=== PATIENT | female | born 1965 | race African-American/Black ===

== ENCOUNTER 2016-05-13 15:53 | Emergency (ER) | payer OTHER ==
[~2016-05-13 15:53] MED LIST: ALBU0.086 NEB; BACT800T5 PO; CLON-352 PO; DILA8TAB4 PO; GLUCTAB PO; LANTUS2P SC; PYRI200T4 PO; RITO80S PO; TRUVTAB2 PO
== END 2016-05-13 16:00 | disposition left against medical advice (07) ==
LOC: NEDAMB 15:53
DX: R10.9 Unspecified abdominal pain (principal); Z53.21 Procedure and treatment not carried out due to patient leaving prior to being seen by health care provider
CPT/HCPCS: 99281

== ENCOUNTER 2016-06-28 17:45 | Emergency (ER) | payer OTHER ==
[~2016-06-28] VITALS: Ht 175.3 cm; Wt 133.5 kg
[2016-06-28 17:47] VITALS: BP 183/84; PULSE 84; RESP 24; TEMP 98.7; O2SAT 99
[2016-06-28] MEDS ORDERED: methylPREDNISolone SOD SUCC 125 MG/2 ML VIAL IM STA (19:29)
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
== END 2016-06-28 20:18 | disposition home or self-care (01) ==
LOC: NETRI 17:45
DX: S16.1XXA Strain of muscle, fascia and tendon at neck level, initial encounter (principal); S39.012A Strain of muscle, fascia and tendon of lower back, initial encounter; V49.40XA Driver injured in collision with unspecified motor vehicles in traffic accident, initial encounter
CPT/HCPCS: 96372; 99282; J2930

== ENCOUNTER 2016-08-06 09:09 | Emergency (ER) | payer OTHER ==
[~2016-08-06] VITALS: Ht 175.3 cm; Wt 139.0 kg
[2016-08-06 09:10] VITALS: BP 180/77; PULSE 78; RESP 20; TEMP 99.1; O2SAT 98
--- NOTE | 2016-08-06 09:18 | PD ---
HPI . right eye drainage and pain Chief Complaint: Eye Problems/Injury Time Seen by Provider: 09:18 Travel History International Travel<30 days: No Contact w/Intl Traveler<30days: No Traveled to known affect area: No History of Present Illness HPI 50-year-old female with history of hypertension, diabetes, COPD, asthma, anxiety and HIV here with complaints of right eye pain for about 5 days. Patient says initially about 1 week prior to Tuesday she had right eye swelling. She says that subsided and then this Tuesday she started to experience some right eye pain and discharge. She says that for the past several days she's been having intermittent swelling of the right eye and eyelid. She admits to purulent drainage and having crust formation over her eye in the morning. She tells me that she has to pick it off. She admits to pain in her eye, but denies any foreign body sensation or trauma to the area. She does have a floor assembler, but has not seen them since July 2015. She denies any fever or chills. She has no abnormal skin lesions or pain elsewhere. PFSH Past Medical History Asthma: Yes Anxiety: Yes Cardiac Catheterization: No Cardiovascular Problems: Yes (HTN) High Cholesterol: No Congestive Heart Failure: No Diabetes: Yes Hypertension: Yes Immune Disorder: Yes (HIV +) Respiratory: Yes (COPD) Integumentary: Yes (S/P MRSA AFTER C SEC IN JAN 01) Myocardial Infarction: No Menopausal: No : 11 Para: 10 : 1 Past Surgical History Section: Yes (X2) Coronary Artery Bypass Graft: No Gynecologic Surgery: Yes (HX OF MRSA FOLLOWING C SECTION 12/26/06) Social History Alcohol Use: No Tobacco Use: Yes (2-3 CIGS PER DAY) Substance Use: No Allergies-Medications (Allergen,Severity, Reaction): Coded Allergies: Morphine (Verified Allergy, Severe, 06/28/16) Percocet (Verified Allergy, Severe, N/V-HIVES, 06/28/16) Reported Meds & Prescriptions Reported Meds & Active Scripts Active Erythromycin Opth Oint 5 Mg/Gm Oint 1 Applic RIGHT EYE BID 5 Days Proventil Ud 0.083% (2.5 Mg/3 Ml) (Albuterol Sulfate) 2.5 Mg/3 Ml Inha 2.5 Mg NEB Q4HR NEB Reported Dilaudid 8 mg (Hydromorphone HCl) 8 Mg Tab 8 Mg PO Q6H Lantus (Insulin Glargine) 100 Units/Ml Inj 20 Unit SC DAILY Glucophage XR 24 HR (Metformin HCl) 500 Mg Tab 500 Mg PO BIDPC Truvada (Emtricitabine/Tenofovir) Tab 1 Tab PO DAILY Norvir oral solution (Ritonavir) 80 Mg/Ml Tia 100 Mg PO DAILY Clonidine HCl ER (Clonidine HCl (Adhd)) 0.1 Mg Tab 0.3 Mg PO TID Review of Systems General / Constitutional: No: Fever Eyes: Positive: Drainage, Pain, No: Visual changes HENT: No: Headaches Cardiovascular: No: Chest Pain or Discomfort Respiratory: No: Shortness of Breath Gastrointestinal: No: Abdominal Pain Genitourinary: No: Dysuria Musculoskeletal: No: Pain Skin: No Rash Neurologic: No: Weakness Psychiatric: No: Depression Endocrine: No: Polydipsia Hematologic/Lymphatic: No: Easy Bruising Physical Exam Narrative GENERAL: AAO x 3, no acute distress, Well-nourished, well-developed patient. SKIN: Warm and dry. No visible rashes or bruising. HEAD: Normocephalic and atraumatic. EYES: No scleral icterus. EOM intact, PERRLA, Right eye: + injection, erythema present, but mild. no purulent drainage visualized. left eye normal ENT: No nasal drainage noted. Mucous membranes pink. Airway patent. NECK: Supple, trachea midline. No JVD. CARDIOVASCULAR: Regular rate and rhythm without murmurs, gallops, or rubs. RESPIRATORY: Breath sounds equal bilaterally. No accessory muscle use. No rhonchi or rales. GASTROINTESTINAL: Abdomen soft, non-tender, nondistended. EXTREMITIES: No cyanosis or edema. BACK: Nontender without obvious deformity. No CVA tenderness. PSYCH: AAO x 3, normal affect. Data Data Last Documented VS Vital Signs Date Time Temp Pulse Resp B/P Pulse Ox O2 Delivery O2 Flow Rate FiO2 08/06/16 09:10 99.1 78 20 180/77 98 Room Air MDM Medical Decision Making Medical Screen Exam Complete: Yes Emergency Medical Condition: Yes Medical Record Reviewed: Yes Differential Diagnosis conjunctivitis, less likely acute angle glaucoma, less likely retinal detachment Narrative Course 50-year-old female with history of hypertension, diabetes, COPD, asthma, anxiety and HIV here with complaints of right eye pain for about 5 days. Patient says initially about 1 week prior to Tuesday she had right eye swelling. She says that subsided and then this Tuesday she started to experience some right eye pain and discharge. She says that for the past several days she's been having intermittent swelling of the right eye and eyelid. She admits to purulent drainage and having crust formation over her eye in the morning. She tells me that she has to pick it off. She admits to pain in her eye, but denies any foreign body sensation or trauma to the area. She does have a floor assembler, but has not seen them since July 2015. She denies any fever or chills. She has no abnormal skin lesions or pain elsewhere. Patient seen and examined. She appears to have right eye conjunctivitis. She does admit to pain. Tonopen readings: right eye 21, 23, 24, left eye 21, 24, 25 I explained that her readings are slightly elevated and I recommend f/u with floor assembler today. I have provided her with antibiotic eye ointment. Patient verbalized understanding of instructions, questions were answered, and thanked me for their care. I advised them if their condition worsens, please return to the nearest emergency room for further care. Procedures Procedure Narrative Fluorescein eye staining procedure: right eye proparacaine drops instilled into the right eye Local anesthesia was accomplished. the eye was inspected for any type of obvious foreign body: none fluorescein stain was applied to look for corneal abrasion: none Diagnosis Primary Impression: Conjunctivitis Qualified Code: H10.31 - Acute conjunctivitis of right eye, unspecified acute conjunctivitis type Referrals: [employer] [facility] Patient Instructions: General Instructions Additional Instructions: Please call your eye doctor today and get in for an appointment. Please return to emergency department if your symptoms return or worsen. Follow up with your primary care provider. Take medications as prescribed. Med/Other Pt SpecificInfo: Prescription(s) given Scripts Erythromycin Opth Oint 5 Mg/Gm Oint1 Applic RIGHT EYE BID 5 Days Ref 0 Prov:Leonard Kulkarni MD 08/06/16 Disposition: 01 DISCHARGE HOME Condition: Stable Mary Silva August 06, 2016 09:18
[2016-08-06] MEDS ORDERED: ERYTOIN10 RIGHT EYE (09:28)
== END 2016-08-06 09:44 | disposition home or self-care (01) ==
LOC: NEPK 09:09
DX: H10.9 Unspecified conjunctivitis (principal); I10 Essential (primary) hypertension; E11.9 Type 2 diabetes mellitus without complications; J45.909 Unspecified asthma, uncomplicated; J44.9 Chronic obstructive pulmonary disease, unspecified; Z21 Asymptomatic human immunodeficiency virus [HIV] infection status; Z86.14 Personal history of Methicillin resistant Staphylococcus aureus infection; F17.210 Nicotine dependence, cigarettes, uncomplicated
CPT/HCPCS: 99283

== ENCOUNTER 2016-11-16 15:13 | Observation (INO) | payer OTHER ==
[~2016-11-16] VITALS: Ht 175.3 cm; Wt 134.0 kg
[~2016-11-16 15:13] MED LIST changes: -BACT800T5 PO; +ERYTOIN10 RIGHT EYE; -PYRI200T4 PO
[2016-11-16 15:14] VITALS: BP 179/88; PULSE 76; RESP 18; TEMP 99; O2SAT 98
--- NOTE | 2016-11-16 16:12 | PD ---
HPI Chief Complaint: Diabetic Time Seen by Provider: 16:12 Travel History International Travel<30 days: No Contact w/Intl Traveler<30days: No Traveled to known affect area: No History of Present Illness HPI 51-year-old female came to the emergency room with history of significant vaginal irritation for past 2-3 days that is progressively worsening, left- sided chest pain last night and sugar running high. Patient is a diabetic and her blood sugar in triage was 235. She says she supposed to be on metformin and insulin but her doctor did not continue her metformin prescriptions and hence currently she is only on insulin. Please see her blood sugar has been more than 200 and up to 350. Currently she is chest pain-free. Last night the pain was on the left side of her chest radiating down the left arm. Her main concern right now is her vaginal irritation. [facility] Past Medical History Narrative Medical List of her past medical, surgical, social and family history is reviewed from the nursing note. Asthma: Yes Anxiety: Yes Cardiac Catheterization: No Cardiovascular Problems: Yes High Cholesterol: No Congestive Heart Failure: No Diabetes: Yes Hypertension: Yes Immune Disorder: Yes (HIV +) Respiratory: Yes Integumentary: Yes (S/P MRSA AFTER C SEC IN JAN 01) Myocardial Infarction: No Menopausal: No : 11 Para: 10 : 1 Past Surgical History Section: Yes (X2) Coronary Artery Bypass Graft: No Gynecologic Surgery: Yes (HX OF MRSA FOLLOWING C SECTION 12/26/06) Social History Alcohol Use: No Tobacco Use: Yes (2-3 CIGS PER DAY) Substance Use: No Allergies-Medications (Allergen,Severity, Reaction): Coded Allergies: acetaminophen (Unverified Allergy, Severe, N/V-HIVES, 11/16/16) morphine (Unverified Allergy, Severe, 11/16/16) oxycodone (Unverified Allergy, Severe, N/V-HIVES, 11/16/16) Comments List of her allergies reviewed from the nursing note. Reported Meds & Prescriptions Reported Meds & Active Scripts Active Reported Albuterol Neb (Albuterol Sulfate) 2.5 Mg/0.5 Ml Neb 2.5 Mg NEB Q4HR NEB PRN Note: The Albuterol Sulfate Inhalation Solution is concentrated and must be diluted. Read complete instructions carefully before using. Truvada (Emtricitabine-Tenofovir Disoproxil Fumarate) 100-150 Mg Tab 1 Tab PO DAILY Lantus Inj (Insulin Glargine) 1,000 Unit/10 Ml Vial 29 Units SQ HS Metformin (Metformin HCl) 500 Mg Tab 500 Mg PO BIDPC With meals Norvir (Ritonavir) 100 Mg Cap 100 Mg PO DAILY Clonidine (Clonidine HCl) 0.3 Mg Tab 0.3 Mg PO TID Narrative Medication List of her home medications reviewed from the nursing note. Review of Systems Except as stated in HPI: all other systems reviewed are Neg Physical Exam Narrative GENERAL: Awake, alert, morbidly obese, moderate distress SKIN: Focused skin assessment warm/dry. HEAD: Atraumatic. Normocephalic. EYES: Pupils equal and round. No scleral icterus. No injection or drainage. ENT: No nasal bleeding or discharge. Mucous membranes pink and moist. NECK: Trachea midline. No JVD. CARDIOVASCULAR: Regular rate and rhythm. No murmur appreciated. RESPIRATORY: No accessory muscle use. Clear to auscultation. Breath sounds equal bilaterally. GASTROINTESTINAL: Abdomen soft, non-tender, nondistended. Hepatic and splenic margins not palpable. MUSCULOSKELETAL: No obvious deformities. No clubbing. No cyanosis. No edema. NEUROLOGICAL: Awake and alert. No obvious cranial nerve deficits. Motor grossly within normal limits. Normal speech. PSYCHIATRIC: Appropriate mood and affect; insight and judgment normal. Data Data Last Documented VS Vital Signs Date Time Temp Pulse Resp B/P (MAP) Pulse Ox O2 Delivery O2 Flow Rate FiO2 11/16/16 16:32 75 19 168/104 (125) 98 Room Air 11/16/16 15:14 99.0 Orders Orders Electrocardiogram (11/16/16 15:21) Complete Blood Count With Diff (11/16/16 15:21) Basic Metabolic Panel (Bmp) (11/16/16 15:21) Ckmb (Isoenzyme) Profile (11/16/16 15:21) Troponin I (11/16/16 15:21) Sodium Chlor 0.9% 1000 Ml Inj (Ns 1000 M (11/16/16 16:30) Clonidine 0.1 Mg Patch.7d (Catapres-Tts (11/16/16 16:30) Gc And Chlamydia Pcr (11/16/16 18:06) Wet Prep Profile (11/16/16 18:06) Urinalysis - C+S If Indicated (11/16/16 18:10) Fluconazole (Diflucan) (11/16/16 18:30) Admit Order (Ed Use Only) (11/16/16 18:32) Labs Laboratory Tests Test 11/16/16 16:50 11/16/16 18:06 11/16/16 18:10 White Blood Count 11.1 TH/MM3 Red Blood Count 5.37 MIL/MM3 Hemoglobin 11.3 GM/DL Hematocrit 37.0 % Mean Corpuscular Volume 68.8 FL Mean Corpuscular Hemoglobin 20.9 PG Mean Corpuscular Hemoglobin Concent 30.4 % Red Cell Distribution Width 19.7 % Platelet Count 372 TH/MM3 Mean Platelet Volume 9.1 FL Neutrophils (%) (Auto) 61.7 % Lymphocytes (%) (Auto) 29.6 % Monocytes (%) (Auto) 7.2 % Eosinophils (%) (Auto) 0.9 % Basophils (%) (Auto) 0.6 % Neutrophils # (Auto) 6.8 TH/MM3 Lymphocytes # (Auto) 3.3 TH/MM3 Monocytes # (Auto) 0.8 TH/MM3 Eosinophils # (Auto) 0.1 TH/MM3 Basophils # (Auto) 0.1 TH/MM3 CBC Comment DIFF FINAL Differential Comment Blood Urea Nitrogen 9 MG/DL Creatinine 1.02 MG/DL Random Glucose 287 MG/DL Calcium Level 8.9 MG/DL Sodium Level 140 MEQ/L Potassium Level 3.9 MEQ/L Chloride Level 101 MEQ/L Carbon Dioxide Level 31.2 MEQ/L Anion Gap 8 MEQ/L Estimat Glomerular Filtration Rate 69 ML/MIN Total Creatine Kinase 85 U/L Troponin I LESS THAN 0.02 NG/ML Urine Color YELLOW Urine Turbidity HAZY Urine pH 6.5 Urine Specific [place] 1.048 Urine Protein 30 mg/dL Urine Glucose (UA) 1000 mg/dL Urine Ketones TRACE mg/dL Urine Occult Blood NEG Urine Nitrite NEG Urine Bilirubin NEG Urine Urobilinogen 2.0 MG/DL Urine Leukocyte Esterase SMALL Urine WBC 2 /hpf Urine Squamous Epithelial Cells 1 /hpf Urine Bacteria MANY /hpf Urine Mucus MOD /lpf Microscopic Urinalysis Comment CULTURE INDICATED Chlamydia trachomatis DNA (PCR) NOT DETECTED Neisseria gonorrhoeae DNA (PCR) NOT DETECTED Clue Cells (Wet Prep) NONE SEEN Vaginal Trichomonas (Wet Prep) NONE SEEN Vaginal Yeast (Wet Prep) NONE SEEN MDM Medical Decision Making Medical Screen Exam Complete: Yes Emergency Medical Condition: Yes Medical Record Reviewed: Yes Interpretation(s) Twelve-lead EKG was reviewed by me. Normal sinus rhythm, normal axis, nonspecific ST-T wave changes. Heart rate of 67 bpm Differential Diagnosis Hyperglycemia, DKA, ACS, non-STEMI, aniket vaginitis Narrative Course 6:16 PM awaiting for blood test results to come back. Based on the pelvic exam I'll order Diflucan. Patient was given 1 L of IV fluid bolus. 6:33 PM blood test results of back and patient is hyperglycemic. Rest of the blood test results are acceptable. I would like to admit this patient to the chest pain center because of the episode she had last night. She has risk factors in the form of her obesity, uncontrolled diabetes. The mfts will decide on the stress test. Procedures EKG Prior to Arrival: No Diagnosis Primary Impression: Chest pain Qualified Codes: R07.9 - Chest pain, unspecified Additional Impressions: Candidal vaginitis Morbid obesity Admitting Information Admitting Physician Requests: Observation Leonard Kulkarni MD Nov 16, 2016 16:12
[2016-11-16] MEDS ORDERED: cloNIDine HCL 0.1 MG/24 HR PATCH T-DERMAL ONE (16:30)
[2016-11-16] MEDS ORDERED: SODIUM CHLOR 0.9% 1000 ML INJ 1,000 ML IV ONE (16:30)
[2016-11-16] MEDS ORDERED: EMTR1TAB5 PO (16:31)
[2016-11-16] MEDS ORDERED: RITO100 PO (16:31)
[2016-11-16] MEDS ORDERED: ALBU.5I NEB (16:31)
[2016-11-16] MEDS ORDERED: LANTUS2P SQ (16:31)
[2016-11-16] MEDS ORDERED: CLON0.3T PO (16:31)
[2016-11-16] MEDS ORDERED: METF500T PO (16:31)
[2016-11-16 16:32] VITALS: BP 168/104; PULSE 75; RESP 19; O2SAT 98
[2016-11-16 18:07] LABS: AUTOMATED NEUTROPHIL # 6.8 TH/MM3 (1.8-7.7); BASOPHIL # 0.1 TH/MM3 (0-0.2); BASOPHIL % 0.6 % (0.0-2.0); EOSINOPHIL # 0.1 TH/MM3 (0-0.4); EOSINOPHIL % 0.9 % (0.0-4.0); HEMO FLAGS DIFF FINAL; LYMPH % 29.6 % (9.0-44.0); LYMPHOCYTE # 3.3 TH/MM3 (1.0-4.8); MEAN CELL VOLUME 68.8 FL (80.0-100.0); MEAN CORPUSCULAR HEMOGLOBIN 20.9 PG (27.0-34.0); MEAN CORPUSCULAR HGB CONC 30.4 % (32.0-36.0); MONO % 7.2 % (0.0-8.0); NEUT % 61.7 % (16.0-70.0); PLATELET COUNT 372 TH/MM3 (150-450); RED BLOOD COUNT 5.37 MIL/MM3 (4.00-5.30); RED CELL DISTRIBUTION WIDTH 19.7 % (11.6-17.2); WHITE BLOOD COUNT 11.1 TH/MM3 (4.0-11.0)
[2016-11-16 18:30] LABS: ANION GAP 8 MEQ/L (5-15); BICARBONATE 31.2 MEQ/L (21.0-32.0); BLOOD UREA NITROGEN 9 MG/DL (7-18); CHLORIDE 101 MEQ/L (98-107); CREATINE KINASE 85 U/L (26-192); GLOMERULAR FILTRATION RATE 69 ML/MIN (>89); POTASSIUM 3.9 MEQ/L (3.5-5.1); SODIUM (NA) 140 MEQ/L (136-145)
[2016-11-16] MEDS ORDERED: FLUCONAZOLE 100 MG TAB PO ONE (18:30)
[2016-11-16 19:04] LABS: BACTERIA, URINE MANY /hpf; BLOOD, URINE NEG (NEG); COMMENT (UR) CULTURE INDICATED; CULTURE IF INDICATED CULTURE INDICATED; GLUCOSE,URINE 1000 mg/dL (NEG); KETONE, URINE TRACE mg/dL (NEG); MUCUS URINE MOD /lpf (OCC); NITRITE,URINE NEG (NEG); PH, URINE 6.5 (5.0-8.5); SQUAMOUS EPITHELIAL CELL URINE 1 /hpf (0-5); URINE COLOR YELLOW (YELLW/STRAW)
[2016-11-16 20:06] VITALS: BP 232/98; PULSE 80; RESP 17; TEMP 98.7; O2SAT 98
[2016-11-16] MEDS ORDERED: cloNIDine HCL 0.3 MG TAB PO ONE (20:15)
[2016-11-16 22:05] VITALS: BP 229/96; PULSE 60; RESP 18; O2SAT 98
[2016-11-16] MEDS ORDERED: hydrALAZINE HCL 20 MG/ML VIAL IV PUSH ONE (22:15)
[2016-11-16 22:59] LABS: CHLAMYDIA PCR NOT DETECTED (NOT DETECT); NEISSERIA PCR NOT DETECTED (NOT DETECT)
[2016-11-16] MEDS ORDERED: SODIUM CHLORIDE 0.9% FLUSH 10 ML FLUSH IV FLUSH PRN (23:45)
[2016-11-16] MEDS ORDERED: NITROGLYCERIN 0.4 MG SL 25 TABS/BTL SL PRN (23:45)
[2016-11-16] MEDS ORDERED: ONDANSETRON HCL 4 MG/2 ML VIAL IV PRN (23:45)
[2016-11-17] VITALS (9 sets, daily range): BP systolic 163–183; BP diastolic 70–84; PULSE 60–78; RESP 17–20; TEMP 98.2–98.7; O2SAT 96–98
[2016-11-17 00:23] LABS: CREATINE KINASE 70 U/L (26-192)
[2016-11-17] MEDS ORDERED: RITONAVIR 100 MG TAB PO SCH ×2 (00:30→09:00)
[2016-11-17 04:35] LABS: CREATINE KINASE 77 U/L (26-192)
--- NOTE | 2016-11-17 08:14 | HHI.HP ---
HPI Primary Care Physician Josefina Riley MD Chief Complaint Chest pain History of Present Illness 51-year-old female with history of diabetes, hypertension, HIV positive, and asthma presents to emergency room for evaluation of chest pain. Onset Tuesday evening while watching TV. Location substernal. Characterized as pressure. Pain came on quickly. No radiation of pain. Duration waxed and waned since Tuesday evening total duration 10 minutes. Associated symptoms of nausea. Denied vomiting, shortness breath, diaphoresis. No known precipitating or relieving factors. Reports she recently came emergency room for multiple complaints including blurred vision, fatigue, vaginal irritation for 2 days, and elevated blood sugar. Reported chest pain to ER physician therefore was placed in chest pain center. Review of Systems General: Fatigue last few days. No weakness, fever, chills, recent illness, or change in appetite. HEENT: Reports intermittent blurred vision. No current blurred vision. No [place], no nasal congestion or drainage, no dysphasia CV: As stated above. Denies any current CP and pressure. No palpitations, intermittent leg pain, or dizziness. RESP: No SOB, cough, wheeze, or recent URI. History of asthma. GI: No nausea, vomiting, bowel changes, diarrhea, constipation, or pain. : No dysuria, urgency, frequency, hematuria. ENCAPSULATOR: Vaginal itching and irritation EXT: No lower leg edema, no parathesias MS: No discomfort or change in ROM NEURO: No change in memory, dizziness, difficulty with balance, LOC, motor/ sensory deficits PSYCH: No anxiety, depression, suicidal ideation Past Family Social History Allergies: Coded Allergies: acetaminophen (Unverified Allergy, Severe, N/V-HIVES, 11/16/16) morphine (Unverified Allergy, Severe, 11/16/16) oxycodone (Unverified Allergy, Severe, N/V-HIVES, 11/16/16) Past Medical History Diabetes, hypertension, morbidly obese, asthma, anxiety, HIV positive Past Surgical History 2 Reported Medications Active Reported Albuterol Neb (Albuterol Sulfate) 2.5 Mg/0.5 Ml Neb 2.5 Mg NEB Q4HR NEB PRN Note: The Albuterol Sulfate Inhalation Solution is concentrated and must be diluted. Read complete instructions carefully before using. Truvada (Emtricitabine-Tenofovir Disoproxil Fumarate) 100-150 Mg Tab 1 Tab PO DAILY Lantus Inj (Insulin Glargine) 1,000 Unit/10 Ml Vial 29 Units SQ HS Metformin (Metformin HCl) 500 Mg Tab 500 Mg PO BIDPC With meals Norvir (Ritonavir) 100 Mg Cap 100 Mg PO DAILY Clonidine (Clonidine HCl) 0.3 Mg Tab 0.3 Mg PO TID Active Ordered Medications Current Medications Medications (Trade) Dose Ordered Sig/Stephanie Route Start Time Stop Time Status Last Admin (NS Flush) 2 ml UNSCH PRN IV FLUSH 11/16/16 23:45 (NS Flush) 2 ml BID IV FLUSH 11/17/16 09:00 (Zofran Inj) 4 mg Q6H PRN IV 11/16/16 23:45 (Nitrostat Sl) 0.4 mg Q5M PRN SL 11/16/16 23:45 (Aspirin) 325 mg DAILY PO 11/17/16 09:00 (Norvir) 100 mg ONCE PO 11/17/16 00:30 11/17/16 01:16 Social History Known diabetes and hypertension. No known hyperlipidemia. Not taking statin therapy. Endorses 2-3 cigarettes daily. Denies any alcohol or illegal drug use. Endorse sedentary lifestyle. Past cardiac testing 10/17/2015 cardiac catheterization (Dr. Cardenas)-Impressions 1. Normal left ventricular function. 2. Normal coronary arteries. 3. Noncardiac chest pain. Physical Exam Vital Signs Vital Signs Date Time Temp Pulse Resp B/P (MAP) Pulse Ox O2 Delivery O2 Flow Rate FiO2 11/17/16 08:02 21 11/17/16 04:39 98.2 68 20 183/78 (113) 98 11/17/16 04:00 72 11/17/16 01:08 98.5 74 20 163/70 (101) 96 11/17/16 00:59 78 11/17/16 00:25 98 21 11/17/16 00:10 60 17 164/80 (108) 98 11/16/16 22:05 60 18 229/96 (140) 98 Room Air 11/16/16 20:06 98.7 80 17 232/98 (142) 98 Room Air 11/16/16 16:32 75 19 168/104 (125) 98 Room Air 11/16/16 15:14 99.0 76 18 179/88 (118) 98 Room Air Physical Exam GENERAL: Alert WN, WD, NAD, pleasant, morbidly obese female HEAD: NC, AT NECK: Supple, no masses, trachea midline CV: RRR, without murmur, rub, gallop, no JVD, S1-S2 no S3-S4. RESP: Clear lungs throughout bilateral, no crackles, wheeze, rhonchi, symmetrical chest rise, nonlabored, able to speak in full sentences ABD: Soft, NT, ND, no masses, positive bowel tones, obese MS: Normal tone 4 extremities, nontender, no obvious deformities, full range of motion NEURO: CN II through CN XII grossly intact, motor strength 5/5 PSYCH: A+O 3, pleasant affect, appropriate speech, appropriate mood and affect , insight and judgment SKIN: Normal turgor, normal texture Laboratory Laboratory Tests Test 11/16/16 16:50 11/16/16 18:06 11/16/16 18:10 11/16/16 23:45 White Blood Count 11.1 Red Blood Count 5.37 Hemoglobin 11.3 Hematocrit 37.0 Mean Corpuscular Volume 68.8 Mean Corpuscular Hemoglobin 20.9 Mean Corpuscular Hemoglobin Concent 30.4 Red Cell Distribution Width 19.7 Platelet Count 372 Mean Platelet Volume 9.1 Neutrophils (%) (Auto) 61.7 Lymphocytes (%) (Auto) 29.6 Monocytes (%) (Auto) 7.2 Eosinophils (%) (Auto) 0.9 Basophils (%) (Auto) 0.6 Neutrophils # (Auto) 6.8 Lymphocytes # (Auto) 3.3 Monocytes # (Auto) 0.8 Eosinophils # (Auto) 0.1 Basophils # (Auto) 0.1 CBC Comment DIFF FINAL Differential Comment Blood Urea Nitrogen 9 Creatinine 1.02 Random Glucose 287 Calcium Level 8.9 Sodium Level 140 Potassium Level 3.9 Chloride Level 101 Carbon Dioxide Level 31.2 Anion Gap 8 Estimat Glomerular Filtration Rate 69 Total Creatine Kinase 85 70 Troponin I LESS THAN 0.02 LESS THAN 0.02 Urine Color YELLOW Urine Turbidity HAZY Urine pH 6.5 Urine Specific [place] 1.048 Urine Protein 30 Urine Glucose (UA) 1000 Urine Ketones TRACE Urine Occult Blood NEG Urine Nitrite NEG Urine Bilirubin NEG Urine Urobilinogen 2.0 Urine Leukocyte Esterase SMALL Urine WBC 2 Urine Squamous Epithelial Cells 1 Urine Bacteria MANY Urine Mucus MOD Microscopic Urinalysis Comment CULTURE INDICATED Chlamydia trachomatis DNA (PCR) NOT DETECTED Neisseria gonorrhoeae DNA (PCR) NOT DETECTED Clue Cells (Wet Prep) NONE SEEN Vaginal Trichomonas (Wet Prep) NONE SEEN Vaginal Yeast (Wet Prep) NONE SEEN Test 11/17/16 03:30 Total Creatine Kinase 77 Troponin I LESS THAN 0.02 Date/Time Source Procedure Growth Status 11/16/16 18:06 Urine Clean Catch Urine Culture Pending Received Result Diagram: 11/16/16164911/16/161649 Course EKG Normal sinus rhythm, no ST or T-segment changes Caprini VTE Risk Assessment Caprini VTE Risk Assessment: No/Low Risk (score <= 1) Caprini Risk Assessment Model Point Value = 1 Point Value = 2 Point Value = 3 Point Value = 5 Age 41-60 Minor surgery BMI > 25 kg/m2 Swollen legs Varicose veins or History of unexplained or recurrent spontaneous Oral contraceptives or hormone replacement Sepsis (< 1 month) Serious lung disease, including pneumonia (< 1 month) Abnormal pulmonary function Acute myocardial infarction Congestive heart failure (< 1 month) History of inflammatory bowel disease Medical patient at bed rest Age 61-74 Arthroscopic surgery Major open surgery (> 45 min) Laparoscopic surgery (> 45 min) Malignancy Confined to bed (> 72 hours) Immobilizing plaster cast Central venous access Age >= 75 History of VTE Family history of VTE Factor V Leiden Prothrombin [id number] Lupus anticoagulant Anticardiolipin antibodies Elevated serum homocysteine Heparin-induced thrombocytopenia Other congenital or acquired thrombophilia Stroke (< 1 month) Elective arthroplasty Hip, pelvis, or leg fracture Acute spinal cord injury (< 1 month) Prophylaxis Regimen Total Risk Factor Score Risk Level Prophylaxis Regimen 0-1 Low Early ambulation 2 Moderate Order ONE of the following: *Sequential Compression Device (SCD) *Heparin 5000 units SQ BID 3-4 Higher Order ONE of the following medications: *Heparin 5000 units SQ TID *Enoxaparin/Lovenox 40 mg SQ daily (WT < 150 kg, CrCl > 30 mL/min) *Enoxaparin/Lovenox 30 mg SQ daily (WT < 150 kg, CrCl > 10-29 mL/min) *Enoxaparin/Lovenox 30 mg SQ BID (WT < 150 kg, CrCl > 30 mL/min) AND/OR *Sequential Compression Device (SCD) 5 or more Highest Order ONE of the following medications: *Heparin 5000 units SQ TID (Preferred with Epidurals) *Enoxaparin/Lovenox 40 mg SQ daily (WT < 150 kg, CrCl > 30 mL/min) *Enoxaparin/Lovenox 30 mg SQ daily (WT < 150 kg, CrCl > 10-29 mL/min) *Enoxaparin/Lovenox 30 mg SQ BID (WT < 150 kg, CrCl > 30 mL/min) AND *Sequential Compression Device (SCD) Assessment and Plan Assessment and Plan #1 Atypical chest pain-admitted to chest pain center. Ruled out with 3 sets of EKGs, cardiac enzymes, monitor overnight. Seen and evaluated by Dr. Janet Cardenas. No further cardiac testing as patient had normal cardiac catheterization September 2015. Encouraged to follow-up with PCP and keep appointment scheduled for later this afternoon regarding her other complaints. Patient agreeable to plan of care. #2 Diabetes-continue metformin, follow-up with PCP, instructed her to notify PCP of intermittent blurred vision and increasing fatigue #3 Hypertension-continue clonidine, encouraged her to speak with PCP regarding other blood pressure options, encouraged low sodium diet #4 Adri vaginitis-pelvic exam completed by BAILEE FERNANDEZ and gave her Dayanna Davies Nov 17, 2016 08:14
--- NOTE | 2016-11-17 08:16 | HHI.DCPOC ---
Discharge Care Plan Diagnosis: (1) Atypical chest pain (2) DM (diabetes mellitus) (3) HTN (hypertension) (4) Morbid obesity Goals to Promote Your Health * To prevent worsening of your condition and complications * To maintain your health at the optimal level Directions to Meet Your Goals Take your medications as prescribed Follow your dietary instruction Follow activity as directed Keep your appointments as scheduled Take your immunizations and boosters as scheduled If your symptoms worsen call your PCP, if no PCP go to Urgent Care Center or Emergency Room Smoking is Dangerous to Your Health. Avoid second hand smoke Call the 24-hour hour crisis hotline for domestic abuse at Dayanna Liao Nov 17, 2016 08:16
[2016-11-17] MEDS ORDERED: cloNIDine HCL 0.3 MG TAB PO SCH (09:00)
[2016-11-17] MEDS ORDERED: metFORMIN HCL 500 MG TAB PO SCH (09:00)
[2016-11-17] MEDS ORDERED: ASPIRIN 325 MG TAB PO SCH (09:00)
[2016-11-17] MEDS ORDERED: SODIUM CHLORIDE 0.9% FLUSH 10 ML FLUSH IV FLUSH SCH (09:00)
[2016-11-17] MEDS ORDERED: TRUVADA PO SCH (09:00)
--- NOTE | 2016-11-17 17:48 | EKG ---
Date Performed: 11/17/2016 Time Performed: 02:30:47 PTAGE: 51 years EKG: Sinus rhythm NORMAL ECG Since PREVIOUS TRACING , no significant change noted PREVIOUS TRACIN11/16/2016 23.42 DOCTOR: Janet Cardenas Interpretating Date/Time 11/17/2016 17:46:51
--- NOTE | 2016-11-17 17:49 | EKG ---
Date Performed: 11/16/2016 Time Performed: 23:42:26 PTAGE: 51 years EKG: Sinus rhythm NORMAL ECG Since PREVIOUS TRACING , no significant change noted PREVIOUS TRACIN11/16/2016 16.13 DOCTOR: Janet Cardenas Interpretating Date/Time 11/17/2016 17:47:50
--- NOTE | 2016-11-17 19:54 | EKG ---
Date Performed: 11/16/2016 Time Performed: 16:13:32 PTAGE: 51 years EKG: Sinus rhythm NORMAL ECG PREVIOUS TRACING : 10/17/2015 13.04 Compared to prior tracing no significant change DOCTOR: Eddie Chang Interpretating Date/Time 11/17/2016 19:52:51
== END 2016-11-17 09:41 | disposition home or self-care (01) ==
LOC: NEPE 15:13 → NEDA 18:33 → NEDH 23:18 → NEPHCDU 11-17 02:38
PROVIDERS: ADMIT Internal Medicine Interventional Cardiology; ATTEND Internal Medicine Interventional Cardiology
DX: R07.89 Other chest pain (principal); I11.0 Hypertensive heart disease with heart failure; E11.65 Type 2 diabetes mellitus with hyperglycemia; E66.01 Morbid (severe) obesity due to excess calories; N39.0 Urinary tract infection, site not specified; B96.89 Other specified bacterial agents as the cause of diseases classified elsewhere; F17.210 Nicotine dependence, cigarettes, uncomplicated; Z79.4 Long term (current) use of insulin
CPT/HCPCS: 80048; 81001; 82550; 84484; 85025; 87086; 87210; 87491; 87591; 93005; 96361; 96374; 99285; G0378; J0360; J7030

== ENCOUNTER → 2016-12-24 | Outpatient (CLI) | payer OTHER ==
[~2016-12-24] MED LIST changes: +ALBU.5I NEB; -ALBU0.086 NEB; +BENZ100 PO; -CLON-352 PO; +CLON0.3T PO; -DILA8TAB4 PO; +EMTR1TAB5 PO; -ERYTOIN10 RIGHT EYE; -GLUCTAB PO; -LANTUS2P SC; +LANTUS2P SQ; +METF500T PO; +RITO100 PO; -RITO80S PO; -TRUVTAB2 PO
[2016-12-24 14:16] LABS: BASOPHIL # 0.1 TH/MM3 (0-0.2); BASOPHIL % 0.7 % (0.0-2.0); EOSINOPHIL # 0.2 TH/MM3 (0-0.4); EOSINOPHIL % 2.2 % (0.0-4.0); HEMATOCRIT 34.5 % (35.0-46.0); HEMO FLAGS DIFF FINAL; LYMPH % 37.1 % (9.0-44.0); LYMPHOCYTE # 2.8 TH/MM3 (1.0-4.8); MEAN CELL VOLUME 70.5 FL (80.0-100.0); MEAN CORPUSCULAR HEMOGLOBIN 21.6 PG (27.0-34.0); MEAN CORPUSCULAR HGB CONC 30.6 % (32.0-36.0); MONO % 7.7 % (0.0-8.0); NEUT % 52.3 % (16.0-70.0); PLATELET COUNT 450 TH/MM3 (150-450); RED BLOOD COUNT 4.88 MIL/MM3 (4.00-5.30); WHITE BLOOD COUNT 7.6 TH/MM3 (4.0-11.0)
[2016-12-24 14:26] LABS: BACTERIA, URINE MANY /hpf; BLOOD, URINE LARGE (NEG); GLUCOSE,URINE NEG (NEG); KETONE, URINE NEG (NEG); MUCUS URINE FEW /lpf (OCC); NITRITE,URINE POS (NEG); PH, URINE 7.5 (5.0-8.5); SQUAMOUS EPITHELIAL CELL URINE 4 /hpf (0-5); URINE COLOR YELLOW (YELLW/STRAW)
[2016-12-24 14:27] LABS: COMMENT (UR) CULTURE INDICATED; CULTURE IF INDICATED CULTURE INDICATED
[2016-12-24 14:40] LABS: ALT (GPT) 22 U/L (10-53); ANION GAP 7 MEQ/L (5-15); AST (GOT) 21 U/L (15-37); BICARBONATE 30.4 MEQ/L (21.0-32.0); BLOOD UREA NITROGEN 10 MG/DL (7-18); CHLORIDE 102 MEQ/L (98-107); GLOMERULAR FILTRATION RATE 79 ML/MIN (>89); GLUCOSE,FASTING 156 MG/DL (74-99); POTASSIUM 3.5 MEQ/L (3.5-5.1); SODIUM (NA) 139 MEQ/L (136-145)
[2016-12-24 14:43] LABS: ALKALINE PHOSPHATASE 74 U/L (45-117); HDL CHOLESTEROL 55.2 MG/DL (40.0-60.0); TOTAL BILIRUBIN ADULT 1.6 MG/DL (0.2-1.0)
[2016-12-24 17:24] LABS: HEMOGLOBIN A1a 1.6 %; HEMOGLOBIN A1b 2.9 %; HEMOGLOBIN Ao 76.9 %; HEMOGLOBIN LA1C 2.4 %; HEMOGLOBIN P3 4.3 %
[2016-12-29 13:49] LABS: HIV RNA COPIES LESS THAN 20.0 (<20); HIV RNA LOG COPIES LESS THAN 1.30 (<1.30)
== END ==
LOC: CLAB 13:30
PROVIDERS: ATTEND General Practice
DX: E87.8 Other disorders of electrolyte and fluid balance, not elsewhere classified (principal); D64.9 Anemia, unspecified; K75.9 Inflammatory liver disease, unspecified; A53.9 Syphilis, unspecified; N39.0 Urinary tract infection, site not specified; E55.9 Vitamin D deficiency, unspecified; E11.9 Type 2 diabetes mellitus without complications; B20 Human immunodeficiency virus [HIV] disease
CPT/HCPCS: 36415; 80053; 80061; 80074; 81001; 82306; 83036; 85025; 86592; 87077; 87086; 87186; 87536

== ENCOUNTER 2017-01-07 12:39 | Emergency (ER) | payer OTHER ==
[~2017-01-07] VITALS: Ht 175.3 cm; Wt 127.0 kg
[~2017-01-07 12:39] MED LIST changes: -BENZ100 PO
[2017-01-07 12:45] VITALS: BP 214/98; PULSE 94; RESP 15; TEMP 99.3; O2SAT 96
[2017-01-07] MEDS ORDERED: BENZ100 PO (14:04)
--- NOTE | 2017-01-07 14:06 | PD ---
HPI Chief Complaint: Cold / Flu Symptoms Time Seen by Provider: 13:25 Travel History International Travel<30 days: No Contact w/Intl Traveler<30days: No Traveled to known affect area: No History of Present Illness HPI 51-year-old female here requesting cough medication. Patient reports that three -day history of nasal congestion, sore throat, ear pain, cough. She was evaluated by her primary doctor and started on a Z-Kedar. Patient reports symptoms have persisted. She denies worsening of symptoms. She denies fever, chills, chest pain, shortness of breath, nausea vomiting or diarrhea. Patient has a history of HIV. She is compliant with her medications and report her last blood work this week her viral load was undetectable. FOR[facility]LY [facility], [facility] Past Medical History Asthma: Yes Anxiety: Yes Heart Rhythm Problems: No Cardiac Catheterization: Yes Cardiovascular Problems: Yes High Cholesterol: No Congestive Heart Failure: No Diabetes: Yes Patient Takes Glucophage: No Diminished Hearing: No Hypertension: Yes Immune Disorder: Yes (HIV +) Respiratory: Yes Integumentary: Yes (S/P MRSA AFTER C SEC IN JAN 01) Myocardial Infarction: No Tetanus Vaccination: Unknown Influenza Vaccination: Yes ?: Not Menopausal: No : 11 Para: 10 : 1 Past Surgical History Section: Yes (X2) Coronary Artery Bypass Graft: No Gynecologic Surgery: Yes (HX OF MRSA FOLLOWING C SECTION 12/26/06) Family History Family Myocardial Infarction: Yes Social History Alcohol Use: No Tobacco Use: Yes (2-3 CIGS PER DAY) Substance Use: No Allergies-Medications (Allergen,Severity, Reaction): Coded Allergies: acetaminophen (Unverified Allergy, Severe, N/V-HIVES, 01/07/17) morphine (Unverified Allergy, Severe, 01/07/17) oxycodone (Unverified Allergy, Severe, N/V-HIVES, 01/07/17) Reported Meds & Prescriptions Reported Meds & Active Scripts Active Tessalon Perles (Benzonatate) 100 Mg Cap 100 Mg PO TID PRN 5 Days Reported Albuterol Neb (Albuterol Sulfate) 2.5 Mg/0.5 Ml Neb 2.5 Mg NEB Q4HR NEB PRN Note: The Albuterol Sulfate Inhalation Solution is concentrated and must be diluted. Read complete instructions carefully before using. Truvada (Emtricitabine-Tenofovir Disoproxil Fumarate) 100-150 Mg Tab 1 Tab PO DAILY Lantus Inj (Insulin Glargine) 1,000 Unit/10 Ml Vial 29 Units SQ HS Metformin (Metformin HCl) 500 Mg Tab 500 Mg PO BIDPC With meals Norvir (Ritonavir) 100 Mg Cap 100 Mg PO DAILY Clonidine (Clonidine HCl) 0.3 Mg Tab 0.3 Mg PO TID Review of Systems Except as stated in HPI: all other systems reviewed are Neg General / Constitutional: No: Fever Eyes: No: Visual changes HENT: No: Headaches Cardiovascular: No: Chest Pain or Discomfort Respiratory: Positive: Cough, No: Shortness of Breath Gastrointestinal: No: Abdominal Pain Genitourinary: No: Dysuria Physical Exam Narrative GENERAL: Alert, well-appearing female in no acute distress. Resting comfortable and stretcher. SKIN: Warm and dry. HEAD: Atraumatic. Normocephalic. EYES: Pupils equal and round. No scleral icterus. No injection or drainage. ENT: No nasal bleeding or discharge. Mucous membranes pink and moist. NECK: Trachea midline. No JVD. CARDIOVASCULAR: Regular rate and rhythm. RESPIRATORY: No accessory muscle use. Clear to auscultation. Breath sounds equal bilaterally. GASTROINTESTINAL: Abdomen soft, non-tender, nondistended. Hepatic and splenic margins not palpable. MUSCULOSKELETAL: Extremities without clubbing, cyanosis, or edema. No obvious deformities. NEUROLOGICAL: Awake and alert. No obvious cranial nerve deficits. Motor grossly within normal limits. Five out of 5 muscle strength in the arms and legs. Normal speech. PSYCHIATRIC: Appropriate mood and affect; insight and judgment normal. Data Data Last Documented VS Vital Signs Date Time Temp Pulse Resp B/P (MAP) Pulse Ox O2 Delivery O2 Flow Rate FiO2 01/07/17 12:45 99.3 94 15 214/98 (136) 96 Orders Orders Ed Discharge Order (01/07/17 14:06) MDM Medical Decision Making Medical Screen Exam Complete: Yes Emergency Medical Condition: Yes Differential Diagnosis Otitis, pneumonia, URI, pharyngitis Narrative Course 55-year-old female here requesting cough medication. Patient had symptoms consistent with viral URI. She was seen by her PCP on Tuesday and prescribed azithromycin. She reports she is feeling better but the cough persists. She denies fever or chills. Her physical exam is reassuring. She is well and nontoxic appearing. She is found to be hypertensive on triage vital signs. She reports she did not take her clonidine this morning. She denies headache, visual changes, chest pain. She reports she'll take her clonidine upon discharge. Diagnosis Primary Impression: URI (upper respiratory infection) Qualified Codes: J06.9 - Acute upper respiratory infection, unspecified Referrals: Primary Care Physician Additional Instructions: Take the cough medication as needed. Follow-up with her primary doctor. Return to emergency department if he developed new or worsening symptoms. Scripts Benzonatate (Tessalon Perles) 100 Mg Cap 100 MG PO TID Y for COUGH for 5 Days, CAP 0 Refills Prov: Anupama Lee 01/07/17 Disposition: 01 DISCHARGE HOME Condition: Stable Anupama Lee Jan 07, 2017 14:06
== END 2017-01-07 14:18 | disposition home or self-care (01) ==
LOC: NEPC 12:39
DX: J06.9 Acute upper respiratory infection, unspecified (principal); F17.210 Nicotine dependence, cigarettes, uncomplicated
CPT/HCPCS: 99283

== ENCOUNTER 2017-02-23 13:51 | Emergency (ER) | payer MEDICAID, OTHER ==
[~2017-02-23] VITALS: Ht 175.3 cm; Wt 137.7 kg
[~2017-02-23 13:51] MED LIST changes: +BENZ100 PO
[2017-02-23 13:53] VITALS: BP 195/92; PULSE 81; RESP 18; TEMP 99.5; O2SAT 100
[2017-02-23] MEDS ORDERED: INSULIN (15:56)
[2017-02-23] MEDS ORDERED: CHOLESTEROL MED (15:56)
[2017-02-23] MEDS ORDERED: [UNRECOGNIZED DRUG - CODE] PO (15:56)
[2017-02-23] MEDS ORDERED: AMOX875T PO (16:08)
--- NOTE | 2017-02-23 16:09 | PD ---
HPI . Bilateral ear pain Chief Complaint: ENT Complaint Time Seen by Provider: 15:33 Travel History International Travel<30 days: No Contact w/Intl Traveler<30days: No Traveled to known affect area: No History of Present Illness HPI 51-year-old female patient presents emergency for evaluation of bilateral ear pain. Patient denies any fever, chills, malaise, shortness breath, chest pain, nausea, vomiting, diarrhea, throat pain or lightheadedness. Patient states the pain has been persistent for 2-3 days. Patient has history of hypertension, HIV and diabetes. PFSH Past Medical History Asthma: Yes Anxiety: Yes Heart Rhythm Problems: No Cardiac Catheterization: Yes Cardiovascular Problems: Yes (HTN) High Cholesterol: No Congestive Heart Failure: No Diabetes: Yes Diminished Hearing: No Hypertension: Yes Immune Disorder: Yes (HIV +) Respiratory: Yes (COPD) Integumentary: Yes (S/P MRSA AFTER C SEC IN JAN 01) Myocardial Infarction: No Menopausal: No : 11 Para: 10 : 1 Past Surgical History Section: Yes (X2) Coronary Artery Bypass Graft: No Gynecologic Surgery: Yes (HX OF MRSA FOLLOWING C SECTION 12/26/06) Social History Alcohol Use: No Tobacco Use: Yes (2-3 CIGS PER DAY) Substance Use: No Allergies-Medications (Allergen,Severity, Reaction): Coded Allergies: acetaminophen (Unverified Allergy, Severe, N/V-HIVES, 01/07/17) morphine (Unverified Allergy, Severe, 01/07/17) oxycodone (Unverified Allergy, Severe, N/V-HIVES, 01/07/17) Reported Meds & Prescriptions Reported Meds & Active Scripts Active Tessalon Perles (Benzonatate) 100 Mg Cap 100 Mg PO TID PRN 5 Days Reported Albuterol Neb (Albuterol Sulfate) 2.5 Mg/0.5 Ml Neb 2.5 Mg NEB Q4HR NEB PRN Note: The Albuterol Sulfate Inhalation Solution is concentrated and must be diluted. Read complete instructions carefully before using. Truvada (Emtricitabine-Tenofovir Disoproxil Fumarate) 100-150 Mg Tab 1 Tab PO DAILY Lantus Inj (Insulin Glargine) 1,000 Unit/10 Ml Vial 29 Units SQ HS Metformin (Metformin HCl) 500 Mg Tab 500 Mg PO BIDPC With meals Norvir (Ritonavir) 100 Mg Cap 100 Mg PO DAILY Clonidine (Clonidine HCl) 0.3 Mg Tab 0.3 Mg PO TID Review of Systems Except as stated in HPI: all other systems reviewed are Neg HENT: Positive: Earache Physical Exam Narrative GENERAL: Well-nourished, well-developed 51-year-old female patient in no acute distress. Nontoxic appearing. SKIN: Focused skin assessment warm/dry. HEAD: Normocephalic. Atraumatic. EYES: No scleral icterus. No injection or drainage. EARS: Bilateral pinnae and external canals appear within normal limits. Bilateral tympanic membranes are severely erythematous and dull. THROAT: No pharyngeal injection, exudates, or tonsillar hypertrophy. Airway is patent. NECK: Supple, trachea midline. No JVD or lymphadenopathy. CARDIOVASCULAR: Regular rate and rhythm without murmurs, gallops, or rubs. RESPIRATORY: Breath sounds equal bilaterally. No accessory muscle use. GASTROINTESTINAL: Abdomen soft, non-tender, nondistended. MUSCULOSKELETAL: No cyanosis, or edema. Data Data Last Documented VS Vital Signs Date Time Temp Pulse Resp B/P (MAP) Pulse Ox O2 Delivery O2 Flow Rate FiO2 02/23/17 13:53 99.5 81 18 195/92 (126) 100 Room Air MDM Medical Decision Making Medical Screen Exam Complete: Yes Emergency Medical Condition: Yes Differential Diagnosis Differential diagnoses include but not limited to otitis media, otitis externa, ear infection, upper respiratory infection Narrative Course 51-year-old female presents emergency department for evaluation of the bilateral ear pain. Physical exam is consistent with otitis media. Patient will be discharged home with prescription for amoxicillin and instructions to return the emergency Department with any worsening condition but otherwise follow-up with primary care. Diagnosis Primary Impression: Otitis media Qualified Codes: H66.93 - Otitis media, unspecified, bilateral Referrals: Primary Care Physician Patient Instructions: Earache (GEN), General Instructions, Serous Otitis Media (ED) Additional Instructions: Please return to emergency department if your symptoms return or worsen. Follow up with your primary care provider. Take medications as prescribed. Med/Other Pt SpecificInfo: Prescription(s) given Scripts Amoxicillin (Amoxicillin) 875 Mg Tab 875 MG PO BID for Infection for 10 Days, #20 TAB 0 Refills Prov: Dede Shelby 02/23/17 Disposition: 01 DISCHARGE HOME Condition: Stable Dede Shelby Feb 23, 2017 16:09
== END 2017-02-23 16:24 | disposition home or self-care (01) ==
LOC: NEPK 13:51
DX: H66.93 Otitis media, unspecified, bilateral (principal); I10 Essential (primary) hypertension; E11.9 Type 2 diabetes mellitus without complications; F41.9 Anxiety disorder, unspecified; J44.9 Chronic obstructive pulmonary disease, unspecified; F17.210 Nicotine dependence, cigarettes, uncomplicated; Z21 Asymptomatic human immunodeficiency virus [HIV] infection status; Z79.51 Long term (current) use of inhaled steroids; Z88.6 Allergy status to analgesic agent
CPT/HCPCS: 99283

== ENCOUNTER 2017-03-19 21:16 | Emergency (ER) | payer MEDICAID ==
[~2017-03-19] VITALS: Ht 175.3 cm; Wt 130.0 kg
[~2017-03-19 21:16] MED LIST changes: -ALBU.5I NEB; +AMOX875T PO; -BENZ100 PO; +CHOLESTEROL MED; +INSULIN; +[UNRECOGNIZED DRUG - CODE] PO
[2017-03-19 21:27] VITALS: BP 181/74; PULSE 90; RESP 20; TEMP 98.8; O2SAT 97
--- NOTE | 2017-03-19 21:44 | PD ---
HPI Chief Complaint: Diabetic Time Seen by Provider: 21:26 Travel History International Travel<30 days: No Contact w/Intl Traveler<30days: No Traveled to known affect area: No History of Present Illness HPI 51yo F with PMH of HTN and DM (metformin and lantus) presents to the ED with c/ o elevated blood glucose for a few days. Said she has been feeling unwell and generalized weakness for a few days as well as increased urinary frequency. Denies any fever, chest pain, sob, n/v, abdominal pain. PFSH Past Medical History Asthma: Yes Anxiety: Yes Heart Rhythm Problems: No Cardiac Catheterization: Yes Cardiovascular Problems: Yes (HTN) High Cholesterol: No Congestive Heart Failure: No Diabetes: Yes Patient Takes Glucophage: No Diminished Hearing: No Hypertension: Yes Immune Disorder: Yes (HIV +) Respiratory: Yes (COPD) Integumentary: Yes (S/P MRSA AFTER C SEC IN JAN 01) Myocardial Infarction: No Tetanus Vaccination: Unknown ?: Not Menopausal: No : 11 Para: 10 : 1 Past Surgical History Section: Yes (X2) Coronary Artery Bypass Graft: No Gynecologic Surgery: Yes (HX OF MRSA FOLLOWING C SECTION 12/26/06) Family History Family Myocardial Infarction: Yes Social History Alcohol Use: No Tobacco Use: Yes (2-3 CIGS PER DAY) Substance Use: No Allergies-Medications (Allergen,Severity, Reaction): Coded Allergies: acetaminophen (Unverified Allergy, Severe, N/V-HIVES, 03/19/17) morphine (Unverified Allergy, Severe, 03/19/17) oxycodone (Unverified Allergy, Severe, N/V-HIVES, 03/19/17) Reported Meds & Prescriptions Reported Meds & Active Scripts Active Reported Lantus Inj (Insulin Glargine) 1,000 Unit/10 Ml Vial 34 Units SQ HS Metformin (Metformin HCl) 500 Mg Tab 500 Mg PO DAILY With a meal Metformin (Metformin HCl) 1,000 Mg Tab 1,000 Mg PO DAILY With a meal [Insulin] [Cholesterol Med] Clonidine (Clonidine HCl) 0.3 Mg Tab 0.3 Mg PO TID Review of Systems Except as stated in HPI: all other systems reviewed are Neg Physical Exam Narrative GENERAL: 51yo F in mild distress. SKIN: Focused skin assessment warm/dry. HEAD: Atraumatic. Normocephalic. EYES: Pupils equal and round. No scleral icterus. No injection or drainage. ENT: No nasal bleeding or discharge. Mucous membranes pink and moist. NECK: Trachea midline. No JVD. CARDIOVASCULAR: Regular rate and rhythm. No murmur appreciated. RESPIRATORY: No accessory muscle use. Clear to auscultation. Breath sounds equal bilaterally. GASTROINTESTINAL: Abdomen soft, mild right flank ttp. No rebound tenderness or guarding. MUSCULOSKELETAL: No obvious deformities. No clubbing. No cyanosis. No edema. NEUROLOGICAL: Awake and alert. No obvious cranial nerve deficits. Motor grossly within normal limits. Normal speech. PSYCHIATRIC: Appropriate mood and affect; insight and judgment normal. Data Data Last Documented VS Vital Signs Date Time Temp Pulse Resp B/P (MAP) Pulse Ox O2 Delivery O2 Flow Rate FiO2 03/19/17 21:39 98 Room Air 03/19/17 21:27 98.8 90 20 181/74 (109) Orders Orders Electrocardiogram (03/19/17 ) Complete Blood Count With Diff (03/19/17 21:41) Comprehensive Metabolic Panel (03/19/17 21:41) Urinalysis - C+S If Indicated (03/19/17 21:41) Beta Hydroxybutyrate (Acetone) (03/19/17 21:41) Blood Gas Venous (Vbg) (03/19/17 21:44) Sodium Chlor 0.9% 1000 Ml Inj (Ns 1000 M (03/19/17 21:45) Insulin Human Regular Inj (Novolin R Inj (03/19/17 23:45) Blood Glucose (03/20/17 00:50) Urine Culture (03/19/17 23:55) Labs Laboratory Tests Test 03/19/17 21:50 03/19/17 22:00 03/19/17 23:55 Blood Gas Puncture Site FROM IV LOCK Blood Gas Patient Temperature 98.0 Venous Blood pH 7.39 Venous Blood Partial Pressure CO2 49 mmHg Venous Blood Partial Pressure O2 27 mmHg Venous Blood HCO3 29 mmol/L Venous Blood Oxygen Saturation 42 % Venous Blood Oxygen Content 6.3 Vol % Venous Blood Base Excess 4.7 mmol/L Oxygen Delivery Device ROOM AIR Blood Gas Inspired Oxygen 21 % White Blood Count 9.1 TH/MM3 Red Blood Count 4.69 MIL/MM3 Hemoglobin 10.6 GM/DL Hematocrit 33.9 % Mean Corpuscular Volume 72.3 FL Mean Corpuscular Hemoglobin 22.6 PG Mean Corpuscular Hemoglobin Concent 31.3 % Red Cell Distribution Width 17.5 % Platelet Count 328 TH/MM3 Mean Platelet Volume 8.9 FL Neutrophils (%) (Auto) 53.6 % Lymphocytes (%) (Auto) 35.1 % Monocytes (%) (Auto) 7.8 % Eosinophils (%) (Auto) 2.7 % Basophils (%) (Auto) 0.8 % Neutrophils # (Auto) 4.9 TH/MM3 Lymphocytes # (Auto) 3.2 TH/MM3 Monocytes # (Auto) 0.7 TH/MM3 Eosinophils # (Auto) 0.2 TH/MM3 Basophils # (Auto) 0.1 TH/MM3 CBC Comment DIFF FINAL Differential Comment Blood Urea Nitrogen 9 MG/DL Creatinine 1.17 MG/DL Random Glucose 420 MG/DL Total Protein 7.2 GM/DL Albumin 3.2 GM/DL Calcium Level 8.9 MG/DL Alkaline Phosphatase 78 U/L Aspartate Amino Transf (AST/SGOT) 17 U/L Alanine Aminotransferase (ALT/SGPT) 24 U/L Total Bilirubin 0.5 MG/DL Sodium Level 136 MEQ/L Potassium Level 3.6 MEQ/L Chloride Level 100 MEQ/L Carbon Dioxide Level 29.6 MEQ/L Anion Gap 6 MEQ/L Estimat Glomerular Filtration Rate 59 ML/MIN B-Hydroxybutyrate 0.07 MMOL/L Urine Color LIGHT-YELLOW Urine Turbidity CLEAR Urine pH 6.5 Urine Specific [place] 1.035 Urine Protein NEG mg/dL Urine Glucose (UA) 1000 mg/dL Urine Ketones NEG mg/dL Urine Occult Blood NEG Urine Nitrite NEG Urine Bilirubin NEG Urine Urobilinogen LESS THAN 2.0 MG/DL Urine Leukocyte Esterase LARGE Urine RBC 3 /hpf Urine WBC 7 /hpf Urine Squamous Epithelial Cells 4 /hpf Urine Bacteria MOD /hpf Microscopic Urinalysis Comment CULTURE INDICATED MDM Medical Decision Making Medical Screen Exam Complete: Yes Emergency Medical Condition: Yes Interpretation(s) EKG: NSR 88bpm. Normal axis. TWI V2. No ST segment elevation or depression. Differential Diagnosis Uncontrolled DM vs. UTI vs. DKA Narrative Course 51yo F with complaint of elevated blood glucose. Labs reviewed, no leukocytosis. H/H low at 10.6/33.9 but this is her baseline. Glucose elevated at 420. CO2 29.6. Normal anion gap. Creatinine mildly elevated at 1.17. Pt given NS IVF and regular insulin 8 units. Repeat glucose is 332. Pt reevaluated at bedside and feels better. UA showed large leukocyte. WBC 7. Pt is symptomatic. Will treat for UTI. Given first dose of macrobid here. Return precautions given. Diagnosis Primary Impression: UTI (urinary tract infection) Qualified Codes: N39.0 - Urinary tract infection, site not specified Additional Impression: DM (diabetes mellitus) Patient Instructions: General Instructions Departure Forms: Tests/Procedures Additional Instructions: Please follow up with your primary care physician in 3-7 days. Return to the ED if symptoms worsen. Med/Other Pt SpecificInfo: Prescription(s) given Scripts Nitrofurantoin Monohydrate Macrocrystals (Macrobid) 100 Mg Cap 100 MG PO BID for Infection for 5 Days, #10 CAP 0 Refills Prov: Candice Wise DO 03/20/17 Disposition: 01 DISCHARGE HOME Condition: Stable Candice Wise DO Mar 19, 2017 21:44
[2017-03-19] MEDS ORDERED: SODIUM CHLOR 0.9% 1000 ML INJ 1,000 ML IV ONE (21:45)
[2017-03-19] MEDS ORDERED: METF1000 PO (22:09)
[2017-03-19] MEDS ORDERED: METF500T PO (22:09)
[2017-03-19] MEDS ORDERED: LANTUS2P SQ (22:09)
[2017-03-19 23:24] LABS: AUTOMATED NEUTROPHIL # 4.9 TH/MM3 (1.8-7.7); BASOPHIL # 0.1 TH/MM3 (0-0.2); BASOPHIL % 0.8 % (0.0-2.0); EOSINOPHIL # 0.2 TH/MM3 (0-0.4); EOSINOPHIL % 2.7 % (0.0-4.0); HEMATOCRIT 33.9 % (35.0-46.0); HEMOGLOBIN 10.6 GM/DL (11.6-15.3); LYMPH % 35.1 % (9.0-44.0); LYMPHOCYTE # 3.2 TH/MM3 (1.0-4.8); MEAN CELL VOLUME 72.3 FL (80.0-100.0); MEAN CORPUSCULAR HEMOGLOBIN 22.6 PG (27.0-34.0); MEAN CORPUSCULAR HGB CONC 31.3 % (32.0-36.0); MEAN PLATELET VOLUME 8.9 FL (7.0-11.0); MONO % 7.8 % (0.0-8.0); MONOCYTE # 0.7 TH/MM3 (0-0.9); NEUT % 53.6 % (16.0-70.0); PLATELET COUNT 328 TH/MM3 (150-450); RED BLOOD COUNT 4.69 MIL/MM3 (4.00-5.30); RED CELL DISTRIBUTION WIDTH 17.5 % (11.6-17.2); WHITE BLOOD COUNT 9.1 TH/MM3 (4.0-11.0)
[2017-03-19 23:26] LABS: ALBUMIN 3.2 GM/DL (3.4-5.0); ALKALINE PHOSPHATASE 78 U/L (45-117); ALT (GPT) 24 U/L (10-53); AST (GOT) 17 U/L (15-37); BICARBONATE 29.6 MEQ/L (21.0-32.0); BLOOD UREA NITROGEN 9 MG/DL (7-18); CALCIUM 8.9 MG/DL (8.5-10.1); CHLORIDE 100 MEQ/L (98-107); CREATININE 1.17 MG/DL (0.50-1.00); GLOMERULAR FILTRATION RATE 59 ML/MIN (>89); SODIUM (NA) 136 MEQ/L (136-145); TOTAL BILIRUBIN ADULT 0.5 MG/DL (0.2-1.0); TOTAL PROTEIN 7.2 GM/DL (6.4-8.2)
[2017-03-19 23:28] LABS: GLUCOSE,RANDOM 420 MG/DL (74-106)
[2017-03-19] MEDS ORDERED: INSULIN HUMAN REGULAR 1,000 UNITS/10 ML VIAL SQ ONE (23:45)
[2017-03-20 01:43] LABS: BACTERIA, URINE MOD /hpf; BILIRUBIN, URINE NEG (NEG); BLOOD, URINE NEG (NEG); GLUCOSE,URINE 1000 mg/dL (NEG); KETONE, URINE NEG (NEG); NITRITE,URINE NEG (NEG); PH, URINE 6.5 (5.0-8.5); SQUAMOUS EPITHELIAL CELL URINE 4 /hpf (0-5); URINE COLOR LIGHT-YELLOW (YELLW/STRAW); URINE LEUKOCYTE ESTERASE LARGE (NEG)
[2017-03-20] MEDS ORDERED: NITROFURANTOIN MONOHYD MACROCR 100 MG CAP PO ONE (02:15)
[2017-03-20] MEDS ORDERED: MACR100C2 PO (02:15)
[2017-03-20 02:57] VITALS: BP 167/72
--- NOTE | 2017-03-20 21:41 | EKG ---
Date Performed: 03/19/2017 Time Performed: 21:52:13 PTAGE: 51 years EKG: Sinus rhythm NORMAL ECG PREVIOUS TRACING : 11/17/2016 02.30 Compared to prior tracing no significant change DOCTOR: Eddie Chang Interpretating Date/Time 03/20/2017 21:40:47
== END 2017-03-20 03:01 | disposition home or self-care (01) ==
LOC: NEPC 21:16
DX: N39.0 Urinary tract infection, site not specified (principal); B96.20 Unspecified Escherichia coli [E. coli] as the cause of diseases classified elsewhere; E11.65 Type 2 diabetes mellitus with hyperglycemia; I10 Essential (primary) hypertension; F41.9 Anxiety disorder, unspecified; J44.9 Chronic obstructive pulmonary disease, unspecified; F17.210 Nicotine dependence, cigarettes, uncomplicated; Z21 Asymptomatic human immunodeficiency virus [HIV] infection status; Z79.4 Long term (current) use of insulin
CPT/HCPCS: 80053; 81001; 82010; 82805; 85025; 87077; 87086; 87186; 93005; 96360; 96361; 96372; 99284; J1815; J7030

== ENCOUNTER 2017-04-07 12:41 | Emergency (ER) | payer MEDICAID ==
[~2017-04-07] VITALS: Ht 175.3 cm; Wt 131.8 kg
[~2017-04-07 12:41] MED LIST changes: -AMOX875T PO; -EMTR1TAB5 PO; +MACR100C2 PO; +METF1000 PO; -RITO100 PO; -[UNRECOGNIZED DRUG - CODE] PO
[2017-04-07 12:42] VITALS: BP 162/76; PULSE 89; RESP 20; TEMP 97.9; O2SAT 96
[2017-04-07] MEDS ORDERED: BENZ100 PO (13:42)
[2017-04-07] MEDS ORDERED: IBUP1TAB7 PO (13:42)
--- NOTE | 2017-04-07 13:43 | PD ---
HPI Chief Complaint: Cold / Flu Symptoms Time Seen by Provider: 13:32 Travel History International Travel<30 days: No Contact w/Intl Traveler<30days: No Traveled to known affect area: No History of Present Illness HPI 51-year-old female here with nasal congestion, sore throat, cough 3 days. Subjective fever. Symptom severity is moderate. No aggravating or alleviating factors. Her son has similar symptoms and was diagnosed with a URI. PFSH Past Medical History Asthma: Yes Anxiety: Yes Heart Rhythm Problems: No Cardiac Catheterization: Yes Cardiovascular Problems: Yes (HTN) High Cholesterol: No Congestive Heart Failure: No COPD: Yes Diabetes: Yes Patient Takes Glucophage: Yes Diminished Hearing: No Hypertension: Yes (not on meds x 2 months) Immune Disorder: Yes (HIV +) Respiratory: Yes Integumentary: Yes (S/P MRSA AFTER C SEC IN JAN 01) Myocardial Infarction: No ?: Not Menopausal: No : 11 Para: 10 : 1 Past Surgical History Section: Yes (X2) Coronary Artery Bypass Graft: No Gynecologic Surgery: Yes (HX OF MRSA FOLLOWING C SECTION 12/26/06) Family History Family Myocardial Infarction: Yes Social History Alcohol Use: No Tobacco Use: Yes Substance Use: No Allergies-Medications (Allergen,Severity, Reaction): Coded Allergies: acetaminophen (Unverified Allergy, Severe, N/V-HIVES, 04/07/17) morphine (Unverified Allergy, Severe, 04/07/17) oxycodone (Unverified Allergy, Severe, N/V-HIVES, 04/07/17) Reported Meds & Prescriptions Reported Meds & Active Scripts Active Ibuprofen 800 Mg Tab 800 Mg PO Q6HR PRN Tessalon Perles (Benzonatate) 100 Mg Cap 200 Mg PO TID PRN Reported Lantus Inj (Insulin Glargine) 1,000 Unit/10 Ml Vial 34 Units SQ HS Metformin (Metformin HCl) 1,000 Mg Tab 1,000 Mg PO DAILY With a meal [Cholesterol Med] Clonidine (Clonidine HCl) 0.3 Mg Tab 0.3 Mg PO TID Review of Systems Except as stated in HPI: all other systems reviewed are Neg General / Constitutional: Positive: Fever Eyes: No: Visual changes HENT: Positive: Sore Throat, Congestion Cardiovascular: No: Chest Pain or Discomfort Respiratory: Positive: Cough Gastrointestinal: No: Abdominal Pain Genitourinary: No: Dysuria Musculoskeletal: No: Pain Physical Exam Narrative GENERAL: Alert female well-appearing. SKIN: Warm and dry. No rash. HEAD: Normocephalic. EYES: No injection or drainage. NOSE: Clear nasal discharge. THROAT: Mild pharyngeal erythema without tonsillar hypertrophy or exudate. Uvula is midline. Airway is patent. NECK: Supple, trachea midline. No JVD or lymphadenopathy. CARDIOVASCULAR: Regular rate and rhythm RESPIRATORY: Breath sounds equal bilaterally. No accessory muscle use. Data Data Last Documented VS Vital Signs Date Time Temp Pulse Resp B/P (MAP) Pulse Ox O2 Delivery O2 Flow Rate FiO2 04/07/17 12:42 97.9 89 20 162/76 (104) 96 Room Air MDM Medical Decision Making Medical Screen Exam Complete: Yes Emergency Medical Condition: Yes Differential Diagnosis URI, bronchitis, influenza Narrative Course 51-year-old female here with mild URI-like symptoms. She is nontoxic appearing. Her vital signs are stable. She will be treated with Tessalon Perles and ibuprofen. Diagnosis Primary Impression: URI (upper respiratory infection) Qualified Codes: J06.9 - Acute upper respiratory infection, unspecified; B97.89 - Other viral agents as the cause of diseases classified elsewhere Referrals: Primary Care Physician Additional Instructions: Rest and stay well hydrated. Ibuprofen as needed for fever and pain. Tessalon Perles for cough Scripts Ibuprofen (Ibuprofen) 800 Mg Tab 800 MG PO Q6HR Y for PAIN, #40 TAB 0 Refills Prov: Anupama Lee 04/07/17 Benzonatate (Tessalon Perles) 100 Mg Cap 200 MG PO TID Y for COUGH, #12 CAP 0 Refills Prov: Anupama Lee 04/07/17 Disposition: 01 DISCHARGE HOME Condition: Stable Anupama Lee Apr 07, 2017 13:43
== END 2017-04-07 13:57 | disposition home or self-care (01) ==
LOC: NEPK 12:41
DX: J06.9 Acute upper respiratory infection, unspecified (principal); E11.9 Type 2 diabetes mellitus without complications; I10 Essential (primary) hypertension; J44.9 Chronic obstructive pulmonary disease, unspecified; F41.9 Anxiety disorder, unspecified; Z72.0 Tobacco use
CPT/HCPCS: 99283

== ENCOUNTER 2017-04-12 18:19 | Emergency (ER) | payer MEDICAID ==
[~2017-04-12 18:19] MED LIST changes: +BENZ100 PO; +IBUP1TAB7 PO
[2017-04-12 18:21] VITALS: BP 183/91; PULSE 77; RESP 18; TEMP 98.6; O2SAT 98
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
[2017-04-12 20:08] LABS: BACTERIA, URINE MANY /hpf; BILIRUBIN, URINE NEG (NEG); BLOOD, URINE NEG (NEG); GLUCOSE,URINE 1000 mg/dL (NEG); KETONE, URINE TRACE mg/dL (NEG); MUCUS URINE FEW /lpf (OCC); NITRITE,URINE NEG (NEG); SQUAMOUS EPITHELIAL CELL URINE 14 /hpf (0-5); URINE COLOR YELLOW (YELLW/STRAW); URINE LEUKOCYTE ESTERASE MOD (NEG)
== END 2017-04-12 20:08 | disposition left against medical advice (07) ==
LOC: NEPK 18:19
DX: M54.9 Dorsalgia, unspecified (principal); G89.29 Other chronic pain; I10 Essential (primary) hypertension; E11.9 Type 2 diabetes mellitus without complications; Z72.0 Tobacco use; Z79.4 Long term (current) use of insulin
CPT/HCPCS: 81001; 87077; 87086; 87186; 99281

== ENCOUNTER 2017-05-19 11:30 | Emergency (ER) | payer MEDICAID ==
[~2017-05-19] VITALS: Ht 175.3 cm; Wt 100.0 kg
[~2017-05-19 11:30] MED LIST changes: -INSULIN; -MACR100C2 PO; -METF500T PO
[2017-05-19 11:32] VITALS: BP 151/66; PULSE 82; RESP 16; TEMP 99; O2SAT 100
[2017-05-19 12:50] LABS: AUTOMATED NEUTROPHIL # 8.3 TH/MM3 (1.8-7.7); BASOPHIL # 0.1 TH/MM3 (0-0.2); BASOPHIL % 1.1 % (0.0-2.0); EOSINOPHIL # 0.1 TH/MM3 (0-0.4); HEMATOCRIT 37.3 % (35.0-46.0); HEMOGLOBIN 11.7 GM/DL (11.6-15.3); LYMPH % 20.7 % (9.0-44.0); LYMPHOCYTE # 2.5 TH/MM3 (1.0-4.8); MEAN CELL VOLUME 72.1 FL (80.0-100.0); MEAN CORPUSCULAR HEMOGLOBIN 22.5 PG (27.0-34.0); MEAN CORPUSCULAR HGB CONC 31.3 % (32.0-36.0); MEAN PLATELET VOLUME 8.5 FL (7.0-11.0); MONOCYTE # 0.8 TH/MM3 (0-0.9); NEUT % 70.2 % (16.0-70.0); PLATELET COUNT 386 TH/MM3 (150-450); RED BLOOD COUNT 5.17 MIL/MM3 (4.00-5.30); RED CELL DISTRIBUTION WIDTH 17.6 % (11.6-17.2); WHITE BLOOD COUNT 11.9 TH/MM3 (4.0-11.0)
--- NOTE | 2017-05-19 12:52 | PD ---
Physical Exam Date Seen by Provider: May 19, 2017 Narrative This patient presents with vaginal irritation and swelling. She is HIV positive and is a diabetic. The most likely etiology for her symptoms is a yeast infection. Data Data Last Documented VS Vital Signs Date Time Temp Pulse Resp B/P (MAP) Pulse Ox O2 Delivery O2 Flow Rate FiO2 05/19/17 11:32 99.0 82 16 151/66 (94) 100 Room Air Orders Orders Complete Blood Count With Diff (05/19/17 12:00) Basic Metabolic Panel (Bmp) (05/19/17 12:00) Urinalysis - C+S If Indicated (05/19/17 12:00) Ed Urine Pregnancytest Poc (05/19/17 12:00) Labs Laboratory Tests Test 05/19/17 12:35 MDM Supervised Visit with DOLORES: Yes Narrative Course I, Dr. Fagan, have reviewed the advance practice practitioner's documentation and am in agreement, met with the patient face to face, made the diagnosis, and the medical decision making was done by me. *My assessment and Findings: The patient is lying on the stretcher playing a game on her cell phone in no distress. Please see Lizbeth Wright NP's note for results of laboratory and radiographic evaluation, ED course, final diagnosis and disposition Kasey Fagan MD May 19, 2017 12:52
[2017-05-19] MEDS ORDERED: FLUCONAZOLE 100 MG TAB PO ONE (13:00)
[2017-05-19 13:11] LABS: BACTERIA, URINE MANY /hpf; BILIRUBIN, URINE NEG (NEG); BLOOD, URINE NEG (NEG); GLUCOSE,URINE 1000 mg/dL (NEG); KETONE, URINE NEG (NEG); NITRITE,URINE POS (NEG); SQUAMOUS EPITHELIAL CELL URINE 1 /hpf (0-5); TRANSITIONAL EPI CELLS, URINE <1 /hpf; URINE COLOR YELLOW (YELLW/STRAW); URINE LEUKOCYTE ESTERASE MOD (NEG)
[2017-05-19 13:19] LABS: BICARBONATE 30.1 MEQ/L (21.0-32.0); CALCIUM 8.8 MG/DL (8.5-10.1); CREATININE 0.99 MG/DL (0.50-1.00)
[2017-05-19] MEDS ORDERED: DIFL150T PO (13:38)
--- NOTE | 2017-05-19 13:40 | PD ---
HPI Chief Complaint: Abnormal Results Time Seen by Provider: 12:14 Travel History International Travel<30 days: No Contact w/Intl Traveler<30days: No Traveled to known affect area: No History of Present Illness HPI 51-year-old female presents to the emergency department with complaint of her "vagina hurts" and it has been irritated for a while now with severe irritation for the past couple days. Reports nausea without vomiting. Denies fevers. Said she felt weak and dizzy yesterday, but not today. Reports diarrhea since yesterday at 1 PM. Denies abnormal vaginal discharge. Says that her external vagina is swollen and hurts. Denies dysuria. Denies abdominal pain. Has tried using a and D ointment with no relief of symptoms. Rates vagina pain/ irritation 01/04. Describes it as an irritating and itching sensation. Aggravated by having sex. No known relieving factors. Allergies to morphine sulfate. Primary care provider is Dr. Adams. History of hypertension, diabetes mellitus, asthma, HIV. Says her blood sugars are uncontrolled. She does take insulin. Has no other medical complaints. No other modifying factors or associated signs and symptoms. PFSH Past Medical History Asthma: Yes Anxiety: Yes Heart Rhythm Problems: No Cardiac Catheterization: Yes Cardiovascular Problems: Yes (HTN) High Cholesterol: No Congestive Heart Failure: No COPD: Yes Diabetes: Yes Patient Takes Glucophage: Yes Diminished Hearing: No Heparin Induced Thrombocytopen: No Hypertension: Yes Immune Disorder: Yes (HIV +) Respiratory: Yes Integumentary: Yes (S/P MRSA AFTER C SEC IN JAN 01) Myocardial Infarction: No ?: Not Menopausal: No : 11 Para: 10 : 1 Past Surgical History Section: Yes (X2) Coronary Artery Bypass Graft: No Gynecologic Surgery: Yes (HX OF MRSA FOLLOWING C SECTION 12/26/06) Family History Family Myocardial Infarction: Yes Social History Alcohol Use: No Tobacco Use: Yes Substance Use: No Allergies-Medications (Allergen,Severity, Reaction): Coded Allergies: acetaminophen (Unverified Allergy, Severe, N/V-HIVES, 04/07/17) morphine (Unverified Allergy, Severe, 04/07/17) oxycodone (Unverified Allergy, Severe, N/V-HIVES, 04/07/17) Reported Meds & Prescriptions Reported Meds & Active Scripts Active Keflex (Cephalexin) 500 Mg Cap 500 Mg PO Q12H 7 Days Diflucan (Fluconazole) 150 Mg Tab 150 Mg PO ONCE TAKE ONE PILL IN ONE WEEK IF SYMPTOMS PERSIST; TAKE ANOTHER PILL IN 2 WEEKS IF SYMPTOMS PERSIST Reported Lantus Inj (Insulin Glargine) 1,000 Unit/10 Ml Vial 34 Units SQ HS Metformin (Metformin HCl) 1,000 Mg Tab 1,000 Mg PO DAILY With a meal Clonidine (Clonidine HCl) 0.3 Mg Tab 0.3 Mg PO TID Review of Systems Except as stated in HPI: all other systems reviewed are Neg Physical Exam Narrative GENERAL: Well-nourished, well-developed black female patient, in no acute distress; afebrile, nontoxic-appearing SKIN: Warm and dry. HEAD: Atraumatic. Normocephalic. EYES: Pupils equal and round. No scleral icterus. No injection or drainage. ENT: Mucous membranes pink and moist. NECK: Trachea midline. No lymphadenopathy. CARDIOVASCULAR: Regular rate and rhythm. RESPIRATORY: No accessory muscle use. GASTROINTESTINAL: Obese. Abdomen soft, non-tender, nondistended. Bilateral pelvic region nontender to palpation. Hepatic and splenic margins not palpable. No guarding, rigidity, rebound tenderness. PELVIC: Exam done in the presence of a nurse. Patient refuses speculum exam. External visualization of the vagina: Vaginal majora is swollen and there is a heavy amount of white coating consistent with vaginal yeast to the external vagina and to the entrance of the vagina. BACK: No CVA tenderness. MUSCULOSKELETAL: No obvious deformities. No clubbing. No cyanosis. No edema. NEUROLOGICAL: Awake and alert. No obvious cranial nerve deficits. Motor grossly within normal limits. Normal speech. PSYCHIATRIC: Appropriate mood and affect; insight and judgment normal. Data Data Last Documented VS Vital Signs Date Time Temp Pulse Resp B/P (MAP) Pulse Ox O2 Delivery O2 Flow Rate FiO2 05/19/17 14:46 05/19/17 11:32 99.0 82 16 100 Room Air Orders Orders Complete Blood Count With Diff (05/19/17 12:00) Basic Metabolic Panel (Bmp) (05/19/17 12:00) Urinalysis - C+S If Indicated (05/19/17 12:00) Ed Urine Pregnancytest Poc (05/19/17 12:00) Fluconazole (Diflucan) (05/19/17 13:00) Wet Prep Profile (05/19/17 12:55) Urine Culture (05/19/17 12:35) Ed Discharge Order (05/19/17 14:09) Labs Laboratory Tests Test 05/19/17 12:35 05/19/17 13:00 White Blood Count 11.9 TH/MM3 Red Blood Count 5.17 MIL/MM3 Hemoglobin 11.7 GM/DL Hematocrit 37.3 % Mean Corpuscular Volume 72.1 FL Mean Corpuscular Hemoglobin 22.5 PG Mean Corpuscular Hemoglobin Concent 31.3 % Red Cell Distribution Width 17.6 % Platelet Count 386 TH/MM3 Mean Platelet Volume 8.5 FL Neutrophils (%) (Auto) 70.2 % Lymphocytes (%) (Auto) 20.7 % Monocytes (%) (Auto) 7.0 % Eosinophils (%) (Auto) 1.0 % Basophils (%) (Auto) 1.1 % Neutrophils # (Auto) 8.3 TH/MM3 Lymphocytes # (Auto) 2.5 TH/MM3 Monocytes # (Auto) 0.8 TH/MM3 Eosinophils # (Auto) 0.1 TH/MM3 Basophils # (Auto) 0.1 TH/MM3 CBC Comment DIFF FINAL Differential Comment Urine Color YELLOW Urine Turbidity CLEAR Urine pH 7.0 Urine Specific [place] 1.033 Urine Protein NEG mg/dL Urine Glucose (UA) 1000 mg/dL Urine Ketones NEG mg/dL Urine Occult Blood NEG Urine Nitrite POS Urine Bilirubin NEG Urine Urobilinogen LESS THAN 2.0 MG/DL Urine Leukocyte Esterase MOD Urine RBC 3 /hpf Urine WBC 3 /hpf Urine Squamous Epithelial Cells 1 /hpf Urine Transitional Epithelial Cells <1 /hpf Urine Bacteria MANY /hpf Microscopic Urinalysis Comment CULTURE INDICATED Blood Urea Nitrogen 5 MG/DL Creatinine 0.99 MG/DL Random Glucose 408 MG/DL Calcium Level 8.8 MG/DL Sodium Level 135 MEQ/L Potassium Level 3.3 MEQ/L Chloride Level 97 MEQ/L Carbon Dioxide Level 30.1 MEQ/L Anion Gap 8 MEQ/L Estimat Glomerular Filtration Rate 72 ML/MIN Clue Cells (Wet Prep) NONE SEEN Vaginal Trichomonas (Wet Prep) NONE SEEN Vaginal Yeast (Wet Prep) NONE SEEN MDM Medical Decision Making Medical Screen Exam Complete: Yes Emergency Medical Condition: Yes Medical Record Reviewed: Yes Differential Diagnosis Vaginitis, bacterial vaginosis, Narrative Course 51-year-old female with history of HIV and diabetes mellitus, physical exam consistent with vaginitis. Patient's blood sugars are uncontrolled. She is insulin-dependent. I discussed the patient with my attending physician and she agrees with my plan of care. CBC, BMP, wet prep ordered. 1337: CBC unremarkable. Serum glucose 408; Potassium 3.3, otherwise BMP unremarkable. I discussed labs with Dr. Fagan and she agrees the patient can follow-up outpatient for blood sugar management. This was discussed with the patient and she agrees to follow-up. 1402: Wet prep negative for vaginal yeast, bacterial vaginosis or trichomonas. Urinalysis with signs of infection. Diflucan administered in the ER. Diflucan and Keflex prescribed for home. Instructed patient to follow-up with pharmacy consultant. Instructed patient to follow up with primary care provider. Patient verbalizes understanding and agreement with treatment plan. Patient is medically cleared and stable for discharge. Discussed reasons to return to the emergency department. Patient agrees with treatment plan. The patients vital signs are stable and the patient is stable for outpatient follow-up and treatment. Patient discharged home, stable and in no acute distress. Diagnosis Primary Impression: Vaginitis Qualified Codes: N76.0 - Acute vaginitis Additional Impressions: UTI (urinary tract infection) Qualified Codes: N39.0 - Urinary tract infection, site not specified High blood sugar Referrals: Telephone Cleaner Primary Care Physician Patient Instructions: Diabetic Hyperglycemia (ED), General Instructions, Urinary Tract Infection in Women (ED), Vaginitis (ED) Additional Instructions: Diflucan as prescribed; repeat dose in 1 week if symptoms persist; you did receive her first dose in the emergency department [id number] Monistat as directed and as needed for vaginal yeast infection Take antibiotics as prescribed and complete full course Drink plenty of fluids Maintain good personal hygiene Follow-up with pharmacy consultant Follow-up with primary care provider in regards to high blood sugars and getting her diabetes under control Return to the emergency department immediately for worsening of symptoms Med/Other Pt SpecificInfo: Prescription(s) given Scripts Cephalexin (Keflex) 500 Mg Cap 500 MG PO Q12H for Infection for 7 Days, #14 CAP 0 Refills Prov: Lizbeth Wright 05/19/17 Fluconazole (Diflucan) 150 Mg Tab 150 MG PO ONCE for Infection, #2 TAB 0 Refills TAKE ONE PILL IN ONE WEEK IF SYMPTOMS PERSIST; TAKE ANOTHER PILL IN 2 WEEKS IF SYMPTOMS PERSIST Prov: Lizbeth Wright 05/19/17 Disposition: 01 DISCHARGE HOME Condition: Stable Lizbeth Wright May 19, 2017 13:40
[2017-05-19] MEDS ORDERED: CEPH-460 PO (14:07)
== END 2017-05-19 15:03 | disposition home or self-care (01) ==
LOC: NEPD 13:15
DX: N76.0 Acute vaginitis (principal); N39.0 Urinary tract infection, site not specified; E11.65 Type 2 diabetes mellitus with hyperglycemia; I10 Essential (primary) hypertension; Z72.0 Tobacco use; Z79.4 Long term (current) use of insulin
CPT/HCPCS: 80048; 81001; 85025; 87077; 87086; 87186; 87210; 99284

== ENCOUNTER 2017-05-25 06:30 | Inpatient (IN) | payer MEDICAID ==
[~2017-05-25] VITALS: Ht 180.3 cm; Wt 129.1 kg
[2017-05-25] VITALS (10 sets, daily range): BP systolic 128–185; BP diastolic 70–85; PULSE 43–86; RESP 14–20; TEMP 97.7–98.9; O2SAT 96–100
[~2017-05-25 06:30] MED LIST changes: -BENZ100 PO; +CEPH-460 PO; -CHOLESTEROL MED; +DIFL150T PO; -IBUP1TAB7 PO
[2017-05-25] MEDS ORDERED: SODIUM CHLOR 0.9% 1000 ML INJ 1,000 ML IV ONE (07:08)
--- NOTE | 2017-05-25 07:11 | PD ---
HPI Chief Complaint: Headache Time Seen by Provider: 07:00 Travel History International Travel<30 days: No Contact w/Intl Traveler<30days: No Traveled to known affect area: No History of Present Illness HPI Patient is a 51-year-old HIV-positive female presents to the emergency department for evaluation of headache, patient states the headache is severe and woke her up from a sound sleep in the middle the night. States she has never had a headache like this before. She states the headache starts in front and wraps around her entire head like a vice. States it is not going down her neck. She states she has been taking her antiretrovirals, denies any fevers. States the headache is been present for the past few hours. PFSH Past Medical History Asthma: Yes Anxiety: Yes Heart Rhythm Problems: No Cardiac Catheterization: Yes Cardiovascular Problems: Yes (HTN) High Cholesterol: No Congestive Heart Failure: No COPD: Yes Diabetes: Yes Patient Takes Glucophage: Yes (05/24/20171999) Diminished Hearing: No Heparin Induced Thrombocytopen: No Hypertension: Yes Immune Disorder: Yes (HIV +) Respiratory: Yes Integumentary: Yes (S/P MRSA AFTER C SEC IN JAN 01) Myocardial Infarction: No Tetanus Vaccination: Unknown Influenza Vaccination: No ?: Not LMP: menapause Menopausal: No : 11 Para: 10 : 1 Past Surgical History Section: Yes (X2) Coronary Artery Bypass Graft: No Gynecologic Surgery: Yes (HX OF MRSA FOLLOWING C SECTION 12/26/06) Family History Family Myocardial Infarction: Yes Social History Alcohol Use: No Tobacco Use: Yes Substance Use: No Allergies-Medications (Allergen,Severity, Reaction): Coded Allergies: morphine (Unverified Allergy, Severe, 05/25/17) oxycodone (Unverified Allergy, Severe, N/V-HIVES, 05/25/17) Reported Meds & Prescriptions Reported Meds & Active Scripts Active Keflex (Cephalexin) 500 Mg Cap 500 Mg PO Q12H 7 Days Reported Lantus Inj (Insulin Glargine) 1,000 Unit/10 Ml Vial 34 Units SQ HS Metformin (Metformin HCl) 1,000 Mg Tab 1,000 Mg PO DAILY With a meal Clonidine (Clonidine HCl) 0.3 Mg Tab 0.3 Mg PO TID Review of Systems Except as stated in HPI: all other systems reviewed are Neg Physical Exam Narrative GENERAL: Well-developed morbidly obese female, appears fairly uncomfortable and crying.. SKIN: Focused skin assessment warm/dry. HEAD: Atraumatic. Normocephalic. EYES: Pupils equal and round reactive to light and accommodation probably 3 mm. No scleral icterus. No injection or drainage. ENT: No nasal bleeding or discharge. Mucous membranes pink and moist. NECK: Trachea midline. No JVD. CARDIOVASCULAR: Regular rate and rhythm. No murmur appreciated. RESPIRATORY: No accessory muscle use. Clear to auscultation. Breath sounds equal bilaterally. GASTROINTESTINAL: Abdomen soft, non-tender, nondistended. Hepatic and splenic margins not palpable. MUSCULOSKELETAL: No obvious deformities. No clubbing. No cyanosis. No edema. NEUROLOGICAL: Awake and alert. Cranial nerves II through XII grossly intact and nonfocal, 5 out of 5 strength in all 4 extremities, cerebellar testing negative. PSYCHIATRIC: Appropriate mood and affect; insight and judgment normal. Data Data Last Documented VS Vital Signs Date Time Temp Pulse Resp B/P (MAP) Pulse Ox O2 Delivery O2 Flow Rate FiO2 05/25/17 12:00 97.7 86 16 133/82 (99) 98 Room Air Orders Orders Complete Blood Count With Diff (05/25/17 07:08) Comprehensive Metabolic Panel (05/25/17 07:08) [place] Sedimentation Rate (05/25/17 07:08) C-Reactive Protein (Crp) (05/25/17 07:08) Prothrombin Time / Inr (Pt) (05/25/17 07:08) Act Partial Throm Time (Ptt) (05/25/17 07:08) Csf Cell Count + Differential (05/25/17 07:08) Glucose, Csf (05/25/17 07:08) Total Protein, Csf (05/25/17 07:08) Csf Cryptococcus Antigen (05/25/17 07:08) Blood Culture (05/25/17 07:08) Ct Brain W/O Iv Contrast(Rout) (05/25/17 07:08) Ecg Monitoring (05/25/17 07:08) Iv Access Insert/Monitor (05/25/17 07:08) Oximetry (05/25/17 07:08) Sodium Chloride 0.9% Flush (Ns Flush) (05/25/17 07:15) Ketorolac Inj (Toradol Inj) (05/25/17 07:15) Diphenhydramine Inj (Benadryl Inj) (05/25/17 07:15) Metoclopramide Inj (Reglan Inj) (05/25/17 07:15) Sodium Chlor 0.9% 1000 Ml Inj (Ns 1000 M (05/25/17 07:08) Lumbar Puncture (05/25/17 ) Vital Signs (Adult) .On admission (05/25/17 07:08) Notify Radiology (05/25/17 07:08) Vital Signs (Adult) .As directed (05/25/17 10:35) Activity Bed Rest (05/25/17 10:35) Notify Radiology (05/25/17 10:35) ^ Encourage Fluids (05/25/17 10:35) Anticoagulant Alert (05/25/17 10:35) Csf Culture And Gram Stain (05/25/17 10:51) Hsv Dna Pcr Csf (05/25/17 12:12) Ceftriaxone Inj (Rocephin Inj) (05/25/17 12:15) Vancomycin Inj (Vancomycin Inj) (05/25/17 12:15) Acyclovir Inj (Zovirax Inj) (05/25/17 12:15) Admit Order (Ed Use Only) (05/25/17 ) Isolation 08,20 (05/25/17 12:52) Labs Laboratory Tests Test 05/25/17 07:10 05/25/17 10:00 White Blood Count 9.2 TH/MM3 Red Blood Count 4.85 MIL/MM3 Hemoglobin 11.0 GM/DL Hematocrit 34.9 % Mean Corpuscular Volume 71.9 FL Mean Corpuscular Hemoglobin 22.7 PG Mean Corpuscular Hemoglobin Concent 31.6 % Red Cell Distribution Width 18.3 % Platelet Count 364 TH/MM3 Mean Platelet Volume 8.6 FL Neutrophils (%) (Auto) 57.6 % Lymphocytes (%) (Auto) 30.3 % Monocytes (%) (Auto) 9.3 % Eosinophils (%) (Auto) 1.9 % Basophils (%) (Auto) 0.9 % Neutrophils # (Auto) 5.3 TH/MM3 Lymphocytes # (Auto) 2.8 TH/MM3 Monocytes # (Auto) 0.9 TH/MM3 Eosinophils # (Auto) 0.2 TH/MM3 Basophils # (Auto) 0.1 TH/MM3 CBC Comment DIFF FINAL Differential Comment Erythrocyte Sedimentation Rate 40 mm/hr Prothrombin Time 9.9 SEC Prothromb Time International Ratio 1.0 RATIO Activated Partial Thromboplast Time 22.6 SEC Blood Urea Nitrogen 9 MG/DL Creatinine 0.87 MG/DL Random Glucose 323 MG/DL Total Protein 7.0 GM/DL Albumin 2.9 GM/DL Calcium Level 8.4 MG/DL Alkaline Phosphatase 75 U/L Aspartate Amino Transf (AST/SGOT) 21 U/L Alanine Aminotransferase (ALT/SGPT) 17 U/L Total Bilirubin 1.0 MG/DL Sodium Level 137 MEQ/L Potassium Level 3.9 MEQ/L Chloride Level 102 MEQ/L Carbon Dioxide Level 29.4 MEQ/L Anion Gap 6 MEQ/L Estimat Glomerular Filtration Rate 83 ML/MIN C-Reactive Protein 1.38 MG/DL CSF Volume (Tube 1) 3.0 ML CSF Supernatant Color (tube 1) CLEAR CSF Gross Blood (Tube 1) TRACE CSF Volume (Tube 2) 1.0 ML CSF Supernatant Color (tube 2) CLEAR CSF Gross Blood (Tube 2) 3+ CSF Volume (Tube 3) 4.0 ML CSF Supernatant Color (tube 3) CLEAR CSF Gross Blood (Tube 3) 1+ CSF WBC (Tube 3) 5 /MM3 CSF RBC (Tube 3) 105 /MM3 CSF Neutrophils 5 % CSF Lymphocytes 85 % CSF Monocytes 9 % CSF Basophils 1 % CSF Differential Comment CSF Glucose 158 MG/DL CSF Total Protein 42.9 MG/DL MDM Medical Decision Making Medical Screen Exam Complete: Yes Emergency Medical Condition: Yes Differential Diagnosis Headache, subarachnoid hemorrhage, infectious headache, meningitis, encephalitis , Narrative Course Patient roomed in the emergency department, her last CD4 count here was in November 2015 it was 221. She is unsure as to a more recent CD4 count. Patient was given Benadryl Reglan, still having significant headache after medication, I recommended given her history and that she never had headache before and LP, she is agreeable after discussion with benefits competitions and alternatives. Her LP was performed by interventional radiology he did have some blood mixed white blood cells, her systemic blood sugar was 330 but the glucose and her CSF was only 150. She does not have any meningeal signs but with her history of HIV I think that we need to follow her cultures until negative, she was given vancomycin and Rocephin and acyclovir. Discussed with the residents for admission Diagnosis Primary Impression: Intractable headache Admitting Information Admitting Physician Requests: Observation Condition: Stable Kevin Dixon MD May 25, 2017 07:11
[2017-05-25] MEDS ORDERED: METOCLOPRAMIDE HCL 10 MG/2 ML VIAL IVP ONE (07:15)
[2017-05-25] MEDS ORDERED: KETOROLAC TROMETHAMINE 30 MG/ML (IVP) VIAL IVP ONE (07:15)
[2017-05-25] MEDS ORDERED: diphenhydrAMINE HCL 50 MG/ML VIAL IVP ONE (07:15)
[2017-05-25] MEDS: SODIUM CHLORIDE 0.9% FLUSH 10 ML FLUSH IVF PRN ×2 (07:23→12:27)
[2017-05-25 07:48] LABS: AUTOMATED NEUTROPHIL # 5.3 TH/MM3 (1.8-7.7); BASOPHIL # 0.1 TH/MM3 (0-0.2); BASOPHIL % 0.9 % (0.0-2.0); EOSINOPHIL # 0.2 TH/MM3 (0-0.4); EOSINOPHIL % 1.9 % (0.0-4.0); HEMATOCRIT 34.9 % (35.0-46.0); LYMPH % 30.3 % (9.0-44.0); LYMPHOCYTE # 2.8 TH/MM3 (1.0-4.8); MEAN CELL VOLUME 71.9 FL (80.0-100.0); MEAN CORPUSCULAR HEMOGLOBIN 22.7 PG (27.0-34.0); MEAN CORPUSCULAR HGB CONC 31.6 % (32.0-36.0); MEAN PLATELET VOLUME 8.6 FL (7.0-11.0); MONO % 9.3 % (0.0-8.0); MONOCYTE # 0.9 TH/MM3 (0-0.9); NEUT % 57.6 % (16.0-70.0); PLATELET COUNT 364 TH/MM3 (150-450); RED BLOOD COUNT 4.85 MIL/MM3 (4.00-5.30); RED CELL DISTRIBUTION WIDTH 18.3 % (11.6-17.2); WHITE BLOOD COUNT 9.2 TH/MM3 (4.0-11.0)
[2017-05-25 07:57] LABS: PROTHROMBIN TIME - PATIENT 9.9 SEC (9.8-11.6)
[2017-05-25 08:10] LABS: ALKALINE PHOSPHATASE 75 U/L (45-117)
--- NOTE | 2017-05-25 08:11 | RADRPT ---
EXAM DATE/TIME: 05/25/2017 07:54 [facility] COMPARISON: CT BRAIN W/O CONTRAST, June 19, 2009, 17:15. INDICATIONS : Cephalgia. RADIATION DOSE: 39.90 CTDIvol (mGy) MEDICAL HISTORY : Chronic obstructive pulmonary disease. Hypertension. SURGICAL HISTORY : None. ENCOUNTER: Initial ACUITY: 1 day PAIN SCALE: 8/10 LOCATION: Bilateral cranial TECHNIQUE: Multiple contiguous axial images were obtained of the head. Using automated exposure control and adj ustment of the mA and/or kV according to patient size, radiation dose was kept as low as reasonably a chievable to obtain optimal diagnostic quality images. DICOM format image data is available electro nically for review and comparison. FINDINGS: CEREBRUM: The ventricles are normal for age. No evidence of midline shift, mass lesion, hemorrhage or acute in farction. No extra-axial fluid collections are seen. POSTERIOR FOSSA: The cerebellum and brainstem are intact. The 4th ventricle is midline. The cerebellopontine angle i s unremarkable. EXTRACRANIAL: The visualized portion of the orbits is intact. SKULL: The calvaria is intact. No evidence of skull fracture. CONCLUSION: Negative noncontrast CT Kashif Mon MD on May 25, 2017 at 8:10 Board Certified Radiologist. This report was verified electronically.
[2017-05-25 08:17] LABS: ALBUMIN 2.9 GM/DL (3.4-5.0); ALT (GPT) 17 U/L (10-53); AST (GOT) 21 U/L (15-37); BICARBONATE 29.4 MEQ/L (21.0-32.0); BLOOD UREA NITROGEN 9 MG/DL (7-18); C-REACTIVE PROTEIN 1.38 MG/DL (0.00-0.30); CALCIUM 8.4 MG/DL (8.5-10.1); CHLORIDE 102 MEQ/L (98-107); CREATININE 0.87 MG/DL (0.50-1.00); GLOMERULAR FILTRATION RATE 83 ML/MIN (>89); GLUCOSE,RANDOM 323 MG/DL (74-106); SODIUM (NA) 137 MEQ/L (136-145)
--- NOTE | 2017-05-25 10:37 | PD.RAD ---
Post Procedure Progress Note Pre Procedure Diagnosis: (1) Cephalalgia Post Procedure Diagnosis: (1) Cephalalgia Procedure Date: May 25, 2017 Supervising Radiologist: Roberto Yao Proceduralist/Assist: Art Castillo, RT(R), Alissa Johnson RT(R) Anesthesia: Local Plan of Activity Patient to Unit: Nursing Unit Patient Condition: Good See PACS Report for procedural detail/treatment Spinal Procedure Lumbar Puncture L3-L4 Fluid Removal (CCs): 8 Fluid Description: Roberto Pizarro MD May 25, 2017 10:37
[2017-05-25 11:06] LABS: TOTAL PROTEIN,CSF 42.9 MG/DL (15.0-45.0)
--- NOTE | 2017-05-25 11:11 | RADRPT ---
EXAM DATE/TIME: 05/25/2017 09:44 [facility] COMPARISON: No previous studies available for comparison. INDICATIONS : Patient presents with headache in need of lumbar puncture for evaluation. MEDICAL HISTORY : Asthma Anxiety HTN COPD Diabetes HIV SURGICAL HISTORY : ENCOUNTER: Initial ACUITY: 1 day PAIN SCORE: 10/10 LOCATION: Head LUMBAR PUNCTURE TIME: 1000 hours FLUORO TIME: 1.1 minutes IMAGE SERIES: 2 ACCESS LEVEL: L3-4 FLUID: 8 cc of clear CSF was collected and sent to the laboratory for analysis. PROCEDURE : 1. Fluoroscopic guided lumbar puncture. The risks, benefits and alternatives to the procedure were explained and verbal and written consent w as obtained. The site was prepped in sterile fashion. Full sterile technique was used, including ca p, mask, sterile gloves and gown and a large sterile sheet. Hand hygiene and 2% chlorhexidine and/or betadine/alcohol prep was utilized per protocol for cutaneous antisepsis. The skin and subcutaneous tissues were infiltrated with local anesthetic solution. With fluoroscopic guidance the lumbar thecal sac was punctured at the level above. The fluid describ ed above was removed without difficulty. The patient tolerated the procedure well and there were no complications. CONCLUSION: Uncomplicated fluoroscopically guided lumbar puncture. Roberto Yao MD on May 25, 2017 at 11:10 Board Certified Radiologist. This report was verified electronically.
[2017-05-25 11:41] LABS: SUPERNATE COLOR TUBE #1 CLEAR (CLEAR)
[2017-05-25 11:42] LABS: RBC TUBE #3 105 /MM3; WBC TUBE #3 5 /MM3 (0-10)
[2017-05-25 11:43] LABS: CSF BASOPHILS 1 %; CSF LYMPHOCYTES 85 %; CSF MONOCYTES 9 %; CSF NEUTROPHILS 5 %
[2017-05-25] MEDS ORDERED: ACYCLOVIR INJ 500 MG in SODIUM CHLORIDE 0.9% INJ 100 ML IV ONE (12:15)
[2017-05-25] MEDS ORDERED: cefTRIAXone INJ 2,000 MG in SODIUM CHLORIDE 0.9% INJ 100 ML IV ONE (12:15)
[2017-05-25] MEDS ORDERED: VANCOMYCIN INJ 1,000 MG in SODIUM CHLOR 0.9% 250 ML INJ 250 ML IV ONE (12:15)
--- NOTE | 2017-05-25 13:04 | HHI.HP ---
[facility] Service Family Medicine Primary Care Physician Josefina Riley MD Admission Diagnosis Intractible Headahce Diagnoses: Chief Complaint: headache International Travel<30 Days: No Contact w/Intl Traveler<30days: No Known Affected Area: No History of Present Illness 51-year-old female with history of HIV, diabetes, hypertension presents with worst headache of her life. She states the headache started around 2 AM in the morning. It woke her from sleep. Came on suddenly. She states it "feels like mashing brains in with a hammer." Endorses some nausea. No vomiting. States the pain is all over her head. Both sides. States she usually doesn't get headaches normally. Describes the pain as throbbing. 01/04. Has gotten worse since this morning. Denies any trauma to the head. Was given some pain medication the ED, denies alcohol. Denies any pain in rales. She states it hurts when she opens her eyes. Endorses photophobia. Endorses some neck stiffness. Denies any fever or chills. Was recently diagnosed with a UTI and yeast infection last week in ED. Some dizziness as well. No recent travel. No outdoor exposures. Has a history of HIV, which she has been taking her medications. Review of Systems ROS Limitations: Clinical Condition Constitutional: COMPLAINS OF: Weight loss (>20lbs in last 6 months), DENIES: Fever, Weight gain, Chills, Dizziness, Night Sweats Eyes: DENIES: Eye pain Ears, nose, mouth, throat: DENIES: Throat pain, Running Nose Respiratory: COMPLAINS OF: Cough, DENIES: Shortness of breath Cardiovascular: DENIES: Chest pain, Syncope, Lower Extremity Edema Gastrointestinal: DENIES: Abdominal pain, Constipation, Diarrhea, Nausea, Vomiting Genitourinary: DENIES: Urinary frequency, Dysuria Musculoskeletal: DENIES: Joint pain, Muscle aches Integumentary: DENIES: Abnormal pigmentation, Rash Hematologic/lymphatic: DENIES: Bruising, Lymphadenopathy Neurologic: COMPLAINS OF: Headache, DENIES: Localized weakness, Paresthesias, Seizures, Poor Balance Psychiatric: DENIES: Confusion, Mood changes Past Family Social History Past Medical History HIV-1989; Dr. Hightower DM HTN COPD Past Surgical History C-sectionx2 Reported Medications Reported Meds & Active Scripts Active Keflex (Cephalexin) 500 Mg Cap 500 Mg PO Q12H 7 Days Reported Lantus Inj (Insulin Glargine) 1,000 Unit/10 Ml Vial 34 Units SQ HS Metformin (Metformin HCl) 1,000 Mg Tab 1,000 Mg PO DAILY With a meal Clonidine (Clonidine HCl) 0.3 Mg Tab 0.3 Mg PO TID Allergies: Coded Allergies: morphine (Unverified Allergy, Severe, 05/25/17) oxycodone (Unverified Allergy, Severe, N/V-HIVES, 05/25/17) Active Ordered Medications Active Medications Acyclovir Sodium 500 mg/Sodium Chloride 100 ml @ 100 mls/hr ONCE ONCE IV; Start 05/25/17 at 12:15; Stop 05/25/17 at 13:14 Ceftriaxone Sodium 2000 mg/ Sodium Chloride 100 ml @ 200 mls/hr ONCE ONCE IV Last administered on 05/25/17at 12:27; Admin Dose 200 MLS/HR; Start 05/25/17 at 12:15; Stop 05/25/17 at 12:44; Status DC Diphenhydramine HCl (Benadryl Inj) 50 mg ONCE ONCE IVP Last administered on at 07:23; Admin Dose 50 MG; Start 05/25/17 at 07:15; Stop 05/25/17 at 07:16 ; Status DC Ketorolac Tromethamine (Toradol Inj) 30 mg ONCE ONCE IVP Last administered on at 07:23; Admin Dose 30 MG; Start 05/25/17 at 07:15; Stop 05/25/17 at 07: 16; Status DC Metoclopramide HCl (Reglan Inj) 10 mg ONCE ONCE IVP Last administered on at 07:23; Admin Dose 10 MG; Start 05/25/17 at 07:15; Stop 05/25/17 at 07:16; Status DC Sodium Chloride 1,000 ml @ 1,000 mls/hr Q1H ONCE IV Last administered on at 07:23; Admin Dose 1,000 MLS/HR; Start 05/25/17 at 07:08; Stop 05/25/17 at 08:07; Status DC Sodium Chloride (NS Flush) 2 ml UNSCH PRN IVF Last administered on 05/25/17at 12 :27; Admin Dose 2 ML; Start 05/25/17 at 07:15 Vancomycin HCl 1000 mg/Sodium Chloride 250 ml @ 250 mls/hr ONCE ONCE IV; Start 05/25/17 at 12:15; Stop 05/25/17 at 13:14 Family History Mother-uterine cancer Father-DM Social History Lives with and son Disability from arthritis Tobacco-3-4 cigs/day; >30 years Alcohol-denies Illicit drug use-denies Physical Exam Vital Signs Vital Signs Date Time Temp Pulse Resp B/P (MAP) Pulse Ox O2 Delivery O2 Flow Rate FiO2 05/25/17 12:00 97.7 86 16 133/82 (99) 98 Room Air 05/25/17 10:30 97.8 69 17 134/76 (95) 98 Room Air 05/25/17 09:02 97.8 76 16 170/76 (107) 99 Room Air 05/25/17 08:23 16 05/25/17 07:17 66 17 97 Room Air 05/25/17 07:17 98.0 66 17 170/71 (104) 100 Room Air 05/25/17 07:17 98.0 66 17 165/75 (105) 100 Room Air 05/25/17 06:43 97.8 67 20 165/75 (105) 100 Room Air 05/25/17 06:33 66 20 100 Physical Exam GENERAL: This is a well-nourished, well-developed patient. Lying in bed. In distress, moaning due to head pain. SKIN: No rashes, ecchymoses or lesions. Cool and dry. HEAD: Atraumatic. Diffuse scalp tenderness to palpation EYES: Pupils equal round and reactive. Extraocular motions intact. No scleral icterus. Some eye drainage. No conjunctivae is. ENT: Throat without erythema, tonsillar hypertrophy or exudate. Uvula midline. Airway patent. NECK: Trachea midline. Supple, some tenderness to palpation, but good range of motion. CARDIOVASCULAR: Regular rate and rhythm without murmurs, gallops, or rubs. RESPIRATORY: Clear to auscultation. Breath sounds equal bilaterally. No wheezes , rales, or rhonchi. GASTROINTESTINAL: Abdomen soft, non-tender, nondistended. No hepato-splenomegaly , or palpable masses. No guarding. MUSCULOSKELETAL: Extremities without clubbing, cyanosis, or edema. No joint tenderness, effusion, or edema noted. No calf tenderness. NEUROLOGICAL: Awake and alert. Motor and sensory grossly within normal limits. Normal speech. Negative Kernig's and Brudzinski's sign Laboratory Laboratory Tests Test 05/25/17 07:10 05/25/17 10:00 White Blood Count 9.2 Red Blood Count 4.85 Hemoglobin 11.0 Hematocrit 34.9 Mean Corpuscular Volume 71.9 Mean Corpuscular Hemoglobin 22.7 Mean Corpuscular Hemoglobin Concent 31.6 Red Cell Distribution Width 18.3 Platelet Count 364 Mean Platelet Volume 8.6 Neutrophils (%) (Auto) 57.6 Lymphocytes (%) (Auto) 30.3 Monocytes (%) (Auto) 9.3 Eosinophils (%) (Auto) 1.9 Basophils (%) (Auto) 0.9 Neutrophils # (Auto) 5.3 Lymphocytes # (Auto) 2.8 Monocytes # (Auto) 0.9 Eosinophils # (Auto) 0.2 Basophils # (Auto) 0.1 CBC Comment DIFF FINAL Differential Comment Erythrocyte Sedimentation Rate 40 Prothrombin Time 9.9 Prothromb Time International Ratio 1.0 Activated Partial Thromboplast Time 22.6 Blood Urea Nitrogen 9 Creatinine 0.87 Random Glucose 323 Total Protein 7.0 Albumin 2.9 Calcium Level 8.4 Alkaline Phosphatase 75 Aspartate Amino Transf (AST/SGOT) 21 Alanine Aminotransferase (ALT/SGPT) 17 Total Bilirubin 1.0 Sodium Level 137 Potassium Level 3.9 Chloride Level 102 Carbon Dioxide Level 29.4 Anion Gap 6 Estimat Glomerular Filtration Rate 83 C-Reactive Protein 1.38 CSF Volume (Tube 1) 3.0 CSF Supernatant Color (tube 1) CLEAR CSF Gross Blood (Tube 1) TRACE CSF Volume (Tube 2) 1.0 CSF Supernatant Color (tube 2) CLEAR CSF Gross Blood (Tube 2) 3+ CSF Volume (Tube 3) 4.0 CSF Supernatant Color (tube 3) CLEAR CSF Gross Blood (Tube 3) 1+ CSF WBC (Tube 3) 5 CSF RBC (Tube 3) 105 CSF Neutrophils 5 CSF Lymphocytes 85 CSF Monocytes 9 CSF Basophils 1 CSF Differential Comment CSF Glucose 158 CSF Total Protein 42.9 Date/Time Source Procedure Growth Status 05/25/17 07:24 Blood Peripheral Aerobic Blood Culture Pending Received 05/25/17 07:24 Blood Peripheral Anaerobic Blood Culture Pending Received 05/25/17 10:00 Cerebral Spinal Fluid Lumbar Puncture Gram Stain - Final Resulted 05/25/17 10:00 Cerebral Spinal Fluid Lumbar Puncture CSF Culture Pending Resulted Result Diagram: 05/25/17 0710 05/25/17 0710 Imaging Last Impressions Head CT 05/25/17 0708 Signed Impressions: Service Date/Time: Thursday, May 25, 2017 07:54 - CONCLUSION: Negative noncontrast CT Kashif Mon MD Lumbar Puncture Fluoroscopy 05/25/17 0000 Signed Impressions: Service Date/Time: Thursday, May 25, 2017 09:44 - CONCLUSION: Uncomplicated fluoroscopically guided lumbar puncture. Roberto Yao MD [place] VTE Risk Assessment Caprini VTE Risk Assessment: No/Low Risk (score <= 1) Caprini Risk Assessment Model Point Value = 1 Point Value = 2 Point Value = 3 Point Value = 5 Age 41-60 Minor surgery BMI > 25 kg/m2 Swollen legs Varicose veins or History of unexplained or recurrent spontaneous Oral contraceptives or hormone replacement Sepsis (< 1 month) Serious lung disease, including pneumonia (< 1 month) Abnormal pulmonary function Acute myocardial infarction Congestive heart failure (< 1 month) History of inflammatory bowel disease Medical patient at bed rest Age 61-74 Arthroscopic surgery Major open surgery (> 45 min) Laparoscopic surgery (> 45 min) Malignancy Confined to bed (> 72 hours) Immobilizing plaster cast Central venous access Age >= 75 History of VTE Family history of VTE Factor V Leiden Prothrombin [id number] Lupus anticoagulant Anticardiolipin antibodies Elevated serum homocysteine Heparin-induced thrombocytopenia Other congenital or acquired thrombophilia Stroke (< 1 month) Elective arthroplasty Hip, pelvis, or leg fracture Acute spinal cord injury (< 1 month) Prophylaxis Regimen Total Risk Factor Score Risk Level Prophylaxis Regimen 0-1 Low Early ambulation 2 Moderate Order ONE of the following: *Sequential Compression Device (SCD) *Heparin 5000 units SQ BID 3-4 Higher Order ONE of the following medications: *Heparin 5000 units SQ TID *Enoxaparin/Lovenox 40 mg SQ daily (WT < 150 kg, CrCl > 30 mL/min) *Enoxaparin/Lovenox 30 mg SQ daily (WT < 150 kg, CrCl > 10-29 mL/min) *Enoxaparin/Lovenox 30 mg SQ BID (WT < 150 kg, CrCl > 30 mL/min) AND/OR *Sequential Compression Device (SCD) 5 or more Highest Order ONE of the following medications: *Heparin 5000 units SQ TID (Preferred with Epidurals) *Enoxaparin/Lovenox 40 mg SQ daily (WT < 150 kg, CrCl > 30 mL/min) *Enoxaparin/Lovenox 30 mg SQ daily (WT < 150 kg, CrCl > 10-29 mL/min) *Enoxaparin/Lovenox 30 mg SQ BID (WT < 150 kg, CrCl > 30 mL/min) AND *Sequential Compression Device (SCD) Assessment and Plan Assessment and Plan 51-year-old female with history of HIV, diabetes presents with headache. LP performed due to concern for possible meningitis. Head CT negative for bleeding. We'll admit for workup and treatment. Code Status Full Discussed Condition With Dr. Dixon Problem List: (1) Intractable headache ICD Codes: R51 - Headache Status: Acute Plan: Differential diagnosis includes: migraine vs tension [place] vs HTN vs malignancy vs meningitis Head CT: negative WBC 9.2, CRP 1.38, ESR 40. Afebrile Normal neuro exam. LP performed in ED shows: 5 WBC, 5% PMN, 85% lymphocytes, 9% monocytes; 158 glucose, 42.9 protein CSF Gram stain negative. Given Vancomycin, Rocephin, Acyclovir in ED -CSF cultures pending -Blood cultures pending -Consult ID, appreciate recs -Continue empiric antibiotics for possible meningitis, although suspect viral due to LP studies -Vancomycin, Ceftazidime, Ampicillin, Acyclovir -MRI w/ contract to rule out other etiology -Neuro checks -Toradol for pain, Dilaudid for breakthrough (2) HIV (human immunodeficiency virus infection) ICD Codes: B20 - Human immunodeficiency virus [HIV] disease Status: Chronic Plan: History of HIV. States she is compliant with her meds. Unknown last CD4 count -Continue home meds -Check CD4 count -ID consulted (3) DM (diabetes mellitus) ICD Codes: E11.9 - Type 2 diabetes mellitus without complications Status: Acute Plan: On home Lantus 34units HS and Metformin -Hold Metformin while inpatient -Will give 1/2 basal dose of Lantus -Low dose SSI w/ regular accuchecks (4) HTN (hypertension) ICD Codes: I10 - Essential (primary) hypertension Status: Acute Plan: 165/75 on admission. -Continue home clonidine -Monitor vitals (5) FEN Status: Acute Plan: Fluids: NS @ maintenance Electrolytes: wnl, continue to monitor Nutrition: regular diet DVT ppx: SCDs, early ambulation Physician Certification 2 Midnight Certification Type: Admission for Inpatient Services Order for Inpatient Services The services are ordered in accordance with Medicare regulations or non- Medicare payer requirements, as applicable. In the case of services not specified as inpatient-only, they are appropriately provided as inpatient services in accordance with the 2-midnight benchmark. Estimated LOS (days): 2 days is the estimated time the patient will need to remain in the hospital, assuming treatment plan goals are met and no additional complications. Post-Hospital Plan: Home Problem Qualifiers (1) Intractable headache: Qualified Codes: R51 - Headache (2) DM (diabetes mellitus): (3) HTN (hypertension): Qualified Codes: I10 - Essential (primary) hypertension Navid Mary MD May 25, 2017 13:04
[2017-05-25] MEDS ORDERED: NALOXONE HCL 0.4 MG/ML AMP IV PUSH PRN ×2 (13:30→15:00)
[2017-05-25] MEDS ORDERED: LACTULOSE SYRUP 20 GM/30 ML CUP PO PRN (13:30)
[2017-05-25] MEDS ORDERED: SODIUM CHLORIDE 0.9% FLUSH 10 ML FLUSH IV FLUSH PRN (13:30)
[2017-05-25] MEDS ORDERED: BISACODYL 10 MG SUPP RECTAL PRN (13:30)
[2017-05-25] MEDS ORDERED: SENNOSIDES 8.6 MG TAB PO PRN (13:30)
[2017-05-25] MEDS ORDERED: ACETAMINOPHEN 325 MG TAB PO PRN ×2 (13:30→15:00)
[2017-05-25] MEDS ORDERED: DEXTROSE 50% IN WATER 50 ML VIAL(D50) IV PUSH PRN (13:45)
[2017-05-25] MEDS ORDERED: GLUCAGON 1 MG/ML VIAL OTHER PRN (13:45)
[2017-05-25] MEDS: SODIUM CHLOR 0.9% 1000 ML INJ 1,000 ML IV SCH ×2 (13:45→21:09)
[2017-05-25] MEDS ORDERED: Vancomycin Consult Pharmacy 1 EA OTHER SCH (14:00)
[2017-05-25] MEDS ORDERED: KETOROLAC TROMETHAMINE 30 MG/ML (IVP) VIAL IV PUSH PRN (15:00)
[2017-05-25] MEDS ORDERED: HYDROmorphone HCL PF 2 MG/ML VIAL IV PUSH ONE (15:00)
[2017-05-25] MEDS ORDERED: RITO100 PO (15:58)
[2017-05-25] MEDS ORDERED: EMTR1TAB5 PO (15:58)
[2017-05-25] MEDS: INSULIN ASPART SUPPLEMENTAL SCALE SQ SCH ×2 (16:53→20:29)
[2017-05-25] MEDS: KETOROLAC TROMETHAMINE 30 MG/ML (IVP) VIAL IV PUSH PRN (20:03)
[2017-05-25] MEDS: ONDANSETRON HCL 4 MG/2 ML VIAL IVP PRN (20:03)
[2017-05-25] MEDS: AMPICILLIN INJ 2,000 MG in SODIUM CHLORIDE 0.9% INJ 100 ML IV SCH (20:08)
[2017-05-25] MEDS: ACYCLOVIR INJ 1,000 MG in SODIUM CHLORIDE 0.9% INJ 150 ML IV SCH (20:09)
[2017-05-25] MEDS: VANCOMYCIN INJ 1,750 MG in SODIUM CHLORID 0.9% 500 ML INJ 500 ML IV SCH (20:10)
[2017-05-25] MEDS: cefTAZidime INJ 2,000 MG in SODIUM CHLORIDE 0.9% INJ 100 ML IV SCH (20:10)
[2017-05-25] MEDS: SODIUM CHLORIDE 0.9% FLUSH 10 ML FLUSH IV FLUSH SCH (20:13)
[2017-05-25] MEDS: DOCUSATE SODIUM 50 MG/SENNA 8.6 MG TAB PO SCH (20:13)
[2017-05-25] MEDS: cloNIDine HCL 0.3 MG TAB PO SCH (20:23)
[2017-05-25] MEDS: INSULIN DETEMIR 100 UNITS/ML VIAL SQ SCH (20:31)
[2017-05-25] MEDS ORDERED: GADODIAMIDE PF 287 MG/ML 20 ML VIAL (for RAD MRI) IVCONTRAST ONE (21:08)
--- NOTE | 2017-05-25 22:17 | RADRPT ---
EXAM DATE/TIME: 05/25/2017 20:59 [facility] COMPARISON: No previous studies available for comparison. INDICATIONS : Headaches CONTRAST: 20 cc Omniscan (gadodiamide) IV MEDICAL HISTORY : Hypertension. Chronic obstructive pulmonary disease. HIV. Diabetes, Asthma SURGICAL HISTORY : section. ENCOUNTER: Initial ACUITY: 1 day PAIN SCORE: 0/10 LOCATION: Brain TECHNIQUE: Multiplanar, multisequence MRI of the brain was performed both prior to and following the administrat ion of paramagnetic contrast. FINDINGS: CEREBRUM: The ventricles are normal for age. No evidence of midline shift, mass lesion, hemorrhage or acute in farction. No extraaxial fluid collections are seen. There is evidence of a complex cystic mass withi n the sella measuring 2.1 x 1.4 x 1.6 cm which appears to result in some mass effect upon the optic c hiasm. There is a tiny enhancing nodule to the left of midline within the predominantly cystic lesion . WHITE MATTER: No significant signal abnormalities are seen in the white matter. POSTERIOR FOSSA: The cerebellum and brainstem are intact. The 4th ventricle is midline. The cerebellopontine angle is unremarkable. The cerebellar tonsils are normal in position. DIFFUSION IMAGING: No focal areas of restricted diffusion are seen. No evidence of acute infarction. EXTRACRANIAL: The visualized portions of the orbits and paranasal sinuses are unremarkable. POST-CONTRAST: No abnormal areas of parenchymal or dural enhancement. No evidence of blood-brain barrier breakdown. CONCLUSION: Complex cystic mass within the sella measuring 2.1 x 1.4 x 1.6 cm which appears to re sult in some mass effect upon the optic chiasm. There is a tiny enhancing nodule to the left of midli ne within the predominantly cystic lesion. Kevin Boss MD on May 25, 2017 at 22:10 Board Certified Radiologist. This report was verified electronically.
[2017-05-25] MEDS: HYDROmorphone HCL PF 2 MG/ML VIAL IV PUSH PRN (22:36)
[2017-05-26] VITALS: BP 153/79; PULSE 65; RESP 14; TEMP 98.6; O2SAT 100
[2017-05-26] MEDS ORDERED: VANCOMYCIN INJ 1,500 MG in SODIUM CHLORID 0.9% 500 ML INJ 500 ML IV SCH ×2
[2017-05-26] MEDS: KETOROLAC TROMETHAMINE 30 MG/ML (IVP) VIAL IV PUSH PRN ×3 (02:31→22:50)
[2017-05-26] MEDS: AMPICILLIN INJ 2,000 MG in SODIUM CHLORIDE 0.9% INJ 100 ML IV SCH ×5 (02:32→18:00)
[2017-05-26] MEDS: HYDROmorphone HCL PF 2 MG/ML VIAL IV PUSH PRN ×6 (03:30→23:49)
[2017-05-26] MEDS: cefTAZidime INJ 2,000 MG in SODIUM CHLORIDE 0.9% INJ 100 ML IV SCH ×2 (03:33→11:52)
[2017-05-26] MEDS: SODIUM CHLOR 0.9% 1000 ML INJ 1,000 ML IV SCH ×3 (03:35→18:36)
[2017-05-26] MEDS: ACYCLOVIR INJ 1,000 MG in SODIUM CHLORIDE 0.9% INJ 150 ML IV SCH ×3 (04:47→22:51)
[2017-05-26 07:09] LABS: AUTOMATED NEUTROPHIL # 9.7 TH/MM3 (1.8-7.7); BASOPHIL # 0.1 TH/MM3 (0-0.2); BASOPHIL % 0.5 % (0.0-2.0); HEMATOCRIT 35.4 % (35.0-46.0); HEMOGLOBIN 11.2 GM/DL (11.6-15.3); LYMPH % 12.2 % (9.0-44.0); LYMPHOCYTE # 1.4 TH/MM3 (1.0-4.8); MEAN CELL VOLUME 71.2 FL (80.0-100.0); MEAN CORPUSCULAR HEMOGLOBIN 22.4 PG (27.0-34.0); MEAN CORPUSCULAR HGB CONC 31.5 % (32.0-36.0); MONO % 4.5 % (0.0-8.0); MONOCYTE # 0.5 TH/MM3 (0-0.9); NEUT % 82.8 % (16.0-70.0); PLATELET COUNT 394 TH/MM3 (150-450); RED BLOOD COUNT 4.98 MIL/MM3 (4.00-5.30); RED CELL DISTRIBUTION WIDTH 17.9 % (11.6-17.2); WHITE BLOOD COUNT 11.7 TH/MM3 (4.0-11.0)
[2017-05-26 07:15] LABS: BICARBONATE 26.4 MEQ/L (21.0-32.0); CALCIUM 7.9 MG/DL (8.5-10.1); CREATININE 0.48 MG/DL (0.50-1.00)
[2017-05-26 08:00] VITALS: BP 212/88; PULSE 50; RESP 18; TEMP 96; O2SAT 98
[2017-05-26] MEDS: INSULIN ASPART SUPPLEMENTAL SCALE SQ SCH ×4 (08:00→23:16)
[2017-05-26] MEDS: EMTRICITABINE/TENOFOVIR 200 MG/300 MG TAB PO SCH (08:19)
[2017-05-26] MEDS: RITONAVIR 100 MG TAB PO SCH (08:19)
[2017-05-26] MEDS: DOCUSATE SODIUM 50 MG/SENNA 8.6 MG TAB PO SCH ×2 (08:19→21:00)
[2017-05-26] MEDS: cloNIDine HCL 0.3 MG TAB PO SCH ×3 (08:19→18:00)
[2017-05-26] MEDS: ONDANSETRON HCL 4 MG/2 ML VIAL IVP PRN (08:27)
[2017-05-26 08:39] VITALS: BP 222/68; PULSE 52; RESP 18; TEMP 96.2; O2SAT 99
[2017-05-26] MEDS: VANCOMYCIN INJ 1,750 MG in SODIUM CHLORID 0.9% 500 ML INJ 500 ML IV SCH (09:00)
[2017-05-26] MEDS: SODIUM CHLORIDE 0.9% FLUSH 10 ML FLUSH IV FLUSH SCH ×2 (09:00→22:54)
[2017-05-26 10:43] LABS: HEMOGLOBIN A1C 13.4 % (4.3-6.0)
[2017-05-26] MEDS ORDERED: ACETAMINOPHEN/HYDROcodone 325 MG/10 MG TAB PO PRN (11:15)
--- NOTE | 2017-05-26 11:18 | HHI.FPPN ---
Subjective Remarks Patient seen and examined at bedside. Patient's the complaining of headache states her pain medication currently helps her relax but not helping with the pain. Patient still rates the pain 10/10 and describes it as throbbing. Patient endorses nausea and vomiting due to the pain. Denies chest pain or shortness of breath. (Debra Wong MD, R1) Objective Vitals Vital Signs Date Time Temp Pulse Resp B/P (MAP) Pulse Ox O2 Delivery O2 Flow Rate FiO2 05/26/17 08:39 96.2 52 18 222/68 (119) 99 05/26/17 08:00 96.0 50 18 212/88 (129) 98 05/26/17 00:00 98.6 65 14 153/79 (103) 100 05/25/17 20:00 98.9 62 14 159/80 (106) 100 05/25/17 17:25 97.8 43 18 145/70 (95) 96 05/25/17 16:03 05/25/17 15:23 50 16 185/85 (118) 96 Room Air 05/25/17 13:00 97.9 65 16 128/83 (98) 98 Room Air 05/25/17 12:00 97.7 86 16 133/82 (99) 98 Room Air I/O 05/25/17 05/25/17 05/25/17 05/26/17 05/26/17 05/26/17 07:00 15:00 23:00 07:00 15:00 23:00 Intake Total 1350 ml 450 ml 967.5 ml Balance 1350 ml 450 ml 967.5 ml Intake Oral 0 ml 0 ml IV Total 1350 ml 450 ml 967.5 ml # Voids 1 4 # Bowel Movements 0 0 (Debra Wong MD, R1) Result Diagram: 05/26/17 0617 05/26/17 0617 Imaging Last Impressions Head CT 05/25/17 0708 Signed Impressions: Service Date/Time: Thursday, May 25, 2017 07:54 - CONCLUSION: Negative noncontrast CT Kashif Mon MD Lumbar Puncture Fluoroscopy 05/25/17 0000 Signed Impressions: Service Date/Time: Thursday, May 25, 2017 09:44 - CONCLUSION: Uncomplicated fluoroscopically guided lumbar puncture. 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 There is a tiny enhancing nodule to the left of midline within the predominantly cystic lesion. Kevin Boss MD Objective Remarks GENERAL: This is a well-nourished, well-developed patient. Lying in bed. In distress, moaning due to head pain. SKIN: No rashes, ecchymoses. Cool and dry. Skin lesion on back noted to be draining pus. HEAD: Atraumatic. Diffuse scalp tenderness to palpation EYES: Pupils equal round and reactive. Extraocular motions intact. mild scleral icterus and eye drainage noted. No conjunctivae injection. Right superior quadrantanopia visual field deficit noted on exam. ENT: Throat without erythema, tonsillar hypertrophy or exudate. Uvula midline. Airway patent. NECK: Trachea midline. Supple, some tenderness to palpation, but good range of motion. CARDIOVASCULAR: Regular rate and rhythm without murmurs, gallops, or rubs. RESPIRATORY: Clear to auscultation. Breath sounds equal bilaterally. No wheezes , rales, or rhonchi. GASTROINTESTINAL: Abdomen soft, non-tender, nondistended. No hepato-splenomegaly , or palpable masses. No guarding. MUSCULOSKELETAL: Extremities without clubbing, cyanosis, or edema. No joint tenderness, effusion, or edema noted. No calf tenderness. NEUROLOGICAL: Awake and alert. Motor and sensory grossly within normal limits. Normal speech. Negative Kernig's and Brudzinski's sign (Debra Wong MD, R1) A/P Assessment and Plan 51-year-old female with history of HIV, diabetes presents with headache. LP performed due to concern for possible meningitis. Head CT negative for bleeding. We'll admit for workup and treatment. (Debra Wong MD, R1) Attending Attestation THIS CASE WAS DISCUSSED WITH THE RESIDENT PHYSICIANS DR ALEX>DR OROZCO AND DR WONG.PATIENT WAS SEEN AND EXAMINED. I HAVE REVIEWED THE RECORD AND AGREE WITH THE ABOVE NOTE AND PLAN OF CARE WAS DISCUSSED. I HAVE AUTHORIZED THE ORDER FOR ADMISSION TO AN IN-PATIENT STATUS. (Hernan Rdz MD) Problem List: (1) Intractable headache ICD Codes: R51 - Headache Status: Acute Plan: Differential diagnosis includes: migraine vs tension [place] vs HTN vs malignancy vs meningitis On admission: Head CT: negative WBC 9.2, CRP 1.38, ESR 40. Afebrile Normal neuro exam. LP performed in ED shows: 5 WBC, 5% PMN, 85% lymphocytes, 9% monocytes; 158 glucose, 42.9 protein CSF Gram stain negative. Given Vancomycin, Rocephin, Acyclovir in ED -Patient remains afebrile, Elevated WBC (11.7) on today's CBC -CSF cultures no growth x 1 day -Blood cultures no growth x 1 day -Consult ID, appreciate recs -Continue empiric antibiotics for possible meningitis, although suspect viral due to LP studies -Vancomycin, Ceftazidime, Ampicillin, Acyclovir -MRI w/ contract: Cystic mass within the sella measuring 2.11.41.6 cm which appears to result in some mass effect on upon the optic chiasm. There is a tiny enhancing nodule within the left of the mid line within the dominant cystic lesion -f/u prolactin & TSH level -Neurosurgery consulted, appreciate recommendations -Neuro checks - Pain regimen updated: Hydrocodone/acetaminophen 10 mg for pain 1-5 Toradol for pain scale 6-10, Dilaudid for breakthrough (2) HIV (human immunodeficiency virus infection) ICD Codes: B20 - Human immunodeficiency virus [HIV] disease Status: Chronic Plan: History of HIV. States she is compliant with her meds. Unknown last CD4 count -Continue home meds -CD4 count pending -ID consulted (3) DM (diabetes mellitus) ICD Codes: E11.9 - Type 2 diabetes mellitus without complications Status: Acute Plan: On home Lantus 34units HS and Metformin -Hold Metformin while inpatient -Will give 1/2 basal dose of Lantus -Low dose SSI w/ regular accuchecks (4) HTN (hypertension) ICD Codes: I10 - Essential (primary) hypertension Status: Acute Plan: 165/75 on admission. -Continue home clonidine -Monitor vitals (5) Skin lesion of back ICD Codes: L98.9 - Disorder of the skin and subcutaneous tissue, unspecified Status: Chronic Plan: She stated that she has history of back lesions that drain pus. -Patient state these lesion occur intermittently since she received epidural injection for her last c/s -Back lesion observed to be draining green-yellowish push on exam -Wound culture obtained, f/u results (6) FEN Status: Acute Plan: Fluids: NS @ maintenance Electrolytes: wnl, continue to monitor Nutrition: regular diet DVT ppx: SCDs, early ambulation (Debra Wong MD, R1) Problem Qualifiers (1) Intractable headache: Qualified Codes: R51 - Headache (2) DM (diabetes mellitus): (3) HTN (hypertension): Qualified Codes: I10 - Essential (primary) hypertension Debra Wong MD, R1 May 26, 2017 11:18 Hernan Rdz MD May 27, 2017 14:09
[2017-05-26 12:00] VITALS: BP 204/86; PULSE 50; RESP 18; TEMP 96.5; O2SAT 96
[2017-05-26] MEDS: CIPROFLOXACIN 0.3% OPTH OINT 3.5 GM TUBO EACH EYE SCH ×2 (13:55→22:55)
[2017-05-26 16:00] VITALS: BP 210/82; PULSE 53; RESP 19; TEMP 96.2; O2SAT 97
--- NOTE | 2017-05-26 17:08 | MB ---
cc: Kaushik Keen MD, Rohit K MD DATE OF CONSULT: 05/26/2017 REASON FOR CONSULTATION: Suprasellar cyst. HISTORY OF PRESENT ILLNESS: This 51 year old obese, female was admitted yesterday morning with complaints of diffuse headaches which were severe initially. She denies any particular inciting events. She has had headaches in the past but not to this severity. She presented to the emergency room and since her admission work up has been undertaken including CT scan of the head, had a subsequent MRI scan of the brain as well as lumbar puncture with no evidence of any acute hemorrhage. Although on the MRI scan there is about a 2 centimeter sella, suprasellar cyst with nodular enhancement, could possibly be a remnant of pituitary which enhances. It approaches the optic chiasm. She states that with the pain medications her headaches have improved, although she has chronic pain syndrome with low back pain. Has been on narcotic pain medications for this at home also. PAST MEDICAL HISTORY: 1. Diabetes mellitus. 2. Hypertension. 3. HIV 4. COPD 5. . MEDICATIONS: 1. The medications at home include; Clonidine. 2. Metformin 3. Insulin 4. Dilaudid as needed 5. Keflex 500 mg q 12 hours x 7 days. 6. Norvir 100 mg daily. 7. Emtricitabine/Tenofovir disoproxil 1 tablet daily. ALLERGIES: MORPHINE OXYCODONE SOCIAL HISTORY: She is , is on chronic disability, smokes about four cigarettes per day. Denies alcohol, illicit drug use. FAMILY HISTORY: Positive for diabetes mellitus in the father. Uterine cancer in mother. REVIEW OF SYSTEMS: Pertinent positives includes complaints of headaches. Initially complained of some photophobia but this has resolved. Denies any neck pain, has chronic low back pain. Denies any numbness or paraesthesias in the upper or lower extremities. Denies any visual symptoms. No fevers or chills. No history of easy bleeding or bruising. Otherwise review of systems is negative. LABORATORY STUDIES: White blood cell count 11.7, hemoglobin 11.2, platelet count 394. PT 9.9, INR 1.0, PTT 22.6. Sodium 138, potassium 3.4, BUN 6, creatinine 0.48, glucose 209. CSF from lumbar puncture, no growth for 24 hours with initial RBC 105, white blood cells 5. Only one syringes was sent off. PHYSICAL EXAMINATION: VITAL SIGNS: Temperature 96.5, pulse is 50, respiratory rate 18, Blood pressure 204/86. Oxygen saturation is 96% on room air. GENERAL CONDITION: This is an obese, female sitting up in her bed with no acute distress. HEENT: Head normocephalic atraumatic. NECK: No guarding, no rigidity, trachea midline with good range of motion. CHEST: Good oxygen bilaterally. HEART: Brachycardiac, normal S1, S 2. ABDOMEN: Soft, nontender, she is obese, no hepatosplenomegaly. EXTREMITIES: No cyanosis or edema. SKIN: No ecchymosis, pustules or rashes noted. NEUROLOGIC: She is awake, alert, she is oriented times three. Pupils are equal and reactive, extraocular muscles are intact, no icterus, no sclera or any conjunctivitis noted. Her visual phan are full. No discreet visual deficits noted. Face is symmetric, tongue is midline. Motor strength in the upper and lower extremities is 5/5 normal sensation. Symmetrically reflexes, negative Babinski, speech is fluent. IMPRESSION: 1. 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 This appears to be more of a chronic finding and I am not convinced that this is the source of her headaches. 2. Unregulated hypertension. 3. Chronic pain syndrome. She is under pain management for back pain and relates to me that she has been taking Dilaudid at home. 4. Diabetes mellitus. PLAN: I recommend regulation of her hypertension as this may also be contributing to her headaches along with pain management. Regarding this sellar suprasellar cyst. At this point unless there is further growth noted recommend observation and conservative management. We did discuss the option of surgery and cyst drainage should this cyst enlarge over time but she seems to be reluctant to undergo any surgical procedure for this currently. I would also recommend pituitary, hormonal work up along with visual field testing as a baseline study and then repeat imaging and visual field testing in six to 12 months or sooner should she become more symptomatic. I also recommend endocrinology evaluation should she have any hormonal dysfunction and take appropriate treatment accordingly. At this point she will be seen on as needed basis. MD KATHI Multani/MECCA , 04:03 PM , 05:07 PM
--- NOTE | 2017-05-26 18:35 | HHI.PR ---
Addendum to Inpatient Note Additional Information seen around 1830 full note to follow Briefly 51 yo female with HIV dz (last CD4 > 1000 11/2015), on HAART , undetectable; poorly controlled DM (HbA1 C 13+), HTN preserntedd with severe WINSLOW, afebrile, no neuro deficits but has some intermittent vision blurriness MRI brain with cystic mass - eval'd by neurosx: conservative mngmnt, hirmonal w/ u LP with WBC on the upper limit, lymph pleocytosis, RBC elevated, HSV P Draining lesion x 10 yrs in T spine (following procedure: epidural injection) On exam Obese NEURO: WNL sinus tract T spine with odorless hawkins purulence, not tender no deformities rest of exam unremarkable except obesity A/P Borderline lymphocytic pleocytosis - CSF not cw abe menningitis HIV dz 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
--- NOTE | 2017-05-26 18:42 | PD.ID.CON ---
History of Present Illness Service ID Consult Requested By Dr Sinha Reason for Consult meningitis Primary Care Physician Josefina Riley MD Diagnoses: History of Present Illness 51 yo female with HIV dz (last CD4 > 1000 11/2015), on HAART , undetectable; poorly controlled DM (HbA1 C 13+), HTN preserntedd with severe WINSLOW, afebrile, no neuro deficits but has some intermittent vision blurriness MRI brain with cystic mass - eval'd by neurosx: conservative mngmnt, hirmonal w/ u LP with WBC on the upper limit, lymph pleocytosis, RBC elevated, HSV P Draining lesion x 10 yrs in T spine (following procedure: epidural injection) Pt remains afebrile throught the hospital course, denies any localised weakness , numbness Review of Systems Except as stated in HPI: all other systems reviewed are Neg Past Family Social History Allergies: Coded Allergies: morphine (Unverified Allergy, Severe, 05/25/17) oxycodone (Unverified Allergy, Severe, N/V-HIVES, 05/25/17) tenofovir (Verified Adverse Reaction, Severe, 05/31/17) kidney failure Past Medical History HIV-1989; Dr. Hightower DM HTN COPD Past Surgical History C-sectionx2 Active Ordered Medications Medications where reviewed in EMR Antibiotics Include: cefepime ampicillin acyclovir Family History Mother-uterine cancer Father-DM Social History Lives with and son Disability from arthritis Tobacco-3-4 cigs/day; >30 years Alcohol-denies Illicit drug use-denies Physical Exam Vital Signs Vital Signs Date Time Temp Pulse Resp B/P (MAP) Pulse Ox O2 Delivery O2 Flow Rate FiO2 05/26/17 16:00 96.2 53 19 210/82 (124) 97 05/26/17 12:00 96.5 50 18 204/86 (125) 96 05/26/17 08:39 99 21 05/26/17 08:39 96.2 52 18 222/68 (119) 99 05/26/17 08:00 96.0 50 18 212/88 (129) 98 05/26/17 00:00 98.6 65 14 153/79 (103) 100 05/25/17 20:00 98.9 62 14 159/80 (106) 100 Physical Exam CONSTITUTIONAL/GENERAL: This is an obese female patient, in no apparent distress. TUBES/LINES/DRAINS: SKIN: No jaundice, rashes, or lesions. Skin temperature appropriate. Not diaphoretic. HEAD: Atraumatic. Normocephalic. EYES: Pupils equal and round and reactive. Extraocular motions intact. No scleral icterus. No injection or drainage. Fundi not examined. ENT: Hearing grossly normal. Nose without bleeding or purulent drainage. Throat without visible erythema, exudates, masses, or lesions. No oral thrush NECK: Trachea midline. Supple, nontender. No palpable thyroid enlargement or nodularity. CARDIOVASCULAR: Regular rate and rhythm without murmurs, gallops, or rubs. No JVD. Peripheral pulses symmetric. RESPIRATORY/CHEST: Symmetric, unlabored respirations. Clear to auscultation. Breath sounds equal bilaterally. No wheezes, rales, or rhonchi. GASTROINTESTINAL: Abdomen soft, non-tender, nondistended. No hepato-splenomegaly , or palpable masses. No guarding. Bowel sounds present. GENITOURINARY: Without palpable bladder distension. MUSCULOSKELETAL: Extremities without clubbing, cyanosis, or edema. No joint tenderness or effusion noted. No calf tenderness. No mottling or clubbing. BACK: small opening over thoracic spine draining hawkins thick odorless pus, moderate amount LYMPHATICS: No palpable cervical or supraclavicular adenopathy. NEUROLOGICAL: Awake and alert. Motor and sensory grossly within normal limits. Follows commands. Clear speech . Moves all extremities. PSYCHIATRIC: No obvious anxiety/depression. no apparent hallucinations or other psychotic thought process. Laboratory Laboratory Tests Test 05/26/17 06:17 05/26/17 07:35 White Blood Count 11.7 Red Blood Count 4.98 Hemoglobin 11.2 Hematocrit 35.4 Mean Corpuscular Volume 71.2 Mean Corpuscular Hemoglobin 22.4 Mean Corpuscular Hemoglobin Concent 31.5 Red Cell Distribution Width 17.9 Platelet Count 394 Mean Platelet Volume 8.0 Neutrophils (%) (Auto) 82.8 Lymphocytes (%) (Auto) 12.2 Monocytes (%) (Auto) 4.5 Eosinophils (%) (Auto) 0.0 Basophils (%) (Auto) 0.5 Neutrophils # (Auto) 9.7 Lymphocytes # (Auto) 1.4 Monocytes # (Auto) 0.5 Eosinophils # (Auto) 0.0 Basophils # (Auto) 0.1 CBC Comment DIFF FINAL Differential Comment Blood Urea Nitrogen 6 Creatinine 0.48 Random Glucose 209 Calcium Level 7.9 Sodium Level 138 Potassium Level 3.4 Chloride Level 102 Carbon Dioxide Level 26.4 Anion Gap 10 Estimat Glomerular Filtration Rate 165 Hemoglobin A1c 13.4 Thyroid Stimulating Hormone 3rd Gen 0.607 Date/Time Source Procedure Growth Status 05/25/17 07:24 Blood Peripheral Aerobic Blood Culture - Preliminary NO GROWTH IN 1 DAY Resulted 05/25/17 07:24 Blood Peripheral Anaerobic Blood Culture - Preliminary NO GROWTH IN 1 DAY Resulted 05/25/17 10:00 Cerebral Spinal Fluid Lumbar Puncture Gram Stain - Final Resulted 05/25/17 10:00 Cerebral Spinal Fluid Lumbar Puncture CSF Culture - Preliminary NO GROWTH IN 24 HOURS. Resulted 05/26/17 09:40 Wound Back Fungal Smear - Final NO FUNGAL ELEMENTS SEEN. Resulted 05/26/17 09:40 Wound Back Fungal Culture Pending Resulted Result Diagram: 05/26/1761605/26/17 0617 Imaging Last Impressions Head CT 05/25/17 0708 Signed Impressions: Service Date/Time: Thursday, May 25, 2017 07:54 - CONCLUSION: Negative noncontrast CT Kashif Mon MD Lumbar Puncture Fluoroscopy 05/25/17 0000 Signed Impressions: Service Date/Time: Thursday, May 25, 2017 09:44 - CONCLUSION: Uncomplicated fluoroscopically guided lumbar puncture. 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 There is a tiny enhancing nodule to the left of midline within the predominantly cystic lesion. Kevin Boss MD Assessment and Plan Assessment and Plan A/P Borderline lymphocytic pleocytosis - CSF not cw abe menningitis; ? aseptic meningitis HIV dz Sinus tract sspect chronic infectio of T spine following injection brain mass- NS ff dc abx will dc acyclovit when HSV come negative MRI back Routine/AFB/fungal clx Discussed Condition With dw pt dgtr Older dghtr knws about pt's HIV dz, other family members unaware and pt does not want to disclose Jane Rocha MD May 26, 2017 18:42
[2017-05-26 21:44] VITALS: O2SAT 97
[2017-05-26] MEDS: INSULIN DETEMIR 100 UNITS/ML VIAL SQ SCH (23:14)
[2017-05-27] VITALS: BP 142/70; PULSE 68; RESP 20; TEMP 97.2; O2SAT 98
[2017-05-27] MEDS: SODIUM CHLOR 0.9% 1000 ML INJ 1,000 ML IV SCH ×4 (01:45→22:38)
[2017-05-27 05:03] LABS: AUTOMATED NEUTROPHIL # 5.4 TH/MM3 (1.8-7.7); BASOPHIL % 0.6 % (0.0-2.0); EOSINOPHIL # 0.1 TH/MM3 (0-0.4); EOSINOPHIL % 1.3 % (0.0-4.0); HEMATOCRIT 34.3 % (35.0-46.0); HEMOGLOBIN 10.8 GM/DL (11.6-15.3); LYMPH % 29.1 % (9.0-44.0); LYMPHOCYTE # 2.6 TH/MM3 (1.0-4.8); MEAN CORPUSCULAR HEMOGLOBIN 22.3 PG (27.0-34.0); MEAN CORPUSCULAR HGB CONC 31.5 % (32.0-36.0); MONOCYTE # 0.7 TH/MM3 (0-0.9); PLATELET COUNT 386 TH/MM3 (150-450); RED BLOOD COUNT 4.82 MIL/MM3 (4.00-5.30); RED CELL DISTRIBUTION WIDTH 17.5 % (11.6-17.2); WHITE BLOOD COUNT 8.8 TH/MM3 (4.0-11.0)
[2017-05-27 05:13] LABS: ALBUMIN 2.5 GM/DL (3.4-5.0); ALT (GPT) 24 U/L (10-53); AST (GOT) 23 U/L (15-37); BICARBONATE 30.9 MEQ/L (21.0-32.0); BLOOD UREA NITROGEN 6 MG/DL (7-18); CHLORIDE 101 MEQ/L (98-107); CREATININE 0.74 MG/DL (0.50-1.00); GLOMERULAR FILTRATION RATE 100 ML/MIN (>89); GLUCOSE,RANDOM 222 MG/DL (74-106); SODIUM (NA) 137 MEQ/L (136-145)
[2017-05-27 05:15] LABS: ALKALINE PHOSPHATASE 86 U/L (45-117); TOTAL BILIRUBIN ADULT 0.5 MG/DL (0.2-1.0)
[2017-05-27] MEDS: ACYCLOVIR INJ 1,000 MG in SODIUM CHLORIDE 0.9% INJ 150 ML IV SCH (05:22)
[2017-05-27] MEDS: CIPROFLOXACIN 0.3% OPTH OINT 3.5 GM TUBO EACH EYE SCH ×3 (05:26→22:56)
[2017-05-27 07:22] LABS: HSV 1,PCR Negative (Negative)
[2017-05-27] MEDS: INSULIN ASPART SUPPLEMENTAL SCALE SQ SCH ×4 (07:57→22:44)
[2017-05-27 08:00] VITALS: BP 154/69; PULSE 54; RESP 17; TEMP 97.1; O2SAT 96
[2017-05-27] MEDS: HYDROmorphone HCL PF 2 MG/ML VIAL IV PUSH PRN ×3 (08:00→23:55)
[2017-05-27 08:11] LABS: TOTAL PROTEIN 6.5 GM/DL (6.4-8.2)
[2017-05-27] MEDS: DOCUSATE SODIUM 50 MG/SENNA 8.6 MG TAB PO SCH ×2 (08:17→21:00)
[2017-05-27] MEDS: EMTRICITABINE/TENOFOVIR 200 MG/300 MG TAB PO SCH (08:17)
[2017-05-27] MEDS: RITONAVIR 100 MG TAB PO SCH (08:17)
[2017-05-27] MEDS: cloNIDine HCL 0.3 MG TAB PO SCH ×3 (08:17→17:53)
[2017-05-27] MEDS: SODIUM CHLORIDE 0.9% FLUSH 10 ML FLUSH IV FLUSH SCH ×2 (08:17→22:34)
[2017-05-27] MEDS ORDERED: PHARMACY ORDERED LAB ONE (08:45)
[2017-05-27 09:39] VITALS: O2SAT 96
--- NOTE | 2017-05-27 11:27 | HHI.FPPN ---
Subjective Remarks Patient seen and examined this morning. Patient reports her pain is improved today. Headache much improved. She did have some nausea and vomiting yesterday. Last bowel movement was yesterday. Some abdominal cramping. Was, denies any new chest pain, shortness of breath, leg pain. Overall, reports feeling better. Objective Vitals Vital Signs Date Time Temp Pulse Resp B/P (MAP) Pulse Ox O2 Delivery O2 Flow Rate FiO2 05/27/17 09:39 96 05/27/17 08:00 97.1 54 17 154/69 (97) 96 05/27/17 00:00 97.2 68 20 142/70 (94) 98 05/26/17 21:44 97 05/26/17 16:00 96.2 53 19 210/82 (124) 97 05/26/17 12:00 96.5 50 18 204/86 (125) 96 I/O 05/26/17 05/26/17 05/26/17 05/27/17 05/27/17 05/27/17 07:00 15:00 23:00 07:00 15:00 23:00 Intake Total 967.5 ml 240 ml 28648 ml Balance 967.5 ml 240 ml 09131 ml Intake Oral 0 ml 240 ml 600 ml IV Total 967.5 ml 23887 ml # Voids 4 3 1 # Bowel Movements 0 1 Result Diagram: 05/27/17 0420 05/27/17 0420 Imaging Last Impressions Head CT 05/25/17 0708 Signed Impressions: Service Date/Time: Thursday, May 25, 2017 07:54 - CONCLUSION: Negative noncontrast CT Kashif Mon MD Lumbar Puncture Fluoroscopy 05/25/17 0000 Signed Impressions: Service Date/Time: Thursday, May 25, 2017 09:44 - CONCLUSION: Uncomplicated fluoroscopically guided lumbar puncture. 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 There is a tiny enhancing nodule to the left of midline within the predominantly cystic lesion. Kevin Boss MD Objective Remarks GENERAL: This is a well-nourished, well-developed patient. Lying in bed. NAD SKIN: No rashes, ecchymoses. Cool and dry. Skin lesion on back noted to be draining pus. HEAD: Atraumatic. Improved scalp tenderness to palpation EYES: Pupils equal round and reactive. Extraocular motions intact. mild scleral icterus and eye drainage noted. No conjunctivae injection. Right superior quadrantanopia visual field deficit noted on exam. CARDIOVASCULAR: Regular rate and rhythm without murmurs, gallops, or rubs. RESPIRATORY: Clear to auscultation. Breath sounds equal bilaterally. No wheezes , rales, or rhonchi. GASTROINTESTINAL: Abdomen soft, non-tender, nondistended. No hepato-splenomegaly , or palpable masses. No guarding. MUSCULOSKELETAL: Extremities without clubbing, cyanosis, or edema. No joint tenderness, effusion, or edema noted. NEUROLOGICAL: Awake and alert. Motor and sensory grossly within normal limits. Normal speech. A/P Assessment and Plan 51-year-old female with history of HIV, diabetes presents with headache. LP performed due to concern for possible meningitis. Head CT negative for bleeding. We'll admit for workup and treatment. Discharge Planning Pending workup and clinical improvement Problem List: (1) Intractable headache ICD Codes: R51 - Headache Status: Acute Plan: Today: improving pain. Some pain with eye opening On admission: Head CT: negative WBC 9.2, CRP 1.38, ESR 40. Afebrile Normal neuro exam. LP performed in ED shows: 5 WBC, 5% PMN, 85% lymphocytes, 9% monocytes; 158 glucose, 42.9 protein CSF Gram stain negative. Given Vancomycin, Rocephin, Acyclovir in ED -CSF cultures no growth x 1 day -Blood cultures no growth x 1 day -Consult ID, appreciate recs -Stopped antibiotics -HSV negative -MRI w/ contract: Cystic mass within the sella measuring 2.11.41.6 cm which appears to result in some mass effect on upon the optic chiasm. There is a tiny enhancing nodule within the left of the mid line within the dominant cystic lesion -Neurosurgery consulted, appreciate recommendations -Conservative management with f/u testing in 6-12 months -Neuro checks -TSH borderline low, Prolactin borderline low - Pain regimen updated: Hydrocodone/acetaminophen 5 mg for pain 3-5; 10mg pain 6-10 Dilaudid for breakthrough (2) HIV (human immunodeficiency virus infection) ICD Codes: B20 - Human immunodeficiency virus [HIV] disease Status: Chronic Plan: History of HIV. States she is compliant with her meds. Unknown last CD4 count -Continue home meds -CD4 count pending -ID consulted (3) DM (diabetes mellitus) ICD Codes: E11.9 - Type 2 diabetes mellitus without complications Status: Acute Plan: On home Lantus 34units HS and Metformin. A1c 13.4. -Hold Metformin while inpatient -Continue Lantus -Low dose SSI w/ regular accuchecks (4) HTN (hypertension) ICD Codes: I10 - Essential (primary) hypertension Status: Acute Plan: Elevated during admission -Continue home clonidine -Add amlodipine -Monitor vitals (5) Skin lesion of back ICD Codes: L98.9 - Disorder of the skin and subcutaneous tissue, unspecified Status: Chronic Plan: She stated that she has history of back lesions that drain pus. Patient state these lesion occur intermittently since she received epidural injection for her last c/s Back lesion observed to be draining green-yellowish push on exam -Wound culture obtained, f/u results -MRI T-spine today (6) FEN Status: Acute Plan: Fluids: NS @ maintenance Electrolytes: wnl, continue to monitor Nutrition: regular diet DVT ppx: SCDs, early ambulation Problem Qualifiers (1) Intractable headache: Qualified Codes: R51 - Headache (2) DM (diabetes mellitus): (3) HTN (hypertension): Qualified Codes: I10 - Essential (primary) hypertension Navid Mary MD May 27, 2017 11:27
[2017-05-27 12:00] VITALS: BP 141/75; PULSE 63; RESP 17; TEMP 96.1; O2SAT 96
--- NOTE | 2017-05-27 13:03 | HHI.IDPN ---
Subjective Subjective Remarks c/o severe headache Did not have her MRI yday 04/29 refractory vomiting HSV negative no fever Antibiotics acyclovir - stopped Allergies: Coded Allergies: morphine (Unverified Allergy, Severe, 05/25/17) oxycodone (Unverified Allergy, Severe, N/V-HIVES, 05/25/17) Objective . Vital Signs Date Time Temp Pulse Resp B/P (MAP) Pulse Ox O2 Delivery O2 Flow Rate FiO2 05/27/17 09:39 96 05/27/17 08:00 97.1 54 17 154/69 (97) 96 05/27/17 00:00 97.2 68 20 142/70 (94) 98 05/26/17 21:44 97 05/26/17 16:00 96.2 53 19 210/82 (124) 97 . Laboratory Tests Test 05/26/17 06:17 05/27/17 04:20 White Blood Count 11.7 TH/MM3 8.8 TH/MM3 Red Blood Count 4.98 MIL/MM3 4.82 MIL/MM3 Hemoglobin 11.2 GM/DL 10.8 GM/DL Hematocrit 35.4 % 34.3 % Mean Corpuscular Volume 71.2 FL 71.0 FL Mean Corpuscular Hemoglobin 22.4 PG 22.3 PG Mean Corpuscular Hemoglobin Concent 31.5 % 31.5 % Red Cell Distribution Width 17.9 % 17.5 % Platelet Count 394 TH/MM3 386 TH/MM3 Mean Platelet Volume 8.0 FL 8.0 FL Neutrophils (%) (Auto) 82.8 % 61.0 % Lymphocytes (%) (Auto) 12.2 % 29.1 % Monocytes (%) (Auto) 4.5 % 8.0 % Eosinophils (%) (Auto) 0.0 % 1.3 % Basophils (%) (Auto) 0.5 % 0.6 % Neutrophils # (Auto) 9.7 TH/MM3 5.4 TH/MM3 Lymphocytes # (Auto) 1.4 TH/MM3 2.6 TH/MM3 Monocytes # (Auto) 0.5 TH/MM3 0.7 TH/MM3 Eosinophils # (Auto) 0.0 TH/MM3 0.1 TH/MM3 Basophils # (Auto) 0.1 TH/MM3 0.0 TH/MM3 CBC Comment DIFF FINAL DIFF FINAL Differential Comment Laboratory Tests Test 05/26/17 06:17 05/26/17 07:35 05/27/17 04:20 Blood Urea Nitrogen 6 MG/DL 6 MG/DL Creatinine 0.48 MG/DL 0.74 MG/DL Random Glucose 209 MG/DL 222 MG/DL Calcium Level 7.9 MG/DL 8.0 MG/DL Sodium Level 138 MEQ/L 137 MEQ/L Potassium Level 3.4 MEQ/L 3.2 MEQ/L Chloride Level 102 MEQ/L 101 MEQ/L Carbon Dioxide Level 26.4 MEQ/L 30.9 MEQ/L Anion Gap 10 MEQ/L 5 MEQ/L Estimat Glomerular Filtration Rate 165 ML/MIN 100 ML/MIN Hemoglobin A1c 13.4 % Thyroid Stimulating Hormone 3rd Gen 0.607 uIU/ML Prolactin 4.4 ng/mL Total Protein 6.5 GM/DL Albumin 2.5 GM/DL Alkaline Phosphatase 86 U/L Aspartate Amino Transf (AST/SGOT) 23 U/L Alanine Aminotransferase (ALT/SGPT) 24 U/L Total Bilirubin 0.5 MG/DL Microbiology Date/Time Source Procedure Growth Status 05/25/17 07:24 Blood Peripheral Aerobic Blood Culture - Preliminary NO GROWTH IN 2 DAYS Resulted 05/25/17 07:24 Blood Peripheral Anaerobic Blood Culture - Preliminary NO GROWTH IN 2 DAYS Resulted 05/25/17 07:10 Blood Peripheral Aerobic Blood Culture - Preliminary NO GROWTH IN 2 DAYS Resulted 05/25/17 07:10 Blood Peripheral Anaerobic Blood Culture - Preliminary NO GROWTH IN 2 DAYS Resulted 05/25/17 10:00 Cerebral Spinal Fluid Lumbar Puncture Gram Stain - Final Resulted 05/25/17 10:00 Cerebral Spinal Fluid Lumbar Puncture CSF Culture - Preliminary NO GROWTH IN 48 HOURS. Resulted 05/26/17 09:40 Wound Back Fungal Smear - Final NO FUNGAL ELEMENTS SEEN. Resulted 05/26/17 09:40 Wound Back Fungal Culture Pending Resulted 05/26/17 09:40 Wound Back Acid Fast Stain Pending Received 05/26/17 09:40 Wound Back Mycobacterial Culture Pending Received 05/26/17 09:40 Wound Back Gram Stain - Final Resulted 05/26/17 09:40 Wound Back Wound Culture Pending Resulted Imaging Last Impressions Head CT 05/25/17 0708 Signed Impressions: Service Date/Time: Thursday, May 25, 2017 07:54 - CONCLUSION: Negative noncontrast CT Kashif Mon MD Lumbar Puncture Fluoroscopy 05/25/17 0000 Signed Impressions: Service Date/Time: Thursday, May 25, 2017 09:44 - CONCLUSION: Uncomplicated fluoroscopically guided lumbar puncture. 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 There is a tiny enhancing nodule to the left of midline within the predominantly cystic lesion. Kevin Boss MD Physical Exam CONSTITUTIONAL/GENERAL: This is an obese female patient, in mild apparent distress. 2/ WINSLOW TUBES/LINES/DRAINS: SKIN: No jaundice, rashes, or lesions. Skin temperature appropriate. Not diaphoretic. HEAD: Atraumatic. Normocephalic. EYES: Pupils equal and round and reactive. Extraocular motions intact. No scleral icterus. No injection or drainage. Fundi not examined. ENT: Hearing grossly normal. Nose without bleeding or purulent drainage. Throat without visible erythema, exudates, masses, or lesions. No oral thrush NECK: Trachea midline. Supple, nontender. CARDIOVASCULAR: Regular rate and rhythm without murmurs, gallops, or rubs. No JVD. Peripheral pulses symmetric. RESPIRATORY/CHEST: Symmetric, unlabored respirations. Clear to auscultation. Breath sounds equal bilaterally. No wheezes, rales, or rhonchi. GASTROINTESTINAL: Abdomen soft, non-tender, nondistended. MUSCULOSKELETAL: Extremities without clubbing, cyanosis, or edema. NEUROLOGICAL: Awake and alert. Motor and sensory grossly within normal limits. Follows commands. Clear speech . Moves all extremities. PSYCHIATRIC: No obvious anxiety/depression. no apparent hallucinations or other psychotic thought process. Assessment & Plan Remarks A/P Borderline lymphocytic pleocytosis - CSF not cw abe meningitis HIV dz Sinus tract sspect chronic infection of T spine following injection brain mass- NS ff dc acyclovir MRI back fu Routine/AFB/fungal clx Older dghtr knws about pt's HIV dz, other family members unaware and pt does not want to disclose Jane Rocha MD May 27, 2017 13:03
[2017-05-27] MEDS ORDERED: GADODIAMIDE PF 287 MG/ML 20 ML VIAL (for RAD MRI) IVCONTRAST ONE (14:11)
--- NOTE | 2017-05-27 14:30 | RADRPT ---
EXAM DATE/TIME: 05/27/2017 13:56 [facility] COMPARISON: No previous studies available for comparison. INDICATIONS : Abscess. CONTRAST: 20 cc Omniscan (gadodiamide) IV MEDICAL HISTORY : HIV. Diabetes mellitus type 2. Chronic obstructive pulmonary disease. SURGICAL HISTORY : section. ENCOUNTER: Subsequent ACUITY: 3 day PAIN SCORE: 0/10 LOCATION: back. TECHNIQUE: Multiplanar multisequence MRI of the thoracic spine was performed. FINDINGS: VERTEBRA: Normal vertebral body height. Homogeneous marrow signal. ALIGNMENT: Normal. CORD: Normal position and configuration. POST CONTRAST: No abnormal areas of contrast enhancement seen. T1-T2: Normal. T2-T3: The thecal sac has a normal diameter. No evidence of disc bulge or protrusion. T3-T4: The thecal sac has a normal diameter. No evidence of disc bulge or protrusion. T4-T5: The thecal sac has a normal diameter. No evidence of disc bulge or protrusion. T5-T6: The thecal sac has a normal diameter. No evidence of disc bulge or protrusion. T6-T7: The thecal sac has a normal diameter. Mild central disc protrusion is present impingement intratheca l space slightly to the right of midline T7-T8: The thecal sac has a normal diameter. No evidence of disc bulge or protrusion. T8-T9: The thecal sac has a normal diameter. No evidence of disc bulge or protrusion. T9-T10: The thecal sac has a normal diameter. No evidence of disc bulge or protrusion. T10-T11: The thecal sac has a normal diameter. No evidence of disc bulge or protrusion. T11-T12: The thecal sac has a normal diameter. No evidence of disc bulge or protrusion. T12-L1: The thecal sac has a normal diameter. No evidence of disc bulge or protrusion. CONCLUSION: Central disc protrusion C6-C7 without significant spinal stenosis. No abnormal contrast enhancement. Fausto Ennis MD FACR on May 27, 2017 at 14:27 Board Certified Radiologist. This report was verified electronically.
[2017-05-27 16:00] VITALS: BP 149/76; PULSE 62; RESP 17; TEMP 96.2; O2SAT 95
[2017-05-27] MEDS: ACETAMINOPHEN/HYDROcodone 325 MG/10 MG TAB PO PRN ×2 (17:53→22:32)
[2017-05-27 19:53] LABS: CSF CRYPTOCOCCUS ANTIGEN NOT DETECTED (NEGATIVE)
[2017-05-27 20:00] VITALS: BP 117/58; PULSE 52; RESP 16; TEMP 97.6; O2SAT 100
[2017-05-27] MEDS: INSULIN DETEMIR 100 UNITS/ML VIAL SQ SCH (22:42)
[2017-05-28] VITALS (7 sets, daily range): BP systolic 127–150; BP diastolic 52–72; PULSE 45–59; RESP 16–17; TEMP 96.5–97.6; O2SAT 95–99
[2017-05-28] MEDS: SODIUM CHLOR 0.9% 1000 ML INJ 1,000 ML IV SCH ×4 (04:31→22:34)
[2017-05-28] MEDS: CIPROFLOXACIN 0.3% OPTH OINT 3.5 GM TUBO EACH EYE SCH ×3 (05:36→22:33)
[2017-05-28] MEDS: amLODIPine BESYLATE 5 MG TAB PO SCH (07:53)
[2017-05-28] MEDS: EMTRICITABINE/TENOFOVIR 200 MG/300 MG TAB PO SCH (07:53)
[2017-05-28] MEDS: RITONAVIR 100 MG TAB PO SCH (07:53)
[2017-05-28] MEDS: ACETAMINOPHEN/HYDROcodone 325 MG/10 MG TAB PO PRN ×4 (07:53→21:05)
[2017-05-28] MEDS: SODIUM CHLORIDE 0.9% FLUSH 10 ML FLUSH IV FLUSH SCH ×2 (07:54→22:36)
[2017-05-28] MEDS: cloNIDine HCL 0.3 MG TAB PO SCH ×3 (07:54→17:00)
[2017-05-28] MEDS: INSULIN ASPART SUPPLEMENTAL SCALE SQ SCH ×4 (07:54→21:00)
[2017-05-28] MEDS: DOCUSATE SODIUM 50 MG/SENNA 8.6 MG TAB PO SCH ×2 (07:54→22:36)
[2017-05-28 09:06] LABS: AUTOMATED NEUTROPHIL # 4.4 TH/MM3 (1.8-7.7); BASOPHIL % 0.5 % (0.0-2.0); EOSINOPHIL # 0.2 TH/MM3 (0-0.4); EOSINOPHIL % 2.8 % (0.0-4.0); HEMATOCRIT 34.2 % (35.0-46.0); HEMOGLOBIN 10.9 GM/DL (11.6-15.3); LYMPH % 28.9 % (9.0-44.0); LYMPHOCYTE # 2.3 TH/MM3 (1.0-4.8); MEAN CORPUSCULAR HEMOGLOBIN 22.7 PG (27.0-34.0); MEAN CORPUSCULAR HGB CONC 31.9 % (32.0-36.0); MEAN PLATELET VOLUME 7.9 FL (7.0-11.0); MONO % 11.7 % (0.0-8.0); MONOCYTE # 0.9 TH/MM3 (0-0.9); NEUT % 56.1 % (16.0-70.0); PLATELET COUNT 355 TH/MM3 (150-450); RED BLOOD COUNT 4.82 MIL/MM3 (4.00-5.30); RED CELL DISTRIBUTION WIDTH 17.9 % (11.6-17.2); WHITE BLOOD COUNT 7.9 TH/MM3 (4.0-11.0)
[2017-05-28 09:47] LABS: BICARBONATE 25.8 MEQ/L (21.0-32.0); CALCIUM 7.7 MG/DL (8.5-10.1); CREATININE 3.06 MG/DL (0.50-1.00)
[2017-05-28 10:21] LABS: CSF CRYPTOCOCCUS AG CONF ND (NOT DETECTD)
--- NOTE | 2017-05-28 12:29 | HHI.FPPN ---
Subjective Remarks Patient seen and examined at bedside this morning. No acute events overnight. Patient stated that her headache is still present however pain has improved currently 11/04. Patient also reports nausea and sore throat that started this morning. Denies any abdominal pain, fever, chills, vomiting. Objective Vitals Vital Signs Date Time Temp Pulse Resp B/P (MAP) Pulse Ox O2 Delivery O2 Flow Rate FiO2 05/28/17 10:10 95 05/28/17 08:00 96.5 50 17 131/52 (78) 95 05/28/17 00:00 97.4 55 16 127/61 (83) 99 05/27/17 20:00 97.6 52 16 117/58 (77) 100 05/27/17 20:00 97.6 52 16 117/58 (77) 100 05/27/17 16:00 96.2 62 17 149/76 (100) 95 I/O 05/27/17 05/27/17 05/27/17 05/28/17 05/28/17 05/28/17 07:00 15:00 23:00 07:00 15:00 23:00 Intake Total 64991 ml 3775 ml Balance 55195 ml 3775 ml Intake Oral 600 ml 1800 ml IV Total 69530 ml 1975 ml # Voids 1 2 1 # Bowel Movements 0 0 Result Diagram: 05/28/17 0753 05/28/17 0753 Objective Remarks GENERAL: This is a well-nourished, well-developed patient. Lying in bed. NAD SKIN: No rashes, ecchymoses. Cool and dry. Skin lesion on back noted to be draining pus. HEAD: Atraumatic. Improved scalp tenderness to palpation EYES: Pupils equal round and reactive. Extraocular motions intact. mild scleral icterus. eye drainage improved. No conjunctivae injection. Right superior quadrantanopia visual field deficit noted on exam. CARDIOVASCULAR: Regular rate and rhythm without murmurs, gallops, or rubs. RESPIRATORY: Clear to auscultation. Breath sounds equal bilaterally. No wheezes , rales, or rhonchi. GASTROINTESTINAL: Abdomen soft, non-tender, nondistended. No hepato-splenomegaly , or palpable masses. No guarding. MUSCULOSKELETAL: Extremities without clubbing, cyanosis, or edema. No joint tenderness, effusion, or edema noted. NEUROLOGICAL: Awake and alert. Motor and sensory grossly within normal limits. Normal speech. A/P Assessment and Plan 51-year-old female with history of HIV, diabetes presents with headache. LP performed due to concern for possible meningitis. Head CT negative for bleeding. Admitted for workup and treatment. Discharge Planning Pending workup and clinical improvement Problem List: (1) Intractable headache ICD Codes: R51 - Headache Status: Acute Plan: Today: improving pain. Some pain with eye opening On admission: Head CT: negative WBC 9.2, CRP 1.38, ESR 40. Afebrile Normal neuro exam. LP performed in ED shows: 5 WBC, 5% PMN, 85% lymphocytes, 9% monocytes; 158 glucose, 42.9 protein CSF Gram stain negative. 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 There is a tiny enhancing nodule within the left of the mid line within the dominant cystic lesion -Neurosurgery consulted, appreciate recommendations -Conservative management with f/u testing in 6-12 months -Neuro checks -TSH borderline low, Prolactin borderline low - Pain regimen updated: Hydrocodone/acetaminophen 5 mg for pain 3-5; 10mg pain 6-10 Dilaudid for breakthrough (2) HIV (human immunodeficiency virus infection) ICD Codes: B20 - Human immunodeficiency virus [HIV] disease Status: Chronic Plan: History of HIV. States she is compliant with her meds. Unknown last CD4 count -Continue home meds -Absolute CD4 count: 466 -ID consulted (3) DM (diabetes mellitus) ICD Codes: E11.9 - Type 2 diabetes mellitus without complications Status: Acute Plan: On home Lantus 34units HS and Metformin. A1c 13.4. -Hold Metformin while inpatient -Continue Lantus -Low dose SSI w/ regular accuchecks (4) HTN (hypertension) ICD Codes: I10 - Essential (primary) hypertension Status: Acute Plan: BP WNL -Continue home clonidine - amlodipine added -Monitor vitals (5) Skin lesion of back ICD Codes: L98.9 - Disorder of the skin and subcutaneous tissue, unspecified Status: Chronic Plan: She stated that she has history of back lesions that drain pus. Patient state these lesion occur intermittently since she received epidural injection for her last c/s Back lesion observed to be draining green-yellowish push on exam -Wound culture: Heavy growth of normal skin margi, no AFB or fungal elements seen. No leukocytosis on blood work. -MRI T-spine: Central disc protrusion C6-C7 without significant spinal stenosis. No abnormal contrast enhancement (6) Oral thrush ICD Codes: B37.0 - Candidal stomatitis Status: Acute Plan: Oral thrush noted on tongue, Pt with c/o sore throat pain -pt started on nystatin liq QID -continue to monitor (7) FEN Status: Acute Plan: Fluids: NS @ maintenance Electrolytes: wnl, continue to monitor Nutrition: regular diet DVT ppx: SCDs, early ambulation Problem Qualifiers (1) Intractable headache: Qualified Codes: R51 - Headache (2) DM (diabetes mellitus): (3) HTN (hypertension): Qualified Codes: I10 - Essential (primary) hypertension Debra Sihna MD, R1 May 28, 2017 12:29
[2017-05-28] MEDS: NYSTATIN SUSP 500,000 U/5 ML CUP SWISH-SWAL SCH ×3 (12:30→22:37)
[2017-05-28] MEDS: HYDROmorphone HCL PF 2 MG/ML VIAL IV PUSH PRN ×2 (13:45→22:31)
[2017-05-28] MEDS: INSULIN DETEMIR 100 UNITS/ML VIAL SQ SCH (21:00)
[2017-05-29] VITALS: BP 145/70; PULSE 52; RESP 16; TEMP 97.1; O2SAT 99
[2017-05-29] MEDS: CIPROFLOXACIN 0.3% OPTH OINT 3.5 GM TUBO EACH EYE SCH ×3 (04:23→21:06)
[2017-05-29] MEDS: SODIUM CHLOR 0.9% 1000 ML INJ 1,000 ML IV SCH ×3 (04:23→21:12)
[2017-05-29] MEDS: ACETAMINOPHEN/HYDROcodone 325 MG/10 MG TAB PO PRN ×3 (04:23→14:17)
[2017-05-29] MEDS: HYDROmorphone HCL PF 2 MG/ML VIAL IV PUSH PRN ×3 (05:53→21:05)
[2017-05-29 08:00] VITALS: BP 192/86; PULSE 50; RESP 17; TEMP 96.3; O2SAT 96
[2017-05-29] MEDS: INSULIN ASPART SUPPLEMENTAL SCALE SQ SCH ×4 (08:00→21:00)
[2017-05-29] MEDS: SODIUM CHLORIDE 0.9% FLUSH 10 ML FLUSH IV FLUSH SCH ×2 (09:00→21:05)
[2017-05-29] MEDS: EMTRICITABINE/TENOFOVIR 200 MG/300 MG TAB PO SCH (09:09)
[2017-05-29] MEDS: RITONAVIR 100 MG TAB PO SCH (09:09)
[2017-05-29] MEDS: cloNIDine HCL 0.3 MG TAB PO SCH ×3 (09:09→18:23)
[2017-05-29] MEDS: amLODIPine BESYLATE 5 MG TAB PO SCH (09:09)
[2017-05-29] MEDS: DOCUSATE SODIUM 50 MG/SENNA 8.6 MG TAB PO SCH ×2 (09:09→21:05)
[2017-05-29] MEDS: NYSTATIN SUSP 500,000 U/5 ML CUP SWISH-SWAL SCH ×4 (09:09→21:06)
[2017-05-29 12:00] VITALS: BP 168/72; PULSE 45; RESP 17; TEMP 96.6; O2SAT 99
--- NOTE | 2017-05-29 13:25 | HHI.FPPN ---
Subjective Remarks Pt seen and examined this morning. No acute events overnight. Patient reports her headache pain is improved, although still 10/10. Says the pain is mainly in the front part of her head now. Improved nausea and vomiting. Still some nausea. She is trying to eat breakfast this morning. Otherwise, denies any new complaints. Denies any fever/chills, chest pain, shortness of breath, leg pain. (Navid Mary MD) Objective Vitals Vital Signs Date Time Temp Pulse Resp B/P (MAP) Pulse Ox O2 Delivery O2 Flow Rate FiO2 05/29/17 12:00 96.6 45 17 168/72 (104) 99 05/29/17 08:00 96.3 50 17 192/86 (121) 96 05/29/17 00:00 97.1 52 16 145/70 (95) 99 05/28/17 20:00 97.0 59 16 148/72 (97) 98 05/28/17 16:30 50 05/28/17 16:00 97.6 45 17 149/64 (92) 95 I/O 05/28/17 05/28/17 05/28/17 05/29/17 05/29/17 05/29/17 07:00 15:00 23:00 07:00 15:00 23:00 Intake Total 3160 ml 1000 ml Balance 3160 ml 1000 ml Intake Oral 2160 ml 0 ml IV Total 1000 ml 1000 ml # Voids 1 3 2 # Bowel Movements 0 0 1 (Navid Mary MD) Result Diagram: 05/28/17 0753 05/28/17 0753 Objective Remarks GENERAL: This is a well-nourished, well-developed patient. Lying in bed. NAD SKIN: No rashes, ecchymoses. Cool and dry. Skin lesion on back noted to be draining pus. HEAD: Atraumatic. Improved scalp tenderness to palpation EYES: Pupils equal round and reactive. Extraocular motions intact. mild scleral icterus. eye drainage improved. No conjunctivae injection. Right superior quadrantanopia visual field deficit noted on exam yesterday CARDIOVASCULAR: Regular rate and rhythm without murmurs, gallops, or rubs. RESPIRATORY: Clear to auscultation. Breath sounds equal bilaterally. No wheezes , rales, or rhonchi. GASTROINTESTINAL: Abdomen soft, non-tender, nondistended. No hepato-splenomegaly , or palpable masses. No guarding. MUSCULOSKELETAL: Extremities without clubbing, cyanosis, or edema. No joint tenderness, effusion, or edema noted. NEUROLOGICAL: Awake and alert. Motor and sensory grossly within normal limits. Normal speech. (Navid Mary MD) A/P Assessment and Plan 51-year-old female with history of HIV, diabetes presents with headache. LP performed due to concern for possible meningitis. Head CT negative for bleeding. Admitted for workup and treatment. Discharge Planning Pending workup and clinical improvement (Navid Mary MD) Attending Attestation Pt. was seen and examined at approximately 1100 today; and discussed before and after with the medicine team. She was sound asleep and woke without difficulty. Describes her headache and frontal, radiating to both temporal regions. At the time of my evaluation, she was not having significant pain. I agree with the exam findings as noted above. Patient seen and examined. Case reviewed and discussed with the resident team. Agree with plan of care as discussed with me and documented in the resident note. (Marycarmen Parekh MD) Problem List: (1) Intractable headache ICD Codes: R51 - Headache Status: Acute Plan: Today: improving pain. Some pain with eye opening On admission: Head CT: negative WBC 9.2, CRP 1.38, ESR 40. Afebrile Normal neuro exam. LP performed in ED shows: 5 WBC, 5% PMN, 85% lymphocytes, 9% monocytes; 158 glucose, 42.9 protein CSF Gram stain negative. 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 There is a tiny enhancing nodule within the left of the mid line within the dominant cystic lesion -Neurosurgery consulted, appreciate recommendations -Conservative management with f/u testing in 6-12 months -Neuro checks -TSH borderline low, Prolactin borderline low - Pain regimen updated: Hydrocodone/acetaminophen 5 mg for pain 3-5; 10mg pain 6-10 Dilaudid for breakthrough (2) SADAF (acute kidney injury) ICD Codes: N17.9 - Acute kidney failure, unspecified Status: Acute Plan: Creatinine of 3.06 yesterday s/p MRI w/ contrast -Continue IVF -Avoid nephrotoxic agents -Trend kidney function (3) HIV (human immunodeficiency virus infection) ICD Codes: B20 - Human immunodeficiency virus [HIV] disease Status: Chronic Plan: History of HIV. States she is compliant with her meds. Unknown last CD4 count -Continue home meds -Absolute CD4 count: 466 -ID consulted (4) DM (diabetes mellitus) ICD Codes: E11.9 - Type 2 diabetes mellitus without complications Status: Acute Plan: On home Lantus 34units HS and Metformin. A1c 13.4. -Hold Metformin while inpatient -Continue Lantus -Low dose SSI w/ regular accuchecks (5) HTN (hypertension) ICD Codes: I10 - Essential (primary) hypertension Status: Acute Plan: BP WNL -Continue home clonidine - amlodipine added -Monitor vitals (6) Skin lesion of back ICD Codes: L98.9 - Disorder of the skin and subcutaneous tissue, unspecified Status: Chronic Plan: She stated that she has history of back lesions that drain pus. Patient state these lesion occur intermittently since she received epidural injection for her last c/s Back lesion observed to be draining green-yellowish push on exam -Wound culture: Heavy growth of normal skin margi, no AFB or fungal elements seen. No leukocytosis on blood work. -MRI T-spine: Central disc protrusion C6-C7 without significant spinal stenosis. No abnormal contrast enhancement (7) Oral thrush ICD Codes: B37.0 - Candidal stomatitis Status: Acute Plan: Oral thrush noted on tongue, Pt with c/o sore throat pain -pt started on nystatin liq QID -continue to monitor (8) FEN Status: Acute Plan: Fluids: IVF NS Electrolytes: wnl, continue to monitor Nutrition: regular diet DVT ppx: SCDs, early ambulation (Navid Mary MD) Problem Qualifiers (1) Intractable headache: Qualified Codes: R51 - Headache (2) DM (diabetes mellitus): (3) HTN (hypertension): Qualified Codes: I10 - Essential (primary) hypertension Navid Mary MD May 29, 2017 13:25 Marycarmen Parekh MD May 29, 2017 14:00
[2017-05-29] MEDS ORDERED: PROMETHAZINE INJ 25 MG/ML VIAL IM PRN (13:30)
[2017-05-29 14:08] LABS: HEMATOCRIT 31.9 % (35.0-46.0); HEMOGLOBIN 10.5 GM/DL (11.6-15.3); MEAN CELL VOLUME 71.7 FL (80.0-100.0); MEAN CORPUSCULAR HEMOGLOBIN 23.6 PG (27.0-34.0); MEAN CORPUSCULAR HGB CONC 32.9 % (32.0-36.0); MEAN PLATELET VOLUME 7.7 FL (7.0-11.0); PLATELET COUNT 366 TH/MM3 (150-450); RED BLOOD COUNT 4.46 MIL/MM3 (4.00-5.30); RED CELL DISTRIBUTION WIDTH 18.1 % (11.6-17.2)
[2017-05-29 14:24] LABS: CREATININE 4.59 MG/DL (0.50-1.00)
[2017-05-29 14:25] LABS: BICARBONATE 25.1 MEQ/L (21.0-32.0); CALCIUM 7.8 MG/DL (8.5-10.1)
[2017-05-29] MEDS ORDERED: CALCIUM CARBONATE 1.25 GM (CA 500 MG) TAB PO ONE (15:30)
[2017-05-29 16:00] VITALS: BP 170/75; PULSE 50; RESP 17; TEMP 95.8; O2SAT 97
[2017-05-29 20:00] VITALS: BP 140/62; PULSE 50; RESP 14; TEMP 97.9; O2SAT 100
[2017-05-29] MEDS: INSULIN DETEMIR 100 UNITS/ML VIAL SQ SCH (21:00)
[2017-05-29] MEDS: HEPARIN SODIUM - SQ 10,000 UNITS/ML VIAL SQ SCH (21:05)
[2017-05-30] MEDS: ACETAMINOPHEN/HYDROcodone 325 MG/10 MG TAB PO PRN ×3 (04:12→17:30)
[2017-05-30] MEDS: SODIUM CHLOR 0.9% 1000 ML INJ 1,000 ML IV SCH ×2 (04:15→07:56)
[2017-05-30] MEDS: CIPROFLOXACIN 0.3% OPTH OINT 3.5 GM TUBO EACH EYE SCH ×2 (04:15→14:00)
[2017-05-30] MEDS: SODIUM CHLORIDE 0.9% FLUSH 10 ML FLUSH IV FLUSH SCH ×2 (07:53→21:00)
[2017-05-30] MEDS: INSULIN ASPART SUPPLEMENTAL SCALE SQ SCH ×4 (07:55→21:00)
[2017-05-30] MEDS: cloNIDine HCL 0.3 MG TAB PO SCH ×3 (07:56→17:30)
[2017-05-30] MEDS: RITONAVIR 100 MG TAB PO SCH (07:56)
[2017-05-30] MEDS: EMTRICITABINE/TENOFOVIR 200 MG/300 MG TAB PO SCH (07:56)
[2017-05-30] MEDS: amLODIPine BESYLATE 5 MG TAB PO SCH (07:56)
[2017-05-30] MEDS: DOCUSATE SODIUM 50 MG/SENNA 8.6 MG TAB PO SCH ×2 (07:56→21:46)
[2017-05-30] MEDS: HEPARIN SODIUM - SQ 10,000 UNITS/ML VIAL SQ SCH ×2 (07:57→21:47)
[2017-05-30] MEDS: NYSTATIN SUSP 500,000 U/5 ML CUP SWISH-SWAL SCH ×5 (07:57→21:46)
[2017-05-30 08:00] VITALS: BP 170/77; PULSE 50; RESP 17; TEMP 97.4; O2SAT 97
--- NOTE | 2017-05-30 08:22 | PD.CONS ---
HPI Service Nephrology Consult Requested By Reason for Consult SADAF Primary Care Physician Josefina Riley MD History of Present Illness This patient was admitted on the with severe headache. Workup included LP, MRI. MRI revealed complex cyst in the sella. Patient has been seen by neurosurgery. No surgery is planned. Renal function was normal until 05/27/17. It worsened on the , worse again today. On IVF. She has received several doses of Toradol. Also was on IV Acyclovir. Urine output not recorded. Review of Systems Constitutional: COMPLAINS OF: Fatigue, DENIES: Fever Neurologic: COMPLAINS OF: Headache Past Family Social History Allergies: Coded Allergies: morphine (Unverified Allergy, Severe, 05/25/17) oxycodone (Unverified Allergy, Severe, N/V-HIVES, 05/25/17) Past Medical History HIVi DM HTN COPD Past Surgical History Reported Medications Active Keflex (Cephalexin) 500 Mg Cap 500 Mg PO Q12H 7 Days Reported Lantus Inj (Insulin Glargine) 1,000 Unit/10 Ml Vial 34 Units SQ HS Metformin (Metformin HCl) 1,000 Mg Tab 1,000 Mg PO DAILY With a meal Clonidine (Clonidine HCl) 0.3 Mg Tab 0.3 Mg PO TID Active Ordered Medications Current Medications Medications (Trade) Dose Ordered Sig/Stephanie Route Start Time Stop Time Status Last Admin Sodium Chloride 1,000 ml @ 155 mls/hr Q6H28M IV 05/25/17 14:00 05/30/17 07:56 (NS Flush) 2 ml UNSCH PRN IV FLUSH 05/25/17 13:30 (NS Flush) 2 ml BID IV FLUSH 05/25/17 21:00 05/29/17 21:05 (Zofran Inj) 4 mg Q6H PRN IVP 05/25/17 13:30 05/26/17 08:27 (Kindra-Colace) 1 tab BID PO 05/25/17 21:00 05/30/17 07:56 (Milk Of Magnesia Liq) 30 ml Q12H PRN PO 05/25/17 13:30 (Senokot) 17.2 mg Q12H PRN PO 05/25/17 13:30 (Dulcolax Supp) 10 mg DAILY PRN RECTAL 05/25/17 13:30 (Lactulose Liq) 30 ml DAILY PRN PO 05/25/17 13:30 (Catapres) 0.3 mg TID PO 05/25/17 18:00 05/30/17 07:56 (D50w (Vial) Inj) 50 ml UNSCH PRN IV PUSH 05/25/17 13:45 (Glucagon Inj) 1 mg UNSCH PRN OTHER 05/25/17 13:45 (NovoLOG SUPPLEMENTAL SCALE) 1 ACHS SLIDING SCALE SQ 05/25/17 17:00 05/28/17 21:00 (Levemir Inj) 15 units HS SQ 05/25/17 21:00 05/29/17 21:00 (Tylenol) 650 mg Q6H PRN PO 05/25/17 15:00 (Narcan Inj) 0.4 mg UNSCH PRN IV PUSH 05/25/17 15:00 (Norvir) 100 mg DAILY PO 05/26/17 09:00 05/30/17 07:56 (Truvada 200-300 Mg) 1 tab DAILY PO 05/26/17 09:00 05/30/17 07:56 (Dilaudid Pf Inj) 2 mg Q4H PRN IV PUSH 05/25/17 20:45 05/29/17 21:05 (Ciloxan 0.3% Opth Oint) 1 applic Q8HR EACH EYE 05/26/17 14:00 05/30/17 04:15 (Catapres) 0.1 mg Q6H PRN PO 05/26/17 22:00 (Willard 5-325 Mg) 1 tab Q4H PRN PO 05/27/17 14:30 (Willard 10-325 Mg) 1 tab Q4H PRN PO 05/27/17 14:30 05/30/17 04:12 (Norvasc) 5 mg DAILY PO 05/28/17 09:00 05/30/17 07:56 (Mycostatin Liq) 5 ml QID SWISH-SWAL 05/28/17 13:00 05/30/17 07:57 (Phenergan Inj) 25 mg Q6H PRN IM 05/29/17 13:30 05/29/17 14:17 (Heparin Inj) 5,000 units Q12HR SQ 05/29/17 21:00 05/30/17 07:57 Family History mother had uterine cancer Father had diabetes. Social History Smokes less than 1/2 ppd of Cigarettes. No ETOH or illicit drugs. Physical Exam Vital Signs Vital Signs Date Time Temp Pulse Resp B/P (MAP) Pulse Ox O2 Delivery O2 Flow Rate FiO2 05/29/17 20:00 97.9 50 14 140/62 (88) 100 05/29/17 16:00 95.8 50 17 170/75 (106) 97 05/29/17 12:00 96.6 45 17 168/72 (104) 99 Physical Exam GENERAL: obese, not in distress, comfortable, alert and oriented. SKIN: Warm and dry. HEAD: Normocephalic. EYES: No scleral icterus. No injection or drainage. NECK: Supple, trachea midline. No JVD or lymphadenopathy. CARDIOVASCULAR: Regular rate and rhythm without murmurs, gallops, or rubs. RESPIRATORY: Breath sounds equal bilaterally. No accessory muscle use. GASTROINTESTINAL: Abdomen soft, non-tender, nondistended. MUSCULOSKELETAL: No cyanosis, or edema. BACK: Nontender without obvious deformity. No CVA tenderness. Laboratory Laboratory Tests Test 05/29/17 13:43 White Blood Count 7.0 Red Blood Count 4.46 Hemoglobin 10.5 Hematocrit 31.9 Mean Corpuscular Volume 71.7 Mean Corpuscular Hemoglobin 23.6 Mean Corpuscular Hemoglobin Concent 32.9 Red Cell Distribution Width 18.1 Platelet Count 366 Mean Platelet Volume 7.7 Blood Urea Nitrogen 22 Creatinine 4.59 Random Glucose 142 Calcium Level 7.8 Sodium Level 139 Potassium Level 3.4 Chloride Level 107 Carbon Dioxide Level 25.1 Anion Gap 7 Estimat Glomerular Filtration Rate 12 Date/Time Source Procedure Growth Status 05/25/17 07:24 Blood Peripheral Aerobic Blood Culture - Preliminary NO GROWTH IN 4 DAYS Resulted 05/25/17 07:24 Blood Peripheral Anaerobic Blood Culture - Preliminary NO GROWTH IN 4 DAYS Resulted 05/25/17 10:00 Cerebral Spinal Fluid Lumbar Puncture Gram Stain - Final Complete 05/25/17 10:00 Cerebral Spinal Fluid Lumbar Puncture CSF Culture - Final NO GROWTH IN 72 HOURS Complete 05/26/17 09:40 Wound Back Fungal Smear - Final NO FUNGAL ELEMENTS SEEN. Resulted 05/26/17 09:40 Wound Back Fungal Culture Pending Resulted Result Diagram: 05/29/17 1343 05/29/17 1343 Assessment and Plan Problem List: (1) SADAF (acute kidney injury) ICD Codes: N17.9 - Acute kidney failure, unspecified Status: Acute Plan: Patient received IV Acyclovir also was on Toradol, both could be nephrotoxic. Obtain renal US and UA. Also obtain urine electrolytes. Patient is on Tenofovir which also can be potentially nephrotoxic (also causes proximal renal tubular dysfunction). Rule out obstruction. Taper off fluids. Avoid all nephrotoxins. Suspend anti retrovirals for the time being. May need dialysis. (2) Type 2 diabetes mellitus ICD Codes: E11.9 - Type 2 diabetes mellitus without complications Plan: Avoid Metformin. Insulin coverage. Watch for hypoglycemia due to renal failure. (3) HIV (human immunodeficiency virus infection) ICD Codes: B20 - Human immunodeficiency virus [HIV] disease Status: Chronic Plan: I have suspended anti retrovirals for the time being. (4) Intractable headache ICD Codes: R51 - Headache Status: Acute (5) HTN (hypertension) ICD Codes: I10 - Essential (primary) hypertension Status: Acute Plan: BP was high, now has improved. Continue Amlodipine. Assessment and Plan Thanks for the consult. Problem Qualifiers (1) Intractable headache: Qualified Codes: R51 - Headache (2) HTN (hypertension): Qualified Codes: I10 - Essential (primary) hypertension Jamir Stack MD May 30, 2017 08:22
--- NOTE | 2017-05-30 10:21 | RADRPT ---
EXAM DATE/TIME: 05/30/2017 09:17 [facility] COMPARISON: No previous studies available for comparison. INDICATIONS : Increased BUN and Creatinine. UTI. MEDICAL HISTORY : HIV. Diabetes mellitus type 2. Hypertension. COPD SURGICAL HISTORY : section. ENCOUNTER: Initial ACUITY: 2 days PAIN SCORE: 0/10 LOCATION: Bilateral flank MEASUREMENTS: RIGHT KIDNEY: 13.4 x 6.3 x 6.4 cm LEFT KIDNEY: 14.4 x 6.4 x 6.9 cm FINDINGS: RIGHT KIDNEY: No hydronephrosis. 1.6 cm lesion lower pole could be angiomyolipoma no hydronephrosis LEFT KIDNEY: Renal cortex is normal in thickness and echotexture. No hydronephrosis, stone, or mass. BLADDER: Within normal limits given the degree of distension. CONCLUSION: Normal-sized kidneys without hydronephrosis. Fausto Ennis MD FACR on May 30, 2017 at 10:17 Board Certified Radiologist. This report was verified electronically.
--- NOTE | 2017-05-30 11:36 | HHI.FPPN ---
Subjective Remarks Patient seen and examined by the team this morning. She reports pain and headaches have improved by still present. Vomiting has resolved, she is still nauseous at time. She is also complaining of thirst. She has not had a bowel movement in four days. No chest pain, cough or shortness of breath. Objective Vitals Vital Signs Date Time Temp Pulse Resp B/P (MAP) Pulse Ox O2 Delivery O2 Flow Rate FiO2 05/30/17 08:00 97.4 50 17 170/77 (108) 97 05/29/17 20:00 97.9 50 14 140/62 (88) 100 05/29/17 16:00 95.8 50 17 170/75 (106) 97 05/29/17 12:00 96.6 45 17 168/72 (104) 99 I/O 05/29/17 05/29/17 05/29/17 05/30/17 05/30/17 05/30/17 07:00 15:00 23:00 07:00 15:00 23:00 Intake Total 1000 ml 360 ml 240 ml Balance 1000 ml 360 ml 240 ml Intake Oral 0 ml 360 ml 240 ml IV Total 1000 ml # Voids 2 2 1 # Bowel Movements 1 0 0 Result Diagram: 05/29/17 1343 05/29/17 1343 Objective Remarks GENERAL: This is a well-nourished, well-developed obese patient. Lying in bed. NAD SKIN: No rashes, ecchymoses. Cool and dry. Skin lesion on back noted to be draining pus. HEAD: Atraumatic. Improved scalp tenderness to palpation EYES: Pupils equal round and reactive. Extraocular motions intact. mild scleral icterus. eye drainage improved. No conjunctivae injection. Right superior quadrantanopia visual field deficit noted on exam CARDIOVASCULAR: Regular rate and rhythm without murmurs, gallops, or rubs. RESPIRATORY: Clear to auscultation. Breath sounds equal bilaterally. No wheezes , rales, or rhonchi. GASTROINTESTINAL: Abdomen soft, non-tender, nondistended. No hepato-splenomegaly , or palpable masses. No guarding. MUSCULOSKELETAL: Extremities without clubbing, cyanosis, or edema. No joint tenderness, effusion, or edema noted. NEUROLOGICAL: Awake and alert. Motor and sensory grossly within normal limits. Normal speech. A/P Assessment and Plan 51-year-old female with history of HIV, diabetes presents with headache. LP performed due to concern for possible meningitis. Head CT negative for bleeding. Admitted for workup and treatment. Discharge Planning Pending workup and clinical improvement Attending Attestation Note written by Massiel Sánchez, MS4 Reviewed by Debra Sinha PGY1 Problem List: (1) Intractable headache ICD Codes: R51 - Headache Status: Acute Plan: Today: improving pain. Continues to have pain with eye opening. Worsening renal functioning. On admission: Head CT: negative WBC 9.2, CRP 1.38, ESR 40. Afebrile Normal neuro exam. LP performed in ED shows: 5 WBC, 5% PMN, 85% lymphocytes, 9% monocytes; 158 glucose, 42.9 protein CSF Gram stain negative. 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 There is a tiny enhancing nodule within the left of the mid line within the dominant cystic lesion -Neurosurgery consulted, appreciate recommendations -Conservative management with f/u testing in 6-12 months -Neuro checks -TSH borderline low, Prolactin borderline low - Pain regimen updated: Hydrocodone/acetaminophen 5 mg for pain 3-5; 10mg pain 6-10 Dilaudid for breakthrough (2) SADAF (acute kidney injury) ICD Codes: N17.9 - Acute kidney failure, unspecified Status: Acute Plan: Creatinine of 4.59 today -Nephrology consulted -recommends holding nephrotoxic agents including ritonavir and tenofovir -tapering IVF -Renal U/S 3/5- small cyst R kidney, otherwise normal, no hydronephrosis -may need dialysis (3) HIV (human immunodeficiency virus infection) ICD Codes: B20 - Human immunodeficiency virus [HIV] disease Status: Chronic Plan: History of HIV. States she is compliant with her meds. Unknown last CD4 count -Holding antiretrovirals until kidney function improves. -Absolute CD4 count: 466 -ID consulted (4) DM (diabetes mellitus) ICD Codes: E11.9 - Type 2 diabetes mellitus without complications Status: Acute Plan: On home Lantus 34units HS and Metformin. A1c 13.4. -Hold Metformin while inpatient -Continue Lantus -Low dose SSI w/ regular accuchecks (5) HTN (hypertension) ICD Codes: I10 - Essential (primary) hypertension Status: Acute Plan: BP WNL -Continue home clonidine - amlodipine added -Monitor vitals (6) Skin lesion of back ICD Codes: L98.9 - Disorder of the skin and subcutaneous tissue, unspecified Status: Chronic Plan: She stated that she has history of back lesions that drain pus. Patient state these lesion occur intermittently since she received epidural injection for her last c/s Back lesion observed to be draining green-yellowish push on exam -Wound culture: Heavy growth of normal skin margi, no AFB or fungal elements seen. No leukocytosis on blood work. -MRI T-spine: Central disc protrusion C6-C7 without significant spinal stenosis. No abnormal contrast enhancement (7) Oral thrush ICD Codes: B37.0 - Candidal stomatitis Status: Acute Plan: Oral thrush noted on tongue, Pt with c/o sore throat pain -pt started on nystatin liq QID -continue to monitor (8) FEN Status: Acute Plan: Fluids: IVF NS Electrolytes: wnl, continue to monitor Nutrition: diabetic diet DVT ppx: SCDs, early ambulation Problem Qualifiers (1) Intractable headache: Qualified Codes: R51 - Headache (2) DM (diabetes mellitus): (3) HTN (hypertension): Qualified Codes: I10 - Essential (primary) hypertension Debra Sinha MD, R1 May 30, 2017 11:36
[2017-05-30 11:43] LABS: HEMATOCRIT 33.7 % (35.0-46.0); HEMOGLOBIN 10.5 GM/DL (11.6-15.3); MEAN CELL VOLUME 71.7 FL (80.0-100.0); MEAN CORPUSCULAR HEMOGLOBIN 22.4 PG (27.0-34.0); MEAN CORPUSCULAR HGB CONC 31.2 % (32.0-36.0); MEAN PLATELET VOLUME 7.8 FL (7.0-11.0); PLATELET COUNT 330 TH/MM3 (150-450); RED BLOOD COUNT 4.69 MIL/MM3 (4.00-5.30); RED CELL DISTRIBUTION WIDTH 17.8 % (11.6-17.2); WHITE BLOOD COUNT 7.3 TH/MM3 (4.0-11.0)
[2017-05-30 12:00] VITALS: BP 156/70; PULSE 46; RESP 17; TEMP 97; O2SAT 97
[2017-05-30 12:06] LABS: BICARBONATE 20.9 MEQ/L (21.0-32.0); CALCIUM 7.9 MG/DL (8.5-10.1); CREATININE 4.38 MG/DL (0.50-1.00)
[2017-05-30] MEDS: HYDROmorphone HCL PF 2 MG/ML VIAL IV PUSH PRN ×2 (12:13→21:46)
[2017-05-30 12:32] LABS: BILIRUBIN, URINE NEG (NEG); BLOOD, URINE MOD (NEG); GLUCOSE,URINE NEG (NEG); KETONE, URINE NEG (NEG); NITRITE,URINE NEG (NEG); PH, URINE 5.5 (5.0-8.5); SQUAMOUS EPITHELIAL CELL URINE 2 /hpf (0-5); URINE COLOR LIGHT-YELLOW (YELLW/STRAW); URINE LEUKOCYTE ESTERASE NEG (NEG)
[2017-05-30] MEDS: cloNIDine HCL 0.1 MG TAB PO PRN (15:34)
[2017-05-30] MEDS: MAGNESIUM HYDROXIDE SUSP 30 ML CUP PO PRN (15:34)
[2017-05-30 16:00] VITALS: BP 191/91; PULSE 50; RESP 19; TEMP 95.9; O2SAT 100
[2017-05-30 16:30] VITALS: BP 166/77
[2017-05-30 20:00] VITALS: BP 144/72; PULSE 46; RESP 18; TEMP 96.5; O2SAT 98
[2017-05-30] MEDS: INSULIN DETEMIR 100 UNITS/ML VIAL SQ SCH (21:00)
[2017-05-31] VITALS (7 sets, daily range): BP systolic 131–198; BP diastolic 64–84; PULSE 45–49; RESP 18–19; TEMP 96.5–97.6; O2SAT 95–100
[2017-05-31] MEDS: MAGNESIUM HYDROXIDE SUSP 30 ML CUP PO PRN (05:31)
[2017-05-31] MEDS: cloNIDine HCL 0.1 MG TAB PO PRN (05:53)
[2017-05-31] MEDS: ACETAMINOPHEN/HYDROcodone 325 MG/10 MG TAB PO PRN ×2 (07:35→19:35)
[2017-05-31] MEDS: HEPARIN SODIUM - SQ 10,000 UNITS/ML VIAL SQ SCH ×2 (07:38→19:40)
[2017-05-31] MEDS: INSULIN ASPART SUPPLEMENTAL SCALE SQ SCH ×4 (07:45→21:00)
[2017-05-31] MEDS: SODIUM CHLORIDE 0.9% FLUSH 10 ML FLUSH IV FLUSH SCH ×2 (07:46→19:45)
[2017-05-31] MEDS: cloNIDine HCL 0.3 MG TAB PO SCH ×2 (07:46→12:06)
[2017-05-31] MEDS: amLODIPine BESYLATE 5 MG TAB PO SCH (07:46)
[2017-05-31] MEDS: DOCUSATE SODIUM 50 MG/SENNA 8.6 MG TAB PO SCH ×2 (07:46→19:48)
[2017-05-31] MEDS: NYSTATIN SUSP 500,000 U/5 ML CUP SWISH-SWAL SCH ×4 (07:47→19:48)
--- NOTE | 2017-05-31 08:38 | HHI.NPPN ---
Subjective Interval History patient was seen and examined. BP is high. Given total of 0.4 mg PO of Clonidine. She is bradycardic. Non oliguric. Creatinine slightly better yesterday on recheck. Labs are pending today. Renal US is unremarkable. Review of Systems General Constitutional: Fatigue Neuro Neuro: Headache Objective Data Data Vital Signs Date Time Temp Pulse Resp B/P (MAP) Pulse Ox O2 Delivery O2 Flow Rate FiO2 05/31/17 04:00 96.5 48 18 191/84 (119) 96 05/31/17 02:58 131/80 (97) 05/31/17 00:00 97.5 49 18 198/81 (120) 97 05/30/17 20:00 96.5 46 18 144/72 (96) 98 05/30/17 16:30 166/77 (106) 05/30/17 16:00 95.9 50 19 191/91 (124) 100 05/30/17 12:00 97.0 46 17 156/70 (98) 97 -: 05/30/17 1110 05/30/17 1110 Physical Exam General Appearance: Well Developed, No Acute Distress Neck Neck Exam: Neck Supple Pulmonary Resp Exam: Clear Bilaterally, Breath Sounds Equal Cardiology CV Exam: Regular, Normal Sinus Rhythm Gastrointestinal/Abdomen GI Exam: Soft, Non-Tender Musculoskeletal MS Exam: Joints Intact Extremeties Extremities Exam: No Edema Neurologic Neuro Exam: Alert, Moving All Extremities Assessment/Plan Problem List: (1) SADAF (acute kidney injury) ICD Codes: N17.9 - Acute kidney failure, unspecified Status: Acute Plan: Patient received IV Acyclovir also was on Toradol, both could be nephrotoxic. Renal US negative for hydronephrosis. Patient is on Tenofovir which also can be potentially nephrotoxic (also causes proximal renal tubular dysfunction). Taper off fluids. Avoid all nephrotoxins. Suspend anti retrovirals for the time being. No immediate need for dialysis: may not need it if creatinine is better. I had ordered CPK, but results not available. (2) Type 2 diabetes mellitus ICD Codes: E11.9 - Type 2 diabetes mellitus without complications Plan: Avoid Metformin. Insulin coverage. Watch for hypoglycemia due to renal failure. (3) HIV (human immunodeficiency virus infection) ICD Codes: B20 - Human immunodeficiency virus [HIV] disease Status: Chronic Plan: I have suspended anti retrovirals for the time being. (4) Intractable headache ICD Codes: R51 - Headache Status: Acute (5) HTN (hypertension) ICD Codes: I10 - Essential (primary) hypertension Status: Acute Plan: BP is high, along with bradycardia. Increase Amlodipine. Obtain EKG. Consider reducing the dose of Clonidine: it is a negatively chronotropic drug. I have added Hydralazine. Problem Qualifiers (1) Intractable headache: Qualified Codes: R51 - Headache (2) HTN (hypertension): Qualified Codes: I10 - Essential (primary) hypertension Jamir Stack MD May 31, 2017 08:38
[2017-05-31 08:57] LABS: ALBUMIN 2.7 GM/DL (3.4-5.0); BICARBONATE 26.4 MEQ/L (21.0-32.0); CALCIUM 8.5 MG/DL (8.5-10.1); CREATININE 3.72 MG/DL (0.50-1.00)
[2017-05-31 09:06] LABS: PHOSPHORUS 3.8 MG/DL (2.5-4.9)
--- NOTE | 2017-05-31 09:33 | HHI.FPPN ---
Subjective Remarks Patient seen and examined by team this morning. She is doing much better. Pain has subsided significantly and headache is minimal. No bowel movements yet despite laxatives. Will try to eat oatmeal this morning. No nausea or vomiting overnight. She is complaining of some dizziness when ambulating to bathroom and attributes this to her low heart rate. No chest pain or shortness of breath. (Debra Sinha MD, R1) Objective Vitals Vital Signs Date Time Temp Pulse Resp B/P (MAP) Pulse Ox O2 Delivery O2 Flow Rate FiO2 05/31/17 08:00 97.3 45 19 184/81 (115) 98 05/31/17 04:00 96.5 48 18 191/84 (119) 96 05/31/17 02:58 131/80 (97) 05/31/17 00:00 97.5 49 18 198/81 (120) 97 05/30/17 20:00 96.5 46 18 144/72 (96) 98 05/30/17 16:30 166/77 (106) 05/30/17 16:00 95.9 50 19 191/91 (124) 100 05/30/17 12:00 97.0 46 17 156/70 (98) 97 I/O 05/30/17 05/30/17 05/30/17 05/31/17 05/31/17 05/31/17 07:00 15:00 23:00 07:00 15:00 23:00 Intake Total 240 ml 1750 ml Output Total 1100 ml Balance 240 ml 650 ml Intake Oral 240 ml 750 ml IV Total 1000 ml Output Urine Total 1100 ml # Voids 1 1 # Bowel Movements 0 0 (Debra Sinha MD, R1) Result Diagram: 05/30/17 1110 05/31/17 0817 Objective Remarks GENERAL: This is a well-nourished, well-developed obese patient. Lying in bed. NAD SKIN: No rashes, ecchymoses. Cool and dry. Skin lesion on back noted to be draining pus. HEAD: Atraumatic. Normocephalic EYES: Pupils equal round and reactive. Extraocular motions intact. mild scleral icterus. eye drainage improved. No conjunctivae injection. Right superior quadrantanopia visual field deficit noted on exam CARDIOVASCULAR: Bradycardic, no murmurs, gallops, or rubs. RESPIRATORY: Clear to auscultation. Breath sounds equal bilaterally. No wheezes , rales, or rhonchi. GASTROINTESTINAL: Abdomen soft, non-tender, nondistended. No hepato-splenomegaly , or palpable masses. No guarding. Decreased bowel sounds MUSCULOSKELETAL: Extremities without clubbing, cyanosis, or edema. No joint tenderness, effusion, or edema noted. NEUROLOGICAL: Awake and alert. Motor and sensory grossly within normal limits. Normal speech. (Debra Sinha MD, R1) A/P Assessment and Plan 51-year-old female with history of HIV, diabetes presents with headache. LP performed due to concern for possible meningitis. Head CT negative for bleeding. Admitted for workup and treatment. Patient's pain is improving, now monitoring kidney function. Discharge Planning Pending workup and clinical improvement Attending Attestation Note written by Massiel Sánchez MS4 Reviewed by Debra Sinha, PGY1 (Debra Sinha MD, R1) Attending Attestation Patient seen and examined this afternoon after discussing her with the medicine team she does report that her headache is a little better and she is sitting up eating some fruit. She understands that we want to make certain that her creatinine is trending down before we send her home. Renal ultrasound was negative. I agree with the exam as noted above. Patient seen and examined. Case reviewed and discussed with the resident team. Agree with plan of care as discussed with me and documented in the resident note. (Marycarmen Parekh MD) Problem List: (1) Intractable headache ICD Codes: R51 - Headache Status: Acute Plan: Today: Headache and eye pain much improved. Monitoring renal functioning. On admission: Head CT: negative WBC 9.2, CRP 1.38, ESR 40. Afebrile Normal neuro exam. LP performed in ED shows: 5 WBC, 5% PMN, 85% lymphocytes, 9% monocytes; 158 glucose, 42.9 protein CSF Gram stain negative. 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 There is a tiny enhancing nodule within the left of the mid line within the dominant cystic lesion -Neurosurgery consulted, appreciate recommendations -Conservative management with f/u testing in 6-12 months -Neuro checks -TSH borderline low, Prolactin borderline low - Pain regimen updated: Hydrocodone/acetaminophen 5 mg for pain 3-5; 10mg pain 6-10 Dilaudid for breakthrough (2) SADAF (acute kidney injury) ICD Codes: N17.9 - Acute kidney failure, unspecified Status: Acute Plan: Creatinine of 3.72, improved from 4.38 yesterday -Nephrology consulted -recommends holding nephrotoxic agents including ritonavir and tenofovir - IVF discontinued -Renal U/S 3/5- small cyst R kidney, otherwise normal, no hydronephrosis -No emergent need for dialysis at the moment, Cr improving, will continue to monitor Cr -CPK 120 WNL (3) HIV (human immunodeficiency virus infection) ICD Codes: B20 - Human immunodeficiency virus [HIV] disease Status: Chronic Plan: History of HIV. States she is compliant with her meds. Unknown last CD4 count -Holding antiretrovirals until kidney function improves. -Absolute CD4 count: 466 -ID following (4) DM (diabetes mellitus) ICD Codes: E11.9 - Type 2 diabetes mellitus without complications Status: Acute Plan: On home Lantus 34units HS and Metformin. A1c 13.4. BG this am 127 -Hold Metformin while inpatient -levemir 15 units HS -Low dose SSI w/ regular accuchecks (5) HTN (hypertension) ICD Codes: I10 - Essential (primary) hypertension Status: Acute Plan: BP trending higher -Heart rate in 40s -EKG ordered -Increased amlodipine to 10 mg -Hydralazine added 25mg Q8hr -Nephrology recommends decreasing Clonidine as it is negatively inotropic (6) Skin lesion of back ICD Codes: L98.9 - Disorder of the skin and subcutaneous tissue, unspecified Status: Chronic Plan: She stated that she has history of back lesions that drain pus. Patient state these lesion occur intermittently since she received epidural injection for her last c/s Back lesion observed to be draining green-yellowish push on exam -Wound culture: Heavy growth of normal skin margi, no AFB or fungal elements seen. No leukocytosis on blood work. -MRI T-spine: Central disc protrusion C6-C7 without significant spinal stenosis. No abnormal contrast enhancement (7) Oral thrush ICD Codes: B37.0 - Candidal stomatitis Status: Acute Plan: Oral thrush noted on tongue, Pt with c/o sore throat pain -pt started on nystatin liq QID -continue to monitor (8) FEN Status: Acute Plan: Fluids: IVF NS on hold for now Electrolytes: Continue to monitor Nutrition: diabetic diet DVT ppx: SCDs, heparin SQ Q12h, early ambulation (Debra Sinha MD, R1) Problem Qualifiers (1) Intractable headache: Qualified Codes: R51 - Headache (2) DM (diabetes mellitus): (3) HTN (hypertension): Qualified Codes: I10 - Essential (primary) hypertension Debra Sinha MD, R1 May 31, 2017 09:33 Marycarmen Parekh MD May 31, 2017 15:18
[2017-05-31] MEDS: HYDROmorphone HCL PF 2 MG/ML VIAL IV PUSH PRN (12:07)
[2017-05-31] MEDS: hydrALAZINE HCL 25 MG TAB PO SCH ×2 (13:51→22:45)
[2017-05-31] MEDS: cloNIDine HCL 0.2 MG TAB PO SCH (17:25)
--- NOTE | 2017-05-31 17:30 | HHI.IDPN ---
Subjective Subjective Remarks SADAF noted. Creatinine peaked 2 days ago @ 4.59, her HAART including tenopfovir was stopped and creatinine slowly improving Antibiotics acyclovir - stopped Allergies: Coded Allergies: morphine (Unverified Allergy, Severe, 05/25/17) oxycodone (Unverified Allergy, Severe, N/V-HIVES, 05/25/17) Objective . Vital Signs Date Time Temp Pulse Resp B/P (MAP) Pulse Ox O2 Delivery O2 Flow Rate FiO2 05/31/17 16:00 97.0 47 19 164/64 (97) 100 05/31/17 12:00 97.6 45 19 158/68 (98) 99 05/31/17 08:00 97.3 45 19 184/81 (115) 98 05/31/17 04:00 96.5 48 18 191/84 (119) 96 05/31/17 02:58 131/80 (97) 05/31/17 00:00 97.5 49 18 198/81 (120) 97 05/30/17 20:00 96.5 46 18 144/72 (96) 98 05/31/17 05/31/17 06/01/17 15:00 23:00 07:00 Intake Total 120 ml Balance 120 ml Intake Oral 120 ml . Laboratory Tests Test 05/30/17 11:10 White Blood Count 7.3 TH/MM3 Red Blood Count 4.69 MIL/MM3 Hemoglobin 10.5 GM/DL Hematocrit 33.7 % Mean Corpuscular Volume 71.7 FL Mean Corpuscular Hemoglobin 22.4 PG Mean Corpuscular Hemoglobin Concent 31.2 % Red Cell Distribution Width 17.8 % Platelet Count 330 TH/MM3 Mean Platelet Volume 7.8 FL Laboratory Tests Test 05/30/17 11:10 05/31/17 08:17 Blood Urea Nitrogen 24 MG/DL 23 MG/DL Creatinine 4.38 MG/DL 3.72 MG/DL Random Glucose 101 MG/DL 119 MG/DL Calcium Level 7.9 MG/DL 8.5 MG/DL Sodium Level 142 MEQ/L 144 MEQ/L Potassium Level 3.5 MEQ/L 3.5 MEQ/L Chloride Level 110 MEQ/L 109 MEQ/L Carbon Dioxide Level 20.9 MEQ/L 26.4 MEQ/L Anion Gap 11 MEQ/L 9 MEQ/L Estimat Glomerular Filtration Rate 13 ML/MIN 16 ML/MIN Albumin 2.7 GM/DL Phosphorus Level 3.8 MG/DL Total Creatine Kinase 120 U/L Imaging Last Impressions Renal Ultrasound 05/30/17 0000 Signed Impressions: Service Date/Time: Tuesday, May 30, 2017 09:17 - CONCLUSION: Normal-sized kidneys without hydronephrosis. Fausto Ennis MD FACR Thoracic Spine MRI 05/27/17 0000 Signed Impressions: Service Date/Time: Saturday, May 27, 2017 13:56 - CONCLUSION: Central disc protrusion C6-C7 without significant spinal stenosis. No abnormal contrast enhancement. Fausto Ennis MD FACR Head CT 05/25/17 0708 Signed Impressions: Service Date/Time: Thursday, May 25, 2017 07:54 - CONCLUSION: Negative noncontrast CT Kashif Mon MD Lumbar Puncture Fluoroscopy 05/25/17 0000 Signed Impressions: Service Date/Time: Thursday, May 25, 2017 09:44 - CONCLUSION: Uncomplicated fluoroscopically guided lumbar puncture. 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 There is a tiny enhancing nodule to the left of midline within the predominantly cystic lesion. Kevin Boss MD Physical Exam CONSTITUTIONAL/GENERAL: This is an obese female patient, in mild apparent distress. 2/2 [place] TUBES/LINES/DRAINS: SKIN: No jaundice, rashes, or lesions. Skin temperature appropriate. Not diaphoretic. ENT: Hearing grossly normal. Nose without bleeding or purulent drainage. Throat without visible erythema, exudates, masses, or lesions. No oral thrush CARDIOVASCULAR: Regular rate and rhythm without murmurs, gallops, or rubs. No JVD. Peripheral pulses symmetric. RESPIRATORY/CHEST: Symmetric, unlabored respirations. Clear to auscultation. Breath sounds equal bilaterally. No wheezes, rales, or rhonchi. GASTROINTESTINAL: Abdomen soft, non-tender, nondistended. MUSCULOSKELETAL: Extremities without clubbing, cyanosis, or edema. NEUROLOGICAL: Awake and alert. Motor and sensory grossly within normal limits. Follows commands. Clear speech . Moves all extremities. PSYCHIATRIC: No obvious anxiety/depression. no apparent hallucinations or other psychotic thought process. Assessment & Plan Remarks A/P Borderline lymphocytic pleocytosis - CSF not cw abe meningitis HIV dz Sinus tract sspect chronic infection of T spine following injection: MRI negative for infection brain mass- NS ff ARF - new issue; suspect TENOFOVIR cont to hold HAART while in-pt she will need to follow with her HIV provider as o/p to start new HAART combo chk urine eos Older dghtr knws about pt's HIV dz, other family members unaware and pt does not want to disclose Jane Rocha MD May 31, 2017 17:30
[2017-05-31] MEDS: INSULIN DETEMIR 100 UNITS/ML VIAL SQ SCH (22:30)
[2017-06-01 04:00] VITALS: BP 175/70; PULSE 49; RESP 18; TEMP 98.5; O2SAT 97
[2017-06-01] MEDS: hydrALAZINE HCL 25 MG TAB PO SCH (05:36)
--- NOTE | 2017-06-01 07:05 | EKG ---
Date Performed: 05/31/2017 Time Performed: 10:42:55 PTAGE: 51 years EKG: SINUS BRADYCARDIA BORDERLINE ECG Compared to PREVIOUS TRACING , the sinus rate is slower. PREVIOUS TRACIN03/19/2017 21.52 DOCTOR: Too Trotter Interpretating Date/Time 06/01/2017 07:03:36
[2017-06-01 08:00] VITALS: BP 197/83; PULSE 50; RESP 17; TEMP 98; O2SAT 97
[2017-06-01] MEDS: INSULIN ASPART SUPPLEMENTAL SCALE SQ SCH ×4 (08:00→21:00)
--- NOTE | 2017-06-01 08:06 | HHI.NPPN ---
Subjective Interval History renal function has improved. BP control has improved. Review of Systems General Constitutional: Fatigue Neuro Neuro: Headache Objective Data Data Vital Signs Date Time Temp Pulse Resp B/P (MAP) Pulse Ox O2 Delivery O2 Flow Rate FiO2 06/01/17 04:00 98.5 49 18 175/70 (105) 97 05/31/17 22:47 18 05/31/17 19:17 97.0 45 18 187/79 (115) 95 05/31/17 16:00 97.0 47 19 164/64 (97) 100 05/31/17 12:00 97.6 45 19 158/68 (98) 99 -: 05/30/17 1110 05/31/17 0817 Physical Exam General Appearance: Well Developed, No Acute Distress Neck Neck Exam: Neck Supple Pulmonary Resp Exam: Clear Bilaterally, Breath Sounds Equal Cardiology CV Exam: Regular, Normal Sinus Rhythm Gastrointestinal/Abdomen GI Exam: Soft, Non-Tender Musculoskeletal MS Exam: Joints Intact Extremeties Extremities Exam: No Edema Neurologic Neuro Exam: Alert, Moving All Extremities Assessment/Plan Problem List: (1) SADAF (acute kidney injury) ICD Codes: N17.9 - Acute kidney failure, unspecified Status: Acute Plan: Patient received IV Acyclovir also was on Toradol, both could be nephrotoxic. Renal US negative for hydronephrosis. Patient is on Tenofovir which also can be potentially nephrotoxic (also causes proximal renal tubular dysfunction). Off of IVF. Avoid all nephrotoxins. Suspend anti retrovirals for the time being. No need for dialysis. Renal function has improved. (2) Type 2 diabetes mellitus ICD Codes: E11.9 - Type 2 diabetes mellitus without complications Plan: Avoid Metformin. Insulin coverage. Watch for hypoglycemia due to renal failure. (3) HIV (human immunodeficiency virus infection) ICD Codes: B20 - Human immunodeficiency virus [HIV] disease Status: Chronic Plan: I have suspended anti retrovirals for the time being. Can be restarted once renal function improves. (4) Intractable headache ICD Codes: R51 - Headache Status: Acute Plan: Improved. (5) HTN (hypertension) ICD Codes: I10 - Essential (primary) hypertension Status: Acute Plan: Remains somewhat bradycardic. EKG revealed sinus bradycardia. Consider tapering down Clonidine and increasing the dose of Hydralazine. Increased Amlodipine. Plan She can be discharged from renal standpoint. Recommend followup with her HIV doctor in 1 week. Problem Qualifiers (1) Intractable headache: Qualified Codes: R51 - Headache (2) HTN (hypertension): Qualified Codes: I10 - Essential (primary) hypertension Jamir Stack MD Jun 01, 2017 08:06
--- NOTE | 2017-06-01 08:24 | HHI.FPPN ---
Subjective Remarks Pt seen and examined this morning. No acute events overnight. Pt reports mild headache this morning, hasn't received pain meds yet. Blood pressure continues to be elevated overnight. Some general malaise, but overall doing well. Bowel movement yesterday. Denies any chest pain, SOB, leg pain. (Navid Mary MD) Objective Vitals Vital Signs Date Time Temp Pulse Resp B/P (MAP) Pulse Ox O2 Delivery O2 Flow Rate FiO2 06/01/17 04:00 98.5 49 18 175/70 (105) 97 05/31/17 22:47 18 05/31/17 19:17 97.0 45 18 187/79 (115) 95 05/31/17 16:00 97.0 47 19 164/64 (97) 100 05/31/17 12:00 97.6 45 19 158/68 (98) 99 I/O 05/31/17 05/31/17 05/31/17 06/01/17 06/01/17 06/01/17 07:00 15:00 23:00 07:00 15:00 23:00 Intake Total 120 ml 1000 ml Output Total 750 ml Balance 120 ml 250 ml Intake Oral 120 ml 1000 ml IV Total 0 ml Output Urine Total 750 ml (Navid Mary MD) Result Diagram: 05/30/17 1110 05/31/17 0817 Imaging Last Impressions Renal Ultrasound 05/30/17 0000 Signed Impressions: Service Date/Time: Tuesday, May 30, 2017 09:17 - CONCLUSION: Normal-sized kidneys without hydronephrosis. Fausto Ennis MD FACR Thoracic Spine MRI 05/27/17 0000 Signed Impressions: Service Date/Time: Saturday, May 27, 2017 13:56 - CONCLUSION: Central disc protrusion C6-C7 without significant spinal stenosis. No abnormal contrast enhancement. Fausto Ennis MD FACR Head CT 05/25/17 0708 Signed Impressions: Service Date/Time: Thursday, May 25, 2017 07:54 - CONCLUSION: Negative noncontrast CT Kashif Mon MD Lumbar Puncture Fluoroscopy 05/25/17 0000 Signed Impressions: Service Date/Time: Thursday, May 25, 2017 09:44 - CONCLUSION: Uncomplicated fluoroscopically guided lumbar puncture. 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 There is a tiny enhancing nodule to the left of midline within the predominantly cystic lesion. Kevin Boss MD Objective Remarks GENERAL: This is a well-nourished, well-developed obese patient. Lying in bed. NAD EYES: Pupils equal round and reactive. Extraocular motions intact. No conjunctivae injection. CARDIOVASCULAR: Bradycardic, no murmurs, gallops, or rubs. RESPIRATORY: Clear to auscultation. Breath sounds equal bilaterally. No wheezes , rales, or rhonchi. GASTROINTESTINAL: Abdomen soft, non-tender, nondistended. No hepato-splenomegaly , or palpable masses. No guarding. MUSCULOSKELETAL: Extremities without clubbing, cyanosis, or edema. NEUROLOGICAL: Awake and alert. Motor and sensory grossly within normal limits. Normal speech. (Navid Mary MD) A/P Assessment and Plan 51-year-old female with history of HIV, diabetes presents with headache. LP performed due to concern for possible meningitis. Head CT negative for bleeding. Admitted for workup and treatment. Patient's pain is improving, now monitoring kidney function. Discharge Planning Pending workup and clinical improvement (Navid Mary MD) Attending Attestation Feeling some better, but still with a mild headache. Kidney function gradually improving. Patient seen and examined. Case reviewed and discussed with the resident team. Agree with plan of care as discussed with me and documented in the resident note. (Marycarmen Parekh MD) Problem List: (1) Intractable headache ICD Codes: R51 - Headache Status: Acute Plan: Improved. Monitoring renal functioning. On admission: Head CT: negative WBC 9.2, CRP 1.38, ESR 40. Afebrile Normal neuro exam. LP performed in ED shows: 5 WBC, 5% PMN, 85% lymphocytes, 9% monocytes; 158 glucose, 42.9 protein CSF Gram stain negative. 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 There is a tiny enhancing nodule within the left of the mid line within the dominant cystic lesion -Neurosurgery consulted, appreciate recommendations -Conservative management with f/u testing in 6-12 months -Neuro checks -TSH borderline low, Prolactin borderline low - Pain regimen updated: Hydrocodone/acetaminophen 5 mg for pain 3-5; 10mg pain 6-10 Dilaudid for breakthrough (2) SADAF (acute kidney injury) ICD Codes: N17.9 - Acute kidney failure, unspecified Status: Acute Plan: Improving -Nephrology consulted -recommends holding nephrotoxic agents including ritonavir and tenofovir - IVF discontinued -Renal U/S 05/30- small cyst R kidney, otherwise normal, no hydronephrosis -No emergent need for dialysis at the moment, Cr improving, will continue to monitor Cr -CPK 120 WNL (3) HIV (human immunodeficiency virus infection) ICD Codes: B20 - Human immunodeficiency virus [HIV] disease Status: Chronic Plan: History of HIV. States she is compliant with her meds. -Holding antiretrovirals until kidney function improves. F/u with HIV Dr outpatient -Absolute CD4 count: 466 -ID following (4) DM (diabetes mellitus) ICD Codes: E11.9 - Type 2 diabetes mellitus without complications Status: Acute Plan: On home Lantus 34units HS and Metformin. A1c 13.4. -Hold Metformin while inpatient -levemir 15 units HS -Low dose SSI w/ regular accuchecks (5) HTN (hypertension) ICD Codes: I10 - Essential (primary) hypertension Status: Acute Plan: BP trending higher EKG 05/31: Sinus bradycardia -Amlodipine to 10 mg -Increase Hydralazine 50mg Q8hr -Nephrology recommends decreasing Clonidine as it is negatively inotropic (6) Skin lesion of back ICD Codes: L98.9 - Disorder of the skin and subcutaneous tissue, unspecified Status: Chronic Plan: She stated that she has history of back lesions that drain pus. Patient state these lesion occur intermittently since she received epidural injection for her last c/s Back lesion observed to be draining green-yellowish push on exam -Wound culture: Heavy growth of normal skin margi, no AFB or fungal elements seen. No leukocytosis on blood work. -MRI T-spine: Central disc protrusion C6-C7 without significant spinal stenosis. No abnormal contrast enhancement (7) Oral thrush ICD Codes: B37.0 - Candidal stomatitis Status: Acute Plan: Oral thrush noted on tongue, Pt with c/o sore throat pain -pt started on nystatin liq QID -continue to monitor (8) FEN Status: Acute Plan: Fluids: IVF NS on hold for now Electrolytes: Continue to monitor Nutrition: diabetic diet DVT ppx: SCDs, heparin SQ Q12h (Navid Mary MD) Problem Qualifiers (1) Intractable headache: Qualified Codes: R51 - Headache (2) DM (diabetes mellitus): (3) HTN (hypertension): Qualified Codes: I10 - Essential (primary) hypertension Navid Mary MD Jun 01, 2017 08:24 Marycarmen Parekh MD Jun 01, 2017 14:49
[2017-06-01] MEDS: NYSTATIN SUSP 500,000 U/5 ML CUP SWISH-SWAL SCH ×4 (09:00→21:00)
[2017-06-01 09:05] LABS: ALBUMIN 2.8 GM/DL (3.4-5.0); BICARBONATE 26.7 MEQ/L (21.0-32.0); CALCIUM 8.2 MG/DL (8.5-10.1); CREATININE 2.65 MG/DL (0.50-1.00); PHOSPHORUS 2.6 MG/DL (2.5-4.9)
[2017-06-01] MEDS: HEPARIN SODIUM - SQ 10,000 UNITS/ML VIAL SQ SCH ×2 (09:12→22:56)
[2017-06-01] MEDS: DOCUSATE SODIUM 50 MG/SENNA 8.6 MG TAB PO SCH ×2 (09:12→21:00)
[2017-06-01] MEDS: cloNIDine HCL 0.2 MG TAB PO SCH ×3 (09:12→17:48)
[2017-06-01] MEDS: SODIUM CHLORIDE 0.9% FLUSH 10 ML FLUSH IV FLUSH SCH ×2 (09:13→23:04)
[2017-06-01] MEDS ORDERED: POTASSIUM CHLORIDE 10 MEQ CONTROLLED RELEASE TAB PO ONE (09:45)
[2017-06-01] MEDS ORDERED: CALCIUM CARBONATE 1.25 GM (CA 500 MG) TAB PO ONE (09:45)
[2017-06-01 12:00] VITALS: BP 177/74; PULSE 49; RESP 16; TEMP 97.8; O2SAT 98
[2017-06-01] MEDS: ACETAMINOPHEN/HYDROcodone 325 MG/10 MG TAB PO PRN ×2 (12:59→22:57)
[2017-06-01] MEDS: hydrALAZINE HCL 50 MG TAB PO SCH ×2 (14:52→22:56)
[2017-06-01 16:00] VITALS: BP 174/79; PULSE 52; RESP 16; TEMP 96.7; O2SAT 97
[2017-06-01 20:00] VITALS: BP 177/73; PULSE 50; RESP 18; TEMP 98.1; O2SAT 95
[2017-06-02] VITALS: BP 207/91; PULSE 51; RESP 20; TEMP 97.5; O2SAT 96
[2017-06-02] MEDS: hydrALAZINE HCL 50 MG TAB PO SCH ×3 (05:30→21:51)
[2017-06-02 06:34] LABS: BICARBONATE 27.1 MEQ/L (21.0-32.0); CALCIUM 9.1 MG/DL (8.5-10.1); CREATININE 1.92 MG/DL (0.50-1.00)
--- NOTE | 2017-06-02 07:53 | HHI.NPPN ---
Subjective Interval History Renal function continues to improve. BP is high. She continues to complain of headache. Review of Systems General Constitutional: Fatigue Neuro Neuro: Headache Objective Data Data Vital Signs Date Time Temp Pulse Resp B/P (MAP) Pulse Ox O2 Delivery O2 Flow Rate FiO2 06/02/17 01:18 18 06/02/17 00:00 97.5 51 20 207/91 (129) 96 06/01/17 20:00 98.1 50 18 177/73 (107) 95 06/01/17 16:00 96.7 52 16 174/79 (110) 97 06/01/17 12:00 97.8 49 16 177/74 (108) 98 06/01/17 08:00 98.0 50 17 197/83 (121) 97 -: 05/30/17 1110 06/02/17 0525 Physical Exam General Appearance: Well Developed, No Acute Distress Neck Neck Exam: Neck Supple Pulmonary Resp Exam: Clear Bilaterally, Breath Sounds Equal Cardiology CV Exam: Regular, Normal Sinus Rhythm Gastrointestinal/Abdomen GI Exam: Soft, Non-Tender Musculoskeletal MS Exam: Joints Intact Extremeties Extremities Exam: No Edema Neurologic Neuro Exam: Alert, Moving All Extremities Assessment/Plan Problem List: (1) SADAF (acute kidney injury) ICD Codes: N17.9 - Acute kidney failure, unspecified Status: Acute Plan: Patient received IV Acyclovir also was on Toradol, both could be nephrotoxic. Renal US negative for hydronephrosis. Patient is on Tenofovir which also can be potentially nephrotoxic (also causes proximal renal tubular dysfunction). Off of IVF. Avoid all nephrotoxins. Suspend anti retrovirals for the time being. No need for dialysis. Renal function has improved. (2) Type 2 diabetes mellitus ICD Codes: E11.9 - Type 2 diabetes mellitus without complications Plan: Avoid Metformin. Insulin coverage. Watch for hypoglycemia due to renal failure. (3) HIV (human immunodeficiency virus infection) ICD Codes: B20 - Human immunodeficiency virus [HIV] disease Status: Chronic Plan: I have suspended anti retrovirals for the time being. Can be restarted once renal function improves. (4) Intractable headache ICD Codes: R51 - Headache Status: Acute Plan: Patient continues to have headache. Could this be due to mass in the sella? She had MRI that revealed complex mass in the sella. (5) HTN (hypertension) ICD Codes: I10 - Essential (primary) hypertension Status: Acute Plan: BP remains high. Could be due to headache? Start Valsartan. Obtain Aldosterone/PRA ratio. Obtain plasma fractionated metanephrine. Monitor. Problem Qualifiers (1) Intractable headache: Qualified Codes: R51 - Headache (2) HTN (hypertension): Qualified Codes: I10 - Essential (primary) hypertension Jamir Stack MD Jun 02, 2017 07:53
[2017-06-02 07:58] VITALS: BP 175/76; PULSE 53; RESP 18; TEMP 97.6; O2SAT 98
[2017-06-02] MEDS: INSULIN ASPART SUPPLEMENTAL SCALE SQ SCH ×4 (08:00→19:56)
[2017-06-02] MEDS: DOCUSATE SODIUM 50 MG/SENNA 8.6 MG TAB PO SCH ×2 (09:00→19:55)
[2017-06-02] MEDS: NYSTATIN SUSP 500,000 U/5 ML CUP SWISH-SWAL SCH ×4 (09:00→19:56)
--- NOTE | 2017-06-02 09:40 | HHI.FPPN ---
Subjective Remarks Patient seen and examined by team this morning. The patient is complaining of increase headache pain this morning. The headache is like a band across her forehead. Its not as bad as it initially was at admission though. Patient is not having any visual disturbances, shortness of breath, chest pain, dizziness, nausea, or problems with constipation or diarrhea. She has been having bowel movements. (Debra Sinha MD, R1) Objective Vitals Vital Signs Date Time Temp Pulse Resp B/P (MAP) Pulse Ox O2 Delivery O2 Flow Rate FiO2 06/02/17 07:58 97.6 53 18 175/76 (109) 98 06/02/17 01:18 18 06/02/17 00:00 97.5 51 20 207/91 (129) 96 06/01/17 20:00 98.1 50 18 177/73 (107) 95 06/01/17 16:00 96.7 52 16 174/79 (110) 97 06/01/17 12:00 97.8 49 16 177/74 (108) 98 I/O 06/01/17 06/01/17 06/01/17 06/02/17 06/02/17 06/02/17 07:00 15:00 23:00 07:00 15:00 23:00 Intake Total 1200 ml 960 ml Balance 1200 ml 960 ml Intake Oral 1200 ml 960 ml # Voids 9 2 # Bowel Movements 0 (Debra Sinha MD, R1) Result Diagram: 05/30/17 1110 06/02/17 0525 Objective Remarks GENERAL: This is a well-nourished, well-developed obese patient. Lying in bed. NAD EYES: Pupils equal round and reactive. Extraocular motions intact. No conjunctivae injection. CARDIOVASCULAR: Bradycardic, no murmurs, gallops, or rubs. RESPIRATORY: Clear to auscultation. Breath sounds equal bilaterally. No wheezes , rales, or rhonchi. GASTROINTESTINAL: Abdomen soft, non-tender, nondistended. No hepato-splenomegaly , or palpable masses. No guarding. MUSCULOSKELETAL: Extremities without clubbing, cyanosis, or edema. NEUROLOGICAL: Awake and alert. Motor and sensory grossly within normal limits. Normal speech. (Debra Sinha MD, R1) A/P Assessment and Plan 51-year-old female with history of HIV, diabetes presents with headache. LP performed due to concern for possible meningitis. Head CT negative for bleeding. Admitted for workup and treatment. Patient's renal function has improved, blood pressure continues to be a problem. The patient continues to have headaches. Discharge Planning Pending workup and clinical improvement Attending Attestation Note written by Massiel Sánchez MS4 FSU Reviewed by Debra Sinha, PGY-1 (Debra Sinha MD, R1) Attending Attestation Patient was seen and examined by me this morning at approximately 9:15 AM. She complains of worsening of her frontal and bitemporal headache today. Declines warm compresses or cold compress for this. Reports pain in the dorsum of her left hand after venipuncture this morning. She understands that her kidney function is improving. We will try IV acetaminophen in an effort to get better control of her headache and thus her blood pressure. Patient seen and examined. Case reviewed and discussed with the resident team. Agree with plan of care as discussed with me and documented in the resident note. (Marycarmen Parekh MD) Problem List: (1) Intractable headache ICD Codes: R51 - Headache Status: Acute Plan: Headache worse today. Will try to adjust pain medications. On admission: Head CT: negative WBC 9.2, CRP 1.38, ESR 40. Afebrile Normal neuro exam. LP performed in ED shows: 5 WBC, 5% PMN, 85% lymphocytes, 9% monocytes; 158 glucose, 42.9 protein CSF Gram stain negative. 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 There is a tiny enhancing nodule within the left of the mid line within the dominant cystic lesion -Neurosurgery consulted, appreciate recommendations -Conservative management with f/u testing in 6-12 months -Neuro checks -TSH borderline low, Prolactin borderline low - Pain regimen updated 06/02: -hold: Hydrocodone/acetaminophen 5 mg for pain 3-5; 10mg pain 6-10 -Dilaudid for breakthrough -Add IV Tylenol (2) SADAF (acute kidney injury) ICD Codes: N17.9 - Acute kidney failure, unspecified Status: Acute Plan: Improving -Nephrology consulted -recommends holding nephrotoxic agents including ritonavir and tenofovir - IVF discontinued -Renal U/S 05/30- small cyst R kidney, otherwise normal, no hydronephrosis -No emergent need for dialysis at the moment, Cr improving, will continue to monitor Cr -CPK 120 WNL (3) HIV (human immunodeficiency virus infection) ICD Codes: B20 - Human immunodeficiency virus [HIV] disease Status: Chronic Plan: History of HIV. States she is compliant with her meds. -Holding antiretrovirals until kidney function improves. F/u with HIV Dr outpatient -Absolute CD4 count: 466 -ID following (4) DM (diabetes mellitus) ICD Codes: E11.9 - Type 2 diabetes mellitus without complications Status: Acute Plan: On home Lantus 34units HS and Metformin. A1c 13.4. -Hold Metformin while inpatient -levemir 15 units HS -Low dose SSI w/ regular accuchecks (5) HTN (hypertension) ICD Codes: I10 - Essential (primary) hypertension Status: Acute Plan: BP trending higher, will attempt adjusting patient's pain medications. EKG 05/31: Sinus bradycardia -Amlodipine to 10 mg -Increase Hydralazine 50mg Q8hr -Valsartan added 160 mg PO daily (06/02) 06/02 -plasma metanephrines and, renin and aldosterone levels pending per nephrology recommendations (6) Skin lesion of back ICD Codes: L98.9 - Disorder of the skin and subcutaneous tissue, unspecified Status: Chronic Plan: She stated that she has history of back lesions that drain pus. Patient state these lesion occur intermittently since she received epidural injection for her last c/s Back lesion observed to be draining green-yellowish push on exam -Wound culture: Heavy growth of normal skin margi, no AFB or fungal elements seen. No leukocytosis on blood work. -MRI T-spine: Central disc protrusion C6-C7 without significant spinal stenosis. No abnormal contrast enhancement (7) Oral thrush ICD Codes: B37.0 - Candidal stomatitis Status: Acute Plan: Oral thrush noted on tongue, Pt with c/o sore throat pain -pt started on nystatin liq QID -continue to monitor (8) FEN Status: Acute Plan: Fluids: IVF NS on hold for now Electrolytes: Continue to monitor Nutrition: diabetic diet DVT ppx: SCDs, heparin SQ Q12h (Debra Sinha MD, R1) Problem Qualifiers (1) Intractable headache: Qualified Codes: R51 - Headache (2) DM (diabetes mellitus): (3) HTN (hypertension): Qualified Codes: I10 - Essential (primary) hypertension Debra Sinha MD, R1 Jun 02, 2017 09:40 Marycarmen Parekh MD Jun 02, 2017 10:43
[2017-06-02] MEDS: cloNIDine HCL 0.2 MG TAB PO SCH ×3 (10:46→18:09)
[2017-06-02] MEDS: VALSARTAN 160 MG TAB PO SCH (10:46)
[2017-06-02] MEDS: ACETAMINOPHEN 1000 MG/100 ML 100 ML IV SCH ×3 (10:46→21:51)
[2017-06-02] MEDS: HEPARIN SODIUM - SQ 10,000 UNITS/ML VIAL SQ SCH ×2 (10:46→19:55)
[2017-06-02] MEDS: SODIUM CHLORIDE 0.9% FLUSH 10 ML FLUSH IV FLUSH SCH ×2 (10:56→19:54)
[2017-06-02 12:00] VITALS: BP 162/73; PULSE 57; RESP 16; TEMP 97.8; O2SAT 100
[2017-06-02] MEDS: HYDROmorphone HCL PF 2 MG/ML VIAL IV PUSH PRN (15:55)
[2017-06-02 16:00] VITALS: BP 141/67; PULSE 55; RESP 16; TEMP 96.6; O2SAT 99
[2017-06-02] MEDS: ONDANSETRON HCL 4 MG/2 ML VIAL IVP PRN (16:02)
[2017-06-02] MEDS: INSULIN DETEMIR 100 UNITS/ML VIAL SQ SCH (19:55)
[2017-06-02 20:00] VITALS: BP 144/65; PULSE 59; RESP 16; TEMP 98; O2SAT 98
[2017-06-02] MEDS: ACETAMINOPHEN/HYDROcodone 325 MG/5 MG TAB PO PRN (23:40)
[2017-06-03] VITALS: BP 173/74; PULSE 50; RESP 18; TEMP 97; O2SAT 95
[2017-06-03] MEDS: ACETAMINOPHEN 1000 MG/100 ML 100 ML IV SCH (03:41)
[2017-06-03 04:00] VITALS: BP 139/63; PULSE 50; RESP 16; O2SAT 91
[2017-06-03] MEDS: hydrALAZINE HCL 50 MG TAB PO SCH (04:54)
[2017-06-03 06:58] LABS: HEMATOCRIT 35.9 % (35.0-46.0); HEMOGLOBIN 11.4 GM/DL (11.6-15.3); MEAN CELL VOLUME 71.9 FL (80.0-100.0); MEAN CORPUSCULAR HEMOGLOBIN 22.8 PG (27.0-34.0); MEAN CORPUSCULAR HGB CONC 31.8 % (32.0-36.0); MEAN PLATELET VOLUME 7.4 FL (7.0-11.0); PLATELET COUNT 388 TH/MM3 (150-450); RED CELL DISTRIBUTION WIDTH 18.3 % (11.6-17.2); WHITE BLOOD COUNT 6.5 TH/MM3 (4.0-11.0)
[2017-06-03 07:21] LABS: BICARBONATE 28.3 MEQ/L (21.0-32.0); CALCIUM 8.8 MG/DL (8.5-10.1); CREATININE 1.46 MG/DL (0.50-1.00)
[2017-06-03 08:00] VITALS: BP 135/63; PULSE 53; RESP 18; TEMP 97.7; O2SAT 94
[2017-06-03] MEDS: INSULIN ASPART SUPPLEMENTAL SCALE SQ SCH ×2 (08:00→12:00)
[2017-06-03] MEDS: VALSARTAN 160 MG TAB PO SCH (08:21)
[2017-06-03] MEDS: DOCUSATE SODIUM 50 MG/SENNA 8.6 MG TAB PO SCH ×2 (08:21→08:24)
[2017-06-03] MEDS: cloNIDine HCL 0.2 MG TAB PO SCH (08:21)
[2017-06-03] MEDS: HEPARIN SODIUM - SQ 10,000 UNITS/ML VIAL SQ SCH (08:23)
[2017-06-03] MEDS: NYSTATIN SUSP 500,000 U/5 ML CUP SWISH-SWAL SCH (08:24)
[2017-06-03] MEDS: SODIUM CHLORIDE 0.9% FLUSH 10 ML FLUSH IV FLUSH SCH (08:24)
[2017-06-03] MEDS: ACETAMINOPHEN/HYDROcodone 325 MG/5 MG TAB PO PRN (09:54)
--- NOTE | 2017-06-03 11:00 | HHI.FPPN ---
Subjective Remarks Patient seen and examined by team this morning. She states she is feeling much better today, [place] pain is well controlled. She is ready to go home. No chest pain , shortness of breath, nausea, vomiting, diarrhea or constipation. Was able to watch TV yesterday for the first time since her headaches started. (Debra Sinha MD, R1) Objective Vitals Vital Signs Date Time Temp Pulse Resp B/P (MAP) Pulse Ox O2 Delivery O2 Flow Rate FiO2 06/03/17 10:43 18 06/03/17 08:00 97.7 53 18 135/63 (87) 94 06/03/17 04:00 50 16 139/63 (88) 91 06/03/17 00:00 97.0 50 18 173/74 (107) 95 06/02/17 20:00 98.0 59 16 144/65 (91) 98 06/02/17 16:00 96.6 55 16 141/67 (91) 99 06/02/17 12:00 97.8 57 16 162/73 (102) 100 I/O 06/02/17 06/02/17 06/02/17 06/03/17 06/03/17 06/03/17 07:00 15:00 23:00 07:00 15:00 23:00 Intake Total 960 ml 1040 ml 480 ml Balance 960 ml 1040 ml 480 ml Intake Oral 960 ml 840 ml 480 ml IV Total 200 ml # Voids 2 4 5 # Bowel Movements 0 (Debra Sinha MD, R1) Result Diagram: 06/03/17 0616 06/03/17 0616 Objective Remarks GENERAL: This is a well-nourished, well-developed obese patient. Lying in bed. NAD EYES: Pupils equal round and reactive. Extraocular motions intact. No conjunctivae injection. CARDIOVASCULAR: Bradycardic, no murmurs, gallops, or rubs. RESPIRATORY: Clear to auscultation. Breath sounds equal bilaterally. No wheezes , rales, or rhonchi. GASTROINTESTINAL: Abdomen soft, non-tender, nondistended. No hepato-splenomegaly , or palpable masses. No guarding. MUSCULOSKELETAL: Extremities without clubbing, cyanosis, or edema. NEUROLOGICAL: Awake and alert. Motor and sensory grossly within normal limits. Normal speech. (Debra Sinha MD, R1) A/P Assessment and Plan 51-year-old female with history of HIV, diabetes presents with headache. LP performed due to concern for possible meningitis. Head CT negative for bleeding. Admitted for workup and treatment. Patient's renal function has improved and headaches improved. Discharge Planning Patient clinical improved Attending Attestation Note written by Massiel Sánchez FSU MS4 Reviewed by Debra Sinha, PGY-1 (Debra Sinha MD, R1) Attending Attestation Patient seen and examined with the medicine team. Case reviewed and discussed with the resident team. Agree with plan of care as discussed with me and documented in the resident note. (Marycarmen Parekh MD) Problem List: (1) Intractable headache ICD Codes: R51 - Headache Status: Acute Plan: Headaches much better with IV Tylenol, blood pressure improved as well. On admission: Head CT: negative WBC 9.2, CRP 1.38, ESR 40. Afebrile Normal neuro exam. LP performed in ED shows: 5 WBC, 5% PMN, 85% lymphocytes, 9% monocytes; 158 glucose, 42.9 protein CSF Gram stain negative. 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 There is a tiny enhancing nodule within the left of the mid line within the dominant cystic lesion -Neurosurgery consulted, appreciate recommendations -Conservative management with f/u testing in 6-12 months -Neuro checks -TSH borderline low, Prolactin borderline low - Pain regimen updated 06/02: -Held: Hydrocodone/acetaminophen 5 mg for pain 3-5; 10mg pain 6-10 -Dilaudid for breakthrough -IV Tylenol x1 (2) SADAF (acute kidney injury) ICD Codes: N17.9 - Acute kidney failure, unspecified Status: Acute Plan: Improving Cr today 1.46 -Nephrology consulted -recommends holding nephrotoxic agents including ritonavir and tenofovir - IVF discontinued -Renal U/S 05/30- small cyst R kidney, otherwise normal, no hydronephrosis -No emergent need for dialysis at the moment, Cr improving, will continue to monitor Cr -CPK 120 WNL (3) HIV (human immunodeficiency virus infection) ICD Codes: B20 - Human immunodeficiency virus [HIV] disease Status: Chronic Plan: History of HIV. States she is compliant with her meds. -Holding antiretrovirals until kidney function improves. F/u with HIV Dr outpatient -Absolute CD4 count: 466 -ID following (4) DM (diabetes mellitus) ICD Codes: E11.9 - Type 2 diabetes mellitus without complications Status: Acute Plan: On home Lantus 34units HS and Metformin. A1c 13.4. -Hold Metformin while inpatient -levemir 15 units HS -Low dose SSI w/ regular accuchecks (5) HTN (hypertension) ICD Codes: I10 - Essential (primary) hypertension Status: Acute Plan: BP today <140/ <70. . EKG 05/31: Sinus bradycardia -Amlodipine to 10 mg -Increase Hydralazine 50mg Q8hr -Valsartan added 160 mg PO daily (06/02) 06/02 -plasma metanephrines and, renin and aldosterone levels pending per nephrology recommendations (6) Skin lesion of back ICD Codes: L98.9 - Disorder of the skin and subcutaneous tissue, unspecified Status: Chronic Plan: She stated that she has history of back lesions that drain pus. Patient state these lesion occur intermittently since she received epidural injection for her last c/s Back lesion observed to be draining green-yellowish push on exam -Wound culture: Heavy growth of normal skin margi, no AFB or fungal elements seen. No leukocytosis on blood work. -MRI T-spine: Central disc protrusion C6-C7 without significant spinal stenosis. No abnormal contrast enhancement (7) Oral thrush ICD Codes: B37.0 - Candidal stomatitis Status: Acute Plan: Oral thrush noted on tongue, Pt with c/o sore throat pain -pt started on nystatin liq QID -continue to monitor (8) FEN Status: Acute Plan: Fluids: IVF NS on hold for now Electrolytes: Continue to monitor Nutrition: diabetic diet DVT ppx: SCDs, heparin SQ Q12h (Debra Sinha MD, R1) Problem Qualifiers (1) Intractable headache: Qualified Codes: R51 - Headache (2) DM (diabetes mellitus): (3) HTN (hypertension): Qualified Codes: I10 - Essential (primary) hypertension Debra Sinha MD, R1 Jun 03, 2017 11:00 Marycarmen Parekh MD Jun 03, 2017 11:21
[2017-06-03] MEDS ORDERED: AMLO10 PO (11:06)
[2017-06-03] MEDS ORDERED: HYDR-3516 PO (11:06)
[2017-06-03] MEDS ORDERED: DIOV160T6 PO (11:06)
[2017-06-03] MEDS ORDERED: Nystatin Liq SWISH-SWAL (11:06)
[2017-06-03] MEDS ORDERED: HYDR-3800 PO (11:06)
[2017-06-03] MEDS ORDERED: ACET325T15 PO (11:06)
[2017-06-03] MEDS ORDERED: CLON.2 PO (11:07)
--- NOTE | 2017-06-03 11:09 | HHI.DCPOC ---
Discharge Care Plan Diagnosis: (1) Intractable headache (2) Cephalalgia (3) HIV (human immunodeficiency virus infection) (4) Skin lesion of back (5) Oral thrush (6) SADAF (acute kidney injury) (7) Type 2 diabetes mellitus (8) HTN (hypertension) Goals to Promote Your Health * To prevent worsening of your condition and complications * To maintain your health at the optimal level Directions to Meet Your Goals Take your medications as prescribed Follow your dietary instruction Follow activity as directed Keep your appointments as scheduled Take your immunizations and boosters as scheduled If your symptoms worsen call your PCP, if no PCP go to Urgent Care Center or Emergency Room Smoking is Dangerous to Your Health. Avoid second hand smoke Call the 24-hour hour crisis hotline for domestic abuse at José Miguel Persaud MD, R3 Jun 03, 2017 11:09
[2017-06-03 12:00] VITALS: BP 139/66; PULSE 50; RESP 17; TEMP 97.8; O2SAT 93
[2017-06-04 12:13] LABS: METANEPHRINES <0.20 nmol/L (<0.50); NORMETANEPHRINE 0.58 nmol/L (<0.90); RENIN <0.6 ng/mL/h
--- NOTE | 2017-06-13 01:28 | HHI.DS ---
Discharge Summary Admission Date May 25, 2017 at 12:54 Discharge Date: Jun 03, 2017 Admitting Diagnosis Intractible Headahce (1) Intractable headache Diagnosis: Principal Plan: Today: improving pain. Continues to have pain with eye opening. Worsening renal functioning. On admission: Head CT: negative WBC 9.2, CRP 1.38, ESR 40. Afebrile Normal neuro exam. LP performed in ED shows: 5 WBC, 5% PMN, 85% lymphocytes, 9% monocytes; 158 glucose, 42.9 protein CSF Gram stain negative. 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 There is a tiny enhancing nodule within the left of the mid line within the dominant cystic lesion -Neurosurgery consulted, appreciate recommendations -Conservative management with f/u testing in 6-12 months -Neuro checks -TSH borderline low, Prolactin borderline low - Pain regimen updated: Hydrocodone/acetaminophen 5 mg for pain 3-5; 10mg pain 6-10 Dilaudid for breakthrough ICD Codes: R51 - Headache Status: Acute (2) SADAF (acute kidney injury) Diagnosis: Principal Plan: Creatinine of 4.59 today -Nephrology consulted -recommends holding nephrotoxic agents including ritonavir and tenofovir -tapering IVF -Renal U/S 3/5- small cyst R kidney, otherwise normal, no hydronephrosis -may need dialysis ICD Codes: N17.9 - Acute kidney failure, unspecified Status: Acute (3) HIV (human immunodeficiency virus infection) Diagnosis: Secondary Plan: History of HIV. States she is compliant with her meds. Unknown last CD4 count -Holding antiretrovirals until kidney function improves. -Absolute CD4 count: 466 -ID consulted ICD Codes: B20 - Human immunodeficiency virus [HIV] disease Status: Chronic (4) DM (diabetes mellitus) Diagnosis: Secondary Plan: On home Lantus 34units HS and Metformin. A1c 13.4. -Hold Metformin while inpatient -Continue Lantus -Low dose SSI w/ regular accuchecks ICD Codes: E11.9 - Type 2 diabetes mellitus without complications Status: Acute (5) HTN (hypertension) Diagnosis: Secondary Plan: BP WNL -Continue home clonidine - amlodipine added -Monitor vitals ICD Codes: I10 - Essential (primary) hypertension Status: Acute (6) Skin lesion of back Diagnosis: Secondary Plan: She stated that she has history of back lesions that drain pus. Patient state these lesion occur intermittently since she received epidural injection for her last c/s Back lesion observed to be draining green-yellowish push on exam -Wound culture: Heavy growth of normal skin margi, no AFB or fungal elements seen. No leukocytosis on blood work. -MRI T-spine: Central disc protrusion C6-C7 without significant spinal stenosis. No abnormal contrast enhancement ICD Codes: L98.9 - Disorder of the skin and subcutaneous tissue, unspecified Status: Chronic (7) Oral thrush Diagnosis: Secondary Plan: Oral thrush noted on tongue, Pt with c/o sore throat pain -pt started on nystatin liq QID -continue to monitor ICD Codes: B37.0 - Candidal stomatitis Status: Acute Consultants Neurosurgery- Dr. Keen Nephrology- Dr. Stack Infectious disease- Dr. Rocha Procedures Lumbar puncture- 05/25/17 Brief History 51-year-old female with history of HIV, diabetes, hypertension presents with worst headache of her life. She states the headache started around 2 AM in the morning. It woke her from sleep. Came on suddenly. She states it "feels like mashing brains in with a hammer." Endorses some nausea. No vomiting. States the pain is all over her head. Both sides. States she usually doesn't get headaches normally. Describes the pain as throbbing. 10/10. Has gotten worse since this morning. Denies any trauma to the head. Was given some pain medication the ED, denies alcohol. Denies any pain in rales. She states it hurts when she opens her eyes. Endorses photophobia. Endorses some neck stiffness. Denies any fever or chills. Was recently diagnosed with a UTI and yeast infection last week in ED. Some dizziness as well. No recent travel. No outdoor exposures. Has a history of HIV, which she has been taking her medications. Imaging Last Impressions Renal Ultrasound 05/30/17 0000 Signed Impressions: Service Date/Time: Tuesday, May 30, 2017 09:17 - CONCLUSION: Normal-sized kidneys without hydronephrosis. Fausto Ennis MD FACR Thoracic Spine MRI 05/27/17 0000 Signed Impressions: Service Date/Time: Saturday, May 27, 2017 13:56 - CONCLUSION: Central disc protrusion C6-C7 without significant spinal stenosis. No abnormal contrast enhancement. Fausto Ennis MD FACR Head CT 05/25/17 0708 Signed Impressions: Service Date/Time: Thursday, May 25, 2017 07:54 - CONCLUSION: Negative noncontrast CT Kashif Mon MD Lumbar Puncture Fluoroscopy 05/25/17 0000 Signed Impressions: Service Date/Time: Thursday, May 25, 2017 09:44 - CONCLUSION: Uncomplicated fluoroscopically guided lumbar puncture. 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 There is a tiny enhancing nodule to the left of midline within the predominantly cystic lesion. Kevin Boss MD PE at Discharge GENERAL: This is a well-nourished, well-developed obese patient. Lying in bed. NAD EYES: Pupils equal round and reactive. Extraocular motions intact. No conjunctivae injection. CARDIOVASCULAR: Bradycardic, no murmurs, gallops, or rubs. RESPIRATORY: Clear to auscultation. Breath sounds equal bilaterally. No wheezes , rales, or rhonchi. GASTROINTESTINAL: Abdomen soft, non-tender, nondistended. No hepato-splenomegaly , or palpable masses. No guarding. MUSCULOSKELETAL: Extremities without clubbing, cyanosis, or edema. NEUROLOGICAL: Awake and alert. Motor and sensory grossly within normal limits. Normal speech. Hospital Course Ms. Jerry is a 51-year-old female with past medical history of HIV, diabetes , hypertension presented to the ED with complaint of having the worst headache of her life. Patient was admitted for pain control and further workup .Head CT was normal and lumbar puncture procedure was done due to concern for meningitis. She was started on empiric antibiotics initially pending results from CSF studies. Infectious disease was consulted. MRI brain showed complex cystic mass within the sella largest measure of 2.1 cm, and it appeared that it was causing mass effect upon the optic chiasm, there is an tiny enhancing nodule on the left of the midline within the predominantly cystic lesion. Neurosurgery was consulted and they recommended conservative management with f/ u testing in 6-12 months as an outpatient. Lumbar puncture results were negative for bacterial meningitis and seemed to point more likely due to a viral etiology. LP showed: 5 WBC, 5% PMN, 85% lymphocytes, 9% monocytes; 158 glucose, 42.9 protein and CSF Gram stain and HSV were negative. Blood cultures and CSF cultures did not show any growth bacteria throughout the hospitalization. During the hospitalization patient hypertension was challenging to control. Patient also developed acute kidney injury that suspected to be due to IV contrast and HIV medication side effects. Nephrology was consulted. HIV medications were held, patient remained on IV fluids and kidney function improved. Multiple changes were made to patient's blood pressure medication until a combination was achieved to help her blood pressure remain stable. Blood pressure medications upon discharge were updated to amlodipine 10 mg, hydralazine was increased to 50mg Q 8 hours and valsartan was added at 160 mg daily. Patient also received treatment for oral trash while hospitalized. Patient was hemodynamically stable upon discharge with resolution of her headache. Pt Condition on Discharge: Stable Discharge Disposition: Discharge Home Discharge Instructions DIET: Follow Instructions for: Diabetic Diet Activities you can perform: Regular-No Restrictions Follow up Referrals: Endocrinology - 1 Week Infectious Disease - 1 Week PCP Follow-up - 1 Week New Orders: MRI Brain Stealth W&W/O Contra - 6 Months New Medications: Acetaminophen (Eq Acetaminophen) 325 Mg Tab 650 MG PO Q6H PRN for PAIN SCALE 1 TO 2 or FEVER, #60 TAB 2 Refills Amlodipine (Norvasc) 10 Mg Tab 10 MG PO DAILY, #30 TAB 1 Refill Clonidine (Catapres) 0.2 Mg Tab 0.2 MG PO TID, #90 TAB 1 Refill Hydralazine HCl (Hydralazine HCl) 50 Mg Tablet 50 MG PO Q8HR, #30 TAB 1 Refill Hydrocodone/Acetaminophen (Hydrocodone-Acetamin 5-325 mg) 5 Mg-325 Mg Tablet 1 TAB PO Q4H PRN for PAIN SCALE 3 TO 5, #30 TAB Valsartan (Diovan) 160 Mg Tab 160 MG PO DAILY, #30 TAB 1 Refill [Nystatin Liq] () 5 ML SUSP 5 ML SWISH-SWAL QID, #100 BOTTLE Continued Medications: Emtricitabine-Tenofovir Disoproxil Fumarate (Truvada) 100-150 Mg Tab 1 TAB PO DAILY for Mgmt Viral Infection, #30 TAB 0 Refills Insulin Glargine Inj (Lantus Inj) 1,000 Unit/10 Ml Vial 34 UNITS SQ HS for Blood Sugar Management, VIAL 0 Refills Metformin (Metformin) 1,000 Mg Tab 1000 MG PO DAILY for Blood Sugar Management, #30 TAB 0 Refills With a meal Ritonavir (Norvir) 100 Mg Cap 100 MG PO DAILY for Mgmt Viral Infection, #180 CAP 0 Refills Discontinued Medications: Cephalexin (Keflex) 500 Mg Cap 500 MG PO Q12H for Infection for 7 Days, #14 CAP 0 Refills Clonidine (Clonidine) 0.3 Mg Tab 0.3 MG PO TID for Blood Pressure Management, #60 TAB 0 Refills Debra Sinha MD, R1 Jun 13, 2017 01:27
== END 2017-06-03 13:00 | disposition home or self-care (01) | DRG 102 ==
LOC: NEPC 06:30 → NEDA 12:54 → N07B 16:23
PROVIDERS: ADMIT Family Medicine; ATTEND Family Medicine
PROC: 009U3ZX Drainage of Spinal Canal, Percutaneous Approach, Diagnostic (ICD-10-PCS; principal; 2017-05-25)
PROC: B01BZZZ Fluoroscopy of Spinal Cord (ICD-10-PCS; 2017-05-25)
DX: R51 Headache (principal); B20 Human immunodeficiency virus [HIV] disease; N17.9 Acute kidney failure, unspecified; B37.0 Candidal stomatitis; E66.01 Morbid (severe) obesity due to excess calories; M51.24 Other intervertebral disc displacement, thoracic region; I10 Essential (primary) hypertension; J44.9 Chronic obstructive pulmonary disease, unspecified; E11.9 Type 2 diabetes mellitus without complications; G89.4 Chronic pain syndrome; G93.0 Cerebral cysts; L98.9 Disorder of the skin and subcutaneous tissue, unspecified; R00.1 Bradycardia, unspecified; M19.90 Unspecified osteoarthritis, unspecified site; F41.9 Anxiety disorder, unspecified; F17.210 Nicotine dependence, cigarettes, uncomplicated; Z68.39 Body mass index [BMI] 39.0-39.9, adult; Z79.4 Long term (current) use of insulin; Z83.3 Family history of diabetes mellitus; Z86.14 Personal history of Methicillin resistant Staphylococcus aureus infection; Z88.5 Allergy status to narcotic agent
CPT/HCPCS: 62270; 70450; 70553; 72157; 76775; 76937; 77003; 80048; 80053; 80069; 81001; 82088; 82550; 82570; 82945; 82948; 83036; 83835; 84146; 84157; 84244; 84300; 84443; 85025; 85027; 85610; 85652; 85730; 86140; 86355; 86357; 86359; 86360; 86403; 87015; 87040; 87070; 87102; 87116; 87205; 87206; 87529; 87641; 89051; 93005; 96361; 96365; 96375; A9579; J0131; J0133; J0290; J0696; J0713; J1170; J1200; J1644; J1815; J1885; J2405; J2550; J2765; J3370; J7030; J7040; J7050

== ENCOUNTER 2017-08-16 14:32 | Emergency (ER) | payer MEDICAID ==
[~2017-08-16] VITALS: Ht 175.3 cm; Wt 130.0 kg
[~2017-08-16 14:32] MED LIST changes: +ACET325T15 PO; +AMLO10 PO; -CEPH-460 PO; +CLON.2 PO; -CLON0.3T PO; -DIFL150T PO; +DIOV160T6 PO; +EMTR1TAB5 PO; +HYDR-3516 PO; +HYDR-3800 PO; +Nystatin Liq SWISH-SWAL; +RITO100 PO
[2017-08-16 14:43] VITALS: BP 137/74; PULSE 87; RESP 26; TEMP 98.9; O2SAT 98
[2017-08-16 15:10] LABS: AUTOMATED NEUTROPHIL # 4.2 TH/MM3 (1.8-7.7); BASOPHIL % 0.5 % (0.0-2.0); EOSINOPHIL # 0.1 TH/MM3 (0-0.4); EOSINOPHIL % 1.1 % (0.0-4.0); LYMPHOCYTE # 2.4 TH/MM3 (1.0-4.8); MEAN CELL VOLUME 79.3 FL (80.0-100.0); MEAN CORPUSCULAR HEMOGLOBIN 25.7 PG (27.0-34.0); MEAN CORPUSCULAR HGB CONC 32.4 % (32.0-36.0); MEAN PLATELET VOLUME 7.5 FL (7.0-11.0); MONO % 10.4 % (0.0-8.0); MONOCYTE # 0.8 TH/MM3 (0-0.9); PLATELET COUNT 325 TH/MM3 (150-450); RED BLOOD COUNT 4.67 MIL/MM3 (4.00-5.30); RED CELL DISTRIBUTION WIDTH 19.8 % (11.6-17.2); WHITE BLOOD COUNT 7.4 TH/MM3 (4.0-11.0)
[2017-08-16 15:33] LABS: BICARBONATE 30.4 MEQ/L (21.0-32.0); BLOOD UREA NITROGEN 7 MG/DL (7-18); CALCIUM 8.5 MG/DL (8.5-10.1); CHLORIDE 102 MEQ/L (98-107); GLUCOSE,RANDOM 76 MG/DL (74-106); SODIUM (NA) 139 MEQ/L (136-145)
[2017-08-16 15:40] LABS: CREATININE 0.88 MG/DL (0.50-1.00); GLOMERULAR FILTRATION RATE 82 ML/MIN (>89); TROPONIN I LESS THAN 0.02 NG/ML (0.02-0.05)
[2017-08-16] MEDS ORDERED: methylPREDNISolone SOD SUCC 125 MG/2 ML VIAL IV PUSH ONE (15:45)
[2017-08-16 15:49] VITALS: BP 134/61; PULSE 78; RESP 22; O2SAT 99
[2017-08-16 15:53] VITALS: O2SAT 99
[2017-08-16] MEDS ORDERED: ONDANSETRON ODT 4 MG TAB PO ONE (16:00)
[2017-08-16] MEDS ORDERED: HYDROmorphone HCL PF 0.5 MG/0.5 ML SYRINGE IV PUSH ONE (16:00)
[2017-08-16] MEDS: RESP: ALBUTEROL 2.5 MG/IPRATROPIUM 0.5 MG NEB (SCH) INH ×2 (16:07→16:08)
[2017-08-16 16:08] LABS: ALBUMIN 3.3 GM/DL (3.4-5.0); DIRECT BILIRUBIN ADULT 0.2 MG/DL (0.0-0.2)
[2017-08-16 16:10] LABS: INDIRECT BILIRUBIN 0.8 MG/DL (0.0-0.8); TOTAL PROTEIN 8.4 GM/DL (6.4-8.2)
[2017-08-16 16:12] LABS: INTERNATIONAL NORMALIZED RATIO 1.1 RATIO; PROTHROMBIN TIME - PATIENT 10.7 SEC (9.8-11.6)
[2017-08-16] MEDS ORDERED: METF500T PO (16:23)
--- NOTE | 2017-08-16 16:39 | RADRPT ---
EXAM DATE: 08/16/2017 4:30 PM EDT AGE/SEX: 52 years / Female INDICATIONS: Right sided chest pain for three days. CLINICAL DATA: This is the patient's initial encounter. Patient reports that signs and symptoms have been present for 3 days and indicates a pain score of 5/10. MEDICAL/SURGICAL HISTORY: None. None. COMPARISON: [facility] – [place]ST SINGLE AP, 10/17/2015. . FINDINGS: A single AP view of the chest demonstrates the lungs to be symmetrically aerated without e vidence of mass, infiltrate or effusion. The cardiomediastinal contours are unremarkable. Osseous s tructures are intact. CONCLUSION: No acute intrathoracic disease. Stable examination. Electronically signed by: Lorenzo Yarbrough MD 08/16/2017 4:37 PM EDT
--- NOTE | 2017-08-16 17:01 | PD ---
HPI Chief Complaint: Chest Pain Time Seen by Provider: 15:25 Travel History International Travel<30 days: No Contact w/Intl Traveler<30days: No Traveled to known affect area: No History of Present Illness HPI 52-year-old female that presents to the ED for evaluation of right-sided chest pain that radiates to her back and shoulder as well as shortness of breath. Per patient she has a history of chronic shortness of breath. She also has a history of HIV and COPD. She states that shortness of breath has worsened for the past 3 days and she developed a right sided chest pain the past 3 days. Per patient is pressure-like and gets worse with deep breaths and with exertion. Per patient she had a heart cath that was negative about a year ago. She states that the pain gets worse when she exerts herself. Nothing makes it better. She states that she also feels very short of breath. She has been taking her albuterol inhaler by her provider but she states that this does not seem to be helping. She did went to see her doctor who gave her the albuterol inhaler. She denies any diarrhea. No bowel movement issues. No urinary issues. No fevers chills or sweats. She is not taking currently any steroids. She states that she has not had any surgeries to her abdomen. PFSH Past Medical History Asthma: Yes Autoimmune Disease: Yes (HIV) Anxiety: Yes Depression: No Heart Rhythm Problems: No Cancer: No Cardiac Catheterization: Yes Cardiovascular Problems: Yes (HTN) High Cholesterol: No Congestive Heart Failure: No COPD: Yes Diabetes: Yes Patient Takes Glucophage: Yes Diminished Hearing: No Endocrine: Yes (DM) GERD: Yes (PT STATED VOMITING BROWN AT HOME) Genitourinary: No Heparin Induced Thrombocytopen: No Hypertension: Yes Immune Disorder: Yes (HIV +) Musculoskeletal: No Neurologic: No Psychiatric: Yes Reproductive: No Respiratory: Yes Integumentary: Yes (S/P MRSA AFTER C SEC IN JAN 01) Myocardial Infarction: No ?: Not Menopausal: No : 11 Para: 10 : 1 Past Surgical History Surgical History: No Previous Surgery Section: Yes (X2) Coronary Artery Bypass Graft: No Gynecologic Surgery: Yes (HX OF MRSA FOLLOWING C SECTION 12/26/06) Social History Alcohol Use: No Tobacco Use: No Substance Use: No Allergies-Medications (Allergen,Severity, Reaction): Coded Allergies: morphine (Unverified Allergy, Severe, 08/16/17) Reported Meds & Prescriptions Reported Meds & Active Scripts Active Nebulizer 1 Mis Mis Ea .XX DIRECTED Albuterol Neb (Albuterol Sulfate) 2.5 Mg/0.5 Ml Neb 2.5 Mg NEB Q4HR NEB PRN Note: The Albuterol Sulfate Inhalation Solution is concentrated and must be diluted. Read complete instructions carefully before using. Azithromycin 250 Mg Tab 250 Mg PO DIRECTED Take 2 tabs (500 mg) on day 1 then 1 tab daily x 4 days. Prednisone 20 Mg Tab 20 Mg PO BID 5 Days Catapres (Clonidine) 0.2 Mg Tab 0.2 Mg PO TID Diovan (Valsartan) 160 Mg Tab 160 Mg PO DAILY Norvasc (Amlodipine Besylate) 10 Mg Tab 10 Mg PO DAILY Hydralazine HCl 50 Mg Tablet 50 Mg PO Q8HR [Nystatin Liq] 5 ML Susp 5 Ml SWISH-SWAL QID Reported Metformin (Metformin HCl) 500 Mg Tab 500 Mg PO BIDPC Norvir (Ritonavir) 100 Mg Cap 100 Mg PO DAILY Truvada (Emtricitabine-Tenofovir Disoproxil Fumarate) 100-150 Mg Tab 1 Tab PO DAILY Lantus Inj (Insulin Glargine) 1,000 Unit/10 Ml Vial 34 Units SQ HS Review of Systems Except as stated in HPI: all other systems reviewed are Neg Physical Exam Narrative GENERAL: SKIN: Warm and dry. HEAD: Atraumatic. Normocephalic. EYES: Pupils equal and round. No scleral icterus. No injection or drainage. ENT: No nasal bleeding or discharge. Mucous membranes pink and moist. Tongue is midline. No uvula deviation. NECK: Trachea midline. No JVD. CARDIOVASCULAR: Regular rate and rhythm. No murmurs, S3, S4. RESPIRATORY: No accessory muscle use. Wheezing heard in all lung phan. Breath sounds equal bilaterally. GASTROINTESTINAL: Abdomen soft, non-tender, nondistended. Hepatic and splenic margins not palpable. MUSCULOSKELETAL: Extremities without clubbing, cyanosis, or edema. No obvious deformities. Full range of motion of the upper and lower extremities bilaterally. 2+ pulses bilaterally. NEUROLOGICAL: Awake and alert. No obvious cranial nerve deficits. Motor grossly within normal limits. Five out of 5 muscle strength in the arms and legs. Normal speech. PSYCHIATRIC: Appropriate mood and affect; insight and judgment normal. Data Data Last Documented VS Vital Signs Date Time Temp Pulse Resp B/P (MAP) Pulse Ox O2 Delivery O2 Flow Rate FiO2 08/16/17 18:14 96 20 146/84 (104) 96 Room Air 08/16/17 14:43 98.9 Orders Orders Electrocardiogram (08/16/17 14:47) Complete Blood Count With Diff (08/16/17 14:47) Basic Metabolic Panel (Bmp) (08/16/17 14:47) Ckmb (Isoenzyme) Profile (08/16/17 14:47) Troponin I (08/16/17 14:47) Chest, Single Ap (08/16/17 14:47) Iv Access Insert/Monitor (08/16/17 14:47) Ecg Monitoring (08/16/17 14:47) Oxygen Administration (08/16/17 14:47) Oximetry (08/16/17 14:47) Prothrombin Time / Inr (Pt) (08/16/17 15:34) Act Partial Throm Time (Ptt) (08/16/17 15:34) Hepatic Functional Panel (08/16/17 15:34) Lipase (08/16/17 15:34) Ecg Monitoring (08/16/17 15:34) Methylprednisolone So Succ Inj (Solumedr (08/16/17 15:45) Albuterol-Ipratropium Neb (Duoneb Neb) (08/16/17 15:45) Ct Pulmonary Angiogram (08/16/17 ) Us Abdomen Gallbladder (08/16/17 ) Hydromorphone Pf Inj (Dilaudid Pf Inj) (08/16/17 16:00) Ondansetron Odt (Zofran Odt) (08/16/17 16:00) Iohexol 350 Inj (Omnipaque 350 Inj) (08/16/17 17:52) Albuterol-Ipratropium Neb (Duoneb Neb) (08/16/17 18:30) Ed Discharge Order (08/16/17 18:33) Labs Laboratory Tests Test 08/16/17 15:00 08/16/17 15:40 White Blood Count 7.4 TH/MM3 Red Blood Count 4.67 MIL/MM3 Hemoglobin 12.0 GM/DL Hematocrit 37.0 % Mean Corpuscular Volume 79.3 FL Mean Corpuscular Hemoglobin 25.7 PG Mean Corpuscular Hemoglobin Concent 32.4 % Red Cell Distribution Width 19.8 % Platelet Count 325 TH/MM3 Mean Platelet Volume 7.5 FL Neutrophils (%) (Auto) 56.0 % Lymphocytes (%) (Auto) 32.0 % Monocytes (%) (Auto) 10.4 % Eosinophils (%) (Auto) 1.1 % Basophils (%) (Auto) 0.5 % Neutrophils # (Auto) 4.2 TH/MM3 Lymphocytes # (Auto) 2.4 TH/MM3 Monocytes # (Auto) 0.8 TH/MM3 Eosinophils # (Auto) 0.1 TH/MM3 Basophils # (Auto) 0.0 TH/MM3 CBC Comment DIFF FINAL Differential Comment Blood Urea Nitrogen 7 MG/DL Creatinine 0.88 MG/DL Random Glucose 76 MG/DL Calcium Level 8.5 MG/DL Sodium Level 139 MEQ/L Potassium Level 3.9 MEQ/L Chloride Level 102 MEQ/L Carbon Dioxide Level 30.4 MEQ/L Anion Gap 7 MEQ/L Estimat Glomerular Filtration Rate 82 ML/MIN Total Bilirubin 1.0 MG/DL Direct Bilirubin 0.2 MG/DL Indirect Bilirubin 0.8 MG/DL Aspartate Amino Transf (AST/SGOT) 24 U/L Alanine Aminotransferase (ALT/SGPT) 17 U/L Alkaline Phosphatase 63 U/L Total Creatine Kinase 57 U/L Troponin I LESS THAN 0.02 NG/ML Total Protein 8.4 GM/DL Albumin 3.3 GM/DL Lipase 93 U/L Prothrombin Time 10.7 SEC Prothromb Time International Ratio 1.1 RATIO Activated Partial Thromboplast Time 22.0 SEC [facility] Medical Decision Making Medical Screen Exam Complete: Yes Emergency Medical Condition: Yes Medical Record Reviewed: Yes Interpretation(s) CBC & BMP Diagram 08/16/17 15:00 Calcium Level 8.5 Last Impressions Chest X-Ray 08/16/17 1447 Signed Impressions: CONCLUSION: No acute intrathoracic disease. Stable examination. Gall Bladder Ultrasound 08/16/17 0000 Signed Impressions: CONCLUSION: CT Angiography 08/16/17 0000 Signed Impressions: CONCLUSION: troponin and CKMB negative CT angiogram showed chronic changes but no sign of acute disease. No PE. gallbladder US negative for gallbladder disease but lesion noted on kidney and fatty liver. Differential Diagnosis Chest pain versus typical chest pain versus an STEMI versus gallbladder disease versus kidney disease versus pneumonia versus PE versus COPD exacerbation Narrative Course 52-year-old female that presents to the ED for evaluation of right-sided chest pain and shortness of breath. Patient was properly examined and was found to have signs and symptoms concerning for possible COPD exacerbation versus PE versus pneumonia versus gallbladder disease. Labs and imaging were ordered. Patient was given breathing treatments and Solu-Medrol as well as pain medication. Labs and imaging showed Diagnosis Primary Impression: COPD (chronic obstructive pulmonary disease) Qualified Codes: J44.1 - Chronic obstructive pulmonary disease with (acute) exacerbation Referrals: Fahad Vásquez MD, R. Steven MD Patient Instructions: General Instructions Additional Instructions: F/u with pulmunologist and PCP. Motrin and Tylenol for pain and fever. You can use [id number] antihistamine as well as well as Mucinex as needed for runny nose and congestion. Cough drops for cough as needed. Drink plenty of fluids. Follow-up with PCP. See ED for worsening symptoms. Your US of your gallbladder showed a small cyst on your right kidney. Radiologist recommends following it up with your PCP. Med/Other Pt SpecificInfo: Prescription(s) given Scripts Nebulizer (Nebulizer) 1 Mis Mis EA .XX DIRECTED for Breathing Treatment, #1 0 Refills Prov: Zachary Foy MD 08/16/17 Albuterol Neb (Albuterol Neb) 2.5 Mg/0.5 Ml Neb 2.5 MG NEB Q4HR NEB Y for SHORTNESS OF BREATH, #30 EA Note: The Albuterol Sulfate Inhalation Solution is concentrated and must be diluted. Read complete instructions carefully before using. Prov: Zachary Foy MD 08/16/17 Azithromycin (Azithromycin) 250 Mg Tab 250 MG PO DIRECTED for Infection, #6 TAB 0 Refills Take 2 tabs (500 mg) on day 1 then 1 tab daily x 4 days. Prov: Zachary Foy MD 08/16/17 Prednisone (Prednisone) 20 Mg Tab 20 MG PO BID for 5 Days, #10 TAB 0 Refills Prov: Zachary Foy MD 08/16/17 Disposition: 01 DISCHARGE HOME Condition: Arthur Merida August 16, 2017 17:01
--- NOTE | 2017-08-16 17:47 | RADRPT ---
EXAM DATE: 08/16/2017 5:29 PM EDT AGE/SEX: 52 years / Female INDICATIONS: Right upper quadrant pain. CLINICAL DATA: This is the patient's initial encounter. Patient reports that signs and/or symptoms h ave been present for 4 - 6 days and indicates a pain score of 6/10. LOCATION: LATERALITY: MEDICAL/SURGICAL HISTORY: Hypertension. COMPARISON: No prior [facility] exams available for comparison MEASUREMENTS (cm x cm x cm): Liver:__ 18.7 cm length Common Bile Duct:__ 4mm Right Kidney:__ 11.3 x 4.8 x 6.0 cm. FINDINGS: Liver: There is increased echogenicity throughout the liver parenchyma. No dilated biliary ducts. No definite ascites. Portal Vein: Hepatopedal flow seen in portal vein. Common Duct: No intraluminal mass or stone visualized. Gallbladder: Demonstrates no wall thickening or pericholecystic fluid. No stones visualized. Pancreas: Not well visualized. Right Kidney: The kidney is normal in size, shape and position. There is no hydronephrosis. There is a focal 1.4 cm hyperechoic mass along the mid pole of the right kidney. CONCLUSION: 1. There is a focal single hyperechoic mass along the mid pole of the right kidney measuring 1.4 cm. This would be suggestive of an angiomyolipoma. This can be further evaluated on a nonemergent outpat ient basis with an MRI of the kidneys if clinically indicated. 2. Increased echogenicity of the liver suggestive of fatty infiltration and/or hepatocellular diseas e. 3. No evidence of gallstones or biliary tract obstruction. Electronically signed by: Lorenzo Yarbrough MD 08/16/2017 5:46 PM EDT
[2017-08-16] MEDS ORDERED: IOHEXOL 350 MG/ML 10 ML VIAL (for RAD DIAG) IVCONTRAST ONE (17:52)
--- NOTE | 2017-08-16 18:05 | RADRPT ---
EXAM DATE: 08/16/2017 5:55 PM EDT AGE/SEX: 52 years / Female INDICATIONS: Shortness of breath. CLINICAL DATA: This is the patient's initial encounter. Patient reports that signs and symptoms have been present for 1 day and indicates a pain score of 4/10. MEDICAL/SURGICAL HISTORY: Hypertension. Chronic obstructive pulmonary disease. HIV. None. RADIATION DOSE: 23.12 CTDI (mGy) COMPARISON: No prior [facility] exams available for comparison. TECHNIQUE: Volumetric scanning was performed using a multi-row detector CT scanner during bolus infu bisi of 75 ml Omnipaque 350 (iohexol) nonionic water-soluble contrast as a single exam dose. The breana a was post processed with a variety of visualization algorithms including full volume maximum intensi ty projection and sliding thin slab reformation. Using automated exposure control and adjustment of the mA and/or kV according to patient size, radiation dose was kept as low as reasonably achievable t o obtain optimal diagnostic quality images. FINDINGS: Pulmonary Arteries: No filling defects are seen in the pulmonary arteries out to the subse gmental vessels. The left and right pulmonary arteries are normal in diameter. Lung: Groundglass density in the right lung apex. Bibasilar atelectatic changes. Lungs are otherwise clear. Effusion: None. Mediastinum: No evidence of mediastinal or hilar adenopathy. Other: There are prominent lymph nodes identified in the axilla bilaterally. Largest on the left claudia sures approximately 3 cm with a 2.5 cm node on the right.. CONCLUSION: 1. Nonspecific groundglass density in the right lung apex with bibasilar atelectatic changes. 2. No pulmonary embolus. 3. Prominent lymph nodes in both axilla. There is basically 1 prominent node on the right and one or 2 on the left. These may be reactive. No additional adenopathy identified Electronically signed by: Tony White MD 08/16/2017 6:04 PM EDT
[2017-08-16 18:14] VITALS: BP 146/84; PULSE 96; RESP 20; O2SAT 96
[2017-08-16] MEDS ORDERED: ALBU.5I NEB (18:30)
[2017-08-16] MEDS ORDERED: AZIT250T3 PO (18:30)
[2017-08-16] MEDS ORDERED: NEBULIZER1 MI1 (18:30)
[2017-08-16] MEDS ORDERED: PRED20 PO (18:30)
[2017-08-16] MEDS ORDERED: RESP: ALBUTEROL 2.5 MG/IPRATROPIUM 0.5 MG NEB (SCH) INH (18:30)
--- NOTE | 2017-08-16 18:54 | EKG ---
Date Performed: 08/16/2017 Time Performed: 14:58:44 PTAGE: 52 years EKG: Sinus rhythm NORMAL ECG Compared to prior electrocardiogram, rate has increased . PREVIOUS TRACING : 05/31/2017 10.42 DOCTOR: Harshad Garcia Interpretating Date/Time 08/16/2017 18:52:44
== END 2017-08-16 19:54 | disposition home or self-care (01) ==
LOC: NEPC 14:32
DX: B20 Human immunodeficiency virus [HIV] disease (principal); J44.1 Chronic obstructive pulmonary disease with (acute) exacerbation; E11.9 Type 2 diabetes mellitus without complications; I10 Essential (primary) hypertension; Z79.4 Long term (current) use of insulin
CPT/HCPCS: 71045; 71275; 76705; 80048; 80076; 82550; 83690; 84484; 85025; 85610; 85730; 93005; 94640; 94664; 96374; 96375; 99285; J1170; J2930; Q9967